=== PATIENT | female | born 1950 | race Caucasian/White ===

== ENCOUNTER 2020-12-18 10:03 | Outpatient (CLI) | payer MEDICARE, SELFPAY ==
--- NOTE | ~2020-12-18 | CT_ITS ---
EXAMINATION: CT lung screening EXAM DATE: 12/18/2020 10:37 INDICATION: Personal hx of tobacco use hx tobacco dependence . Cervical cancer. TECHNIQUE: Spiral low dose CT of the chest without contrast. Axial, coronal and sagittal images were reviewed. The dose-length product (DLP) for this examination was 189.34 mGy-cm. The exposure was t ailored according to patient size (auto mA exposure control), and iterative reconstruction (ASIR) was used as additional dose reduction technique. Comparison is made to prior examination from 07/27/2018 . FINDINGS: Calcified right upper lobe granuloma. Calcified mediastinal granulomata. There is [address] rage dimension left lower lobe lateral sulcus nodule unchanged, a noncalcified granuloma. Some scatte red linear lingular atelectasis. Lungs are otherwise clear, no suspicious intraparenchymal nodules. There occlusion of a subsegmental right lower lobe bronchus for about 5 mm of its course (axial image 82), without postobstructive atelectasis. This could be some debris but also could indicate endobron chial nodule, possibility which renders this category 4A. Tracheobronchial tree otherwise widely chaves nt. There is no mediastinal, hilar or axillary lymphadenopathy. There are no pleural or pericardial eff usions. There is no pneumothorax. Heart normal in size. There is mild coronary arterial calcifi cation, arterial sclerosis. Small left adrenal adenoma. There is mild to moderate thoracic spondylo sis without osteoblastic or osteolytic lesions identified. IMPRESSION: Lung-RADS category 4A, suspicious (5-15 % chance of malignancy); recommend followup LDCT in 3 months. Reviewed, dictated and finalized at location B. IMPRESSION: Lung-RADS category 4A, suspicious (5-15 % chance of malignancy); re commend followup LDCT in 3 months.
--- NOTE | ~2020-12-18 | DEXA_ITS ---
Bone Density Report Name: Carol Perez Age: 70 Sex: Female Ethnicity: White Date of : 1950 Indication: postmenopausal; screening for osteoporosis; height loss; history of glucocorticoids; cancer; hysterectomy; Referring Provider: Bobby Minor Study: Bone densitometry was performed. Exam Date: December 18, 2020 Accession number: [id number] Bone Density: Region BMD T-score Z-score Classification AP Spine(L1, L2, L3) 0.944 -0.7 1.3 Normal Femoral Neck (Left) 0.758 -0.8 0.9 Normal Total Hip (Left) 0.939 0.0 1.4 Normal Femoral Neck (Right) 0.785 -0.6 1.1 Normal Total Hip (Right) 0.966 0.2 1.6 Normal Femoral Neck Mean 0.771 -0.7 1.0 Normal Total Hip Mean 0.952 0.1 1.5 Normal World Health Organization criteria for BMD impression classify patients as: Normal (T-score at or above -1.0), Osteopenia (T-score between -1.0 and -2.5), or Osteoporosis (T-score at or below -2.5). 10-year Fracture Risk: FRAX not reported because: All T-scores for Spine Total, Hip Total, Femoral Neck at or above -1.0 Clinical Information Provided by Patient: Has taken Glucocorticoids Has used the following medications: Vitamin D, Calcium Has the following medical conditions: Cancer, Hysterectomy, hypothyroidism Patient maximum height was 66 Menopause Age: 27 Drinks caffeinated beverages Onset of menses at age 15 Number of children 0 Impression: The patient has normal bone mass. The patient has risk factors, including: history of glucocorticoid therapy. Discussion: BONE DENSITY IS ABOVE THE MINIMUM DESIRABLE LEVEL AT ALL SKELETAL SITES TESTED. This patient?s bone mineral density is above the minimum desirable level (T-score -1.0 or better) at all sites measured. The patient should follow a healthful lifestyle (good nutrition with adequate calcium and vitamin D, and appropriate weight-bearing exercise). Follow-Up: Consider repeating this study in 5 years or sooner if there is some new clinical indication. Reported by: Dr. Neftaly Javier on 12/18/2020 11:13:00 AM. Reviewed, dictated and finalized at [facility]
--- NOTE | ~2020-12-18 | MM_ITS ---
EXAMINATION: MM screening dru BI w kristi HISTORY: Screening TECHNIQUE: Craniocaudal and mediolateral oblique 3-D tomosynthesis images were obtained and synthetic 2-D images were generated. CAD analysis was submitted and interpreted. COMPARISON: Comparison to multiple prior studies sequentially, with oldest reviewed study dated 03/03. BREAST PARENCHYMAL COMPOSITION: There are scattered areas of fibroglandular density. FINDINGS: There is no evidence of suspicious mass, calcification, or architectural distortion to sugg est malignancy in either breast. There has been no suspicious interval change. IMPRESSION: 1. No mammographic evidence of malignancy. 2. Recommend routine screening mammography in one year. BI-RADS Category 1: Negative Reviewed, dictated and finalized at location A.
== END 2020-12-18 10:04 | disposition home or self-care (01) ==
PROVIDERS: PCP Internal Medicine; Visit Provider Internal Medicine
DX: Z12.2 Encounter for screening for malignant neoplasm of respiratory organs (principal); Z87.891 Personal history of nicotine dependence; Z12.31 Encounter for screening mammogram for malignant neoplasm of breast; M81.0 Age-related osteoporosis without current pathological fracture
CPT/HCPCS: 71271; 77063; 77067; 77080

== ENCOUNTER 2021-06-08 07:06 | Outpatient (CLI) | payer MEDICARE, BC, SELFPAY ==
[2021-06-08 07:21] LABS: Appearance Urine Clear (Clear); Bilirubin Urine Negative (Negative); Color Urine Light Yellow (Yellow); Glucose Urine UA Negative (Negative); Ketones Urine Negative (Negative); Leukocyte Esterase Ur Negative (Negative); Nitrate Urine Negative (Negative); Protein Urine Negative (Negative); Urobilinogen Urine 0.2 mg/dL (0.2-1.0)
[2021-06-08 07:27] LABS: Add Urine Microscopic? YES; Bacteria Urine 1+ /hpf; Blood Urine Trace-Intact (Negative); RBC Urine None seen /hpf (0-2); Squamous Epithelial Cell Urine Few /hpf (Few); WBC Urine 0-3 /hpf (0-3)
[2021-06-08 07:30] LABS: Hemoglobin A1C 5.7 % (<5.7)
[2021-06-08 09:17] LABS: Alanine Aminotransferase 33 U/L (14-59); Albumin Level 4.3 g/dL (3.4-5.0); Alkaline Phosphatase 58 U/L (46-116); Anion Gap 7 mmol/L (8-16); Aspartate Amino Transferase 18 U/L (15-37); Bilirubin,Total 0.5 mg/dL (0.00-1.00); Blood Urea Nitrogen 13 mg/dL (7-18); Carbon Dioxide 33 mmol/L (21-32); Chloride 102 mmol/L (98-108); Cholesterol 257 mg/dL (0-200); Creatine Kinase 106 U/L (26-192); Estimated Glomerular Filt Rate 59; Free T3 2.58 pg/mL (2.18-3.98); Free T4 Free Thyroxine 1.08 ng/dL (0.76-1.46); Glucose 112 mg/dL (70-99); HDL Direct 49 mg/dL (40-60); LDL Cholesterol Calculated 171 mg/dL (<130); Osmolality Calculated 295 mOsm/kg (285-295); Potassium 4.2 mmol/L (3.5-5.1); Sodium 142 mmol/L (136-145); Thyroid Stimulating Hormone 3.62 uIU/mL (0.36-3.74); Total Protein 7.4 g/dL (6.4-8.2); Triglycerides 187 mg/dL (0-150)
[2021-06-10 14:31] LABS: Vitamin D 25 Hydroxy 33 ng/mL (30-100)
== END 2021-06-08 07:07 | disposition home or self-care (01) ==
LOC: CHSLAB 07:12
PROVIDERS: PCP Internal Medicine; Visit Provider Internal Medicine
DX: E78.2 Mixed hyperlipidemia (principal); I10 Essential (primary) hypertension; R73.01 Impaired fasting glucose; E03.4 Atrophy of thyroid (acquired); M81.0 Age-related osteoporosis without current pathological fracture
CPT/HCPCS: 36415; 80053; 80061; 81001; 82306; 82550; 83036; 84439; 84443; 84481

== ENCOUNTER 2021-06-29 10:11 | Outpatient (CLI) | payer MEDICARE, BC, SELFPAY ==
--- NOTE | ~2021-06-29 | CT_ITS ---
EXAMINATION: CT abdomen pelvis wo con DATE: 06/29/2021 10:34 INDICATION: Periumbilical pain/pressure when stretching of bending over TECHNIQUE: Computed tomography (CT) of the abdomen and pelvis was performed without intravenous contr ast. Automated exposure control and iterative reconstruction technique were employed. Exam dose: 115 8.90 mGy-cm total exam DLP. COMPARISON: None. FINDINGS: Normal heart size. No pericardial or pleural effusion. The lung bases are clear of infiltra te or consolidation. Very small sliding hiatal hernia. The liver, gallbladder, bile ducts are unremarkable. Multiple calcified splenic granulomas. No spleno megaly. No pancreatic mass lesion, calcification or ductal dilatation. Normal morphology of the adrenal glands. No renal mass lesion or urinary tract calculus or hydroureteronephrosis. The urinary bladder is unrem arkable. Status post hysterectomy. Normal caliber of the abdominal aorta; no abdominal aortic aneurysm. No intraperitoneal or retroperit wick or pelvic mass lesion or ascites. There is diverticulosis of the sigmoid colon; no CT evidence of diverticulitis. No bowel obstruction, bowel wall thickening, pneumatosis or free air. No umbilical hernia. There is a small fat-containing supraumbilical midline ventral abdominal wall hernia. No suspicious osteolytic or osteoblastic lesions are noted. There is prominent spurring lower thoraci c spine, prominent degenerative change of the apophyseal joints of the lumbar and lumbosacral area an d diffuse osteopenia. IMPRESSION: Small supraumbilical fat-containing midline ventral abdominal wall hernia Very small sliding hiatal hernia Status post hysterectomy Diverticulosis of the sigmoid colon; no CT evidence of diverticulitis Reviewed, dictated and finalized at Location A. Reviewed, dictated and finalized at location A. [employer]
== END 2021-06-29 10:12 | disposition home or self-care (01) ==
LOC: CHSIMG 10:13
PROVIDERS: PCP Internal Medicine; Visit Provider Surgery
DX: R10.33 Periumbilical pain (principal)
CPT/HCPCS: 74176

== ENCOUNTER 2022-01-21 07:15 | Outpatient (CLI) | payer MEDICARE, SELFPAY ==
[2022-01-21 07:49] LABS: Basophils Absolute Auto 0.03 K/mm3 (0.00-0.10); Basophils Percent Auto 0.5 % (0.0-1.0); Eosinophils Absolute Auto 0.16 K/mm3 (0.02-0.50); Eosinophils Percent Auto 2.6 % (1.0-6.0); Hematocrit 46.1 % (35.0-42.0); Hemoglobin 15.1 g/dL (11.7-13.8); Immature Granulocyte Absolute 0.02 K/mm3 (0.00-0.00); Immature Granulocyte Percent A 0.3 % (0.0-0.0); Lymphocytes Absolute Auto 1.61 K/mm3 (1.10-4.50); Mean Corpuscular HGB Conc 32.8 g/dL (32.0-36.0); Mean Corpuscular Hemoglobin 30.1 pg (27.0-31.0); Mean Platelet Volume 9.7 fl (9.2-11.8); Monocytes Percent Auto 6.5 % (2.0-11.0); Neutrophils Percent Auto 64.1 % (50.0-70.0); Platelet Count Result 296 K/mm3 (150-420); Red Blood Count 5.01 M/mm3 (4.20-5.40); Red Cell Distribution Width 12.8 % (11.6-14.4); White Blood Count 6.2 K/mm3 (4.8-10.8)
[2022-01-21 08:08] LABS: Creatinine Urine 75.84 mg/dL (40-278); MALB Creatinine Ratio 17.1 mg/g (0-30); Microalbumin Urine Random < 13.0 mg/L
[2022-01-21 08:20] LABS: Hemoglobin A1C 5.7 % (<5.7)
[2022-01-21 08:25] LABS: Alanine Aminotransferase 29 U/L (14-59); Albumin Level 3.8 g/dL (3.4-5.0); Alkaline Phosphatase 56 U/L (46-116); Anion Gap 8 mmol/L (8-16); Aspartate Amino Transferase 20 U/L (15-37); Bilirubin,Total 0.6 mg/dL (0.00-1.00); Blood Urea Nitrogen 15 mg/dL (7-18); Carbon Dioxide 29 mmol/L (21-32); Chloride 104 mmol/L (98-108); Cholesterol 264 mg/dL (0-200); Creatine Kinase 105 U/L (26-192); Estimated Glomerular Filt Rate > 60; Free T4 Free Thyroxine 1.12 ng/dL (0.76-1.46); Glucose 107 mg/dL (70-99); HDL Direct 50 mg/dL (40-60); LDL Cholesterol Calculated 180 mg/dL (<130); Osmolality Calculated 292 mOsm/kg (285-295); Potassium 3.9 mmol/L (3.5-5.1); Sodium 141 mmol/L (136-145); Total Protein 7.4 g/dL (6.4-8.2); Triglycerides 168 mg/dL (0-150)
[2022-01-21 08:39] LABS: Appearance Urine Clear (Clear); Bilirubin Urine Negative (Negative); Color Urine Light Yellow (Yellow); Glucose Urine UA Negative (Negative); Ketones Urine Negative (Negative); Leukocyte Esterase Ur Negative LEU/UL (Negative); Nitrate Urine Negative (Negative); Protein Urine Negative (Negative); Urobilinogen Urine 0.2 mg/dL (0.2-1.0); pH Urine 6.5 (5.0-8.0)
[2022-01-21 09:04] LABS: Add Urine Microscopic? YES; Bacteria Urine Trace /hpf; Blood Urine Trace-Intact (Negative); RBC Urine 0-2 /hpf (0-2); Squamous Epithelial Cell Urine Few /hpf (Few); WBC Urine 0-3 /hpf (0-3)
[2022-01-21 16:05] LABS: Free T3 2.17 pg/mL (2.18-3.98)
== END 2022-01-21 07:16 | disposition home or self-care (01) ==
LOC: CHSLAB 07:19
PROVIDERS: PCP Internal Medicine; Visit Provider Internal Medicine
DX: E03.9 Hypothyroidism, unspecified (principal); E11.9 Type 2 diabetes mellitus without complications; E78.5 Hyperlipidemia, unspecified; I10 Essential (primary) hypertension; N39.0 Urinary tract infection, site not specified
CPT/HCPCS: 36415; 80053; 80061; 81001; 82043; 82550; 83036; 84439; 84443; 84481; 85025

== ENCOUNTER 2022-03-10 00:57 | Day surgery (SDC) | payer MEDICARE, BC, SELFPAY ==
[2022-02-23 12:41] VITALS: BMI 34.7
[2022-03-10 07:46] VITALS: BP 135/76; PULSE 58; RESP 18; TEMP 36; O2SAT 97; BMI 34.5
[2022-03-10] MEDS: LACTATED RINGERS 1,000 ML 150 ML IV CONT (08:00)
--- NOTE | 2022-03-10 08:27 | WPDANESEPPF ---
Anes - Initial Pre Proc Eval Procedure: Operation Date: 03/10/22 08:30 Proposed Procedures p Screening Colonoscopy - Indio Hernandez DO Date/Time: 03/10/22 08:27 Surgeon: Indio Hernandez DO Pre Op Diagnosis: neoplasm screening Patient Data Age: 71 Gender: F Height: 1.68 m Weight: 97.1 kg Last Vital Signs Temp 36.0 C L 03/10/22 07:46 Pulse 58 L 03/10/22 07:46 Resp 18 03/10/22 07:46 BP 135/76 03/10/22 07:46 Pulse Ox 97 03/10/22 07:46 O2 Del Method Room Air 03/10/22 07:46 Allergies Allergy/AdvReac Type Severity Reaction Status Date / Time codeine Allergy Mild Shortness Verified 03/10/22 07:45 of breath quinapril Allergy Mild Unknown Verified 03/10/22 07:45 rosuvastatin Allergy Mild Unknown Verified 03/10/22 07:45 simvastatin Allergy Mild Unknown Verified 03/10/22 07:45 Home Medications Medication Instructions Recorded Confirmed Type atorvastatin 40 mg tablet 40 mg PO DAILY 06/22/21 02/23/22 History cholecalciferol (vitamin D3) 50 50 mcg PO DAILY 06/22/21 02/23/22 History mcg (2,000 unit) capsule levothyroxine 112 mcg capsule 112 mcg PO DAILY 06/22/21 02/23/22 History metoprolol succinate 25 mg 25 mg PO DAILY 06/22/21 02/23/22 History tablet,extended release 24 hr triamterene 37.5 1 cap PO DAILY 06/22/21 02/23/22 History mg-hydrochlorothiazide 25 mg capsule Patient hx anesthesia problems: none Family hx anesthesia problems: none Results Review: All pre-operative results and documents have been reviewed as part of the pre-operative evaluation. [facility] Past Medical History Medical History High cholesterol History of carcinoma in situ of cervix Hypertension, essential Thyroid disease Surgical History Surgical History History of hysterectomy 1978 History of knee replacement procedure of right knee History of tonsillectomy History of ventral hernia repair x2 and both with mesh. 2016 in [place] and 2009 at [facility]. Family History Family History Sibling Family history of malignant neoplasm Mother Carcinoma of colon Family history of malignant neoplasm of breast Other Family history of allergic disorder Hypertension Social History Social History Smoking packs per day: 2 Smoking cigarettes per day: 40.0 Years smoked: 35 Smoking pack-years: 70.00 Smoking status: Former smoker Tobacco type: cigarettes Smoking end date: 08/14/11 Alcohol intake: current Drinks per week: 5 Alcohol use details: Socially Substance use: never Substance use type: does not use Living arrangements: with family Spiritual care concerns: No Anes - Eval Final PreProcedure Day of Procedure 03/10/22 08:27 Patient weight: obese Heart: regular rate and rhythm Lungs: clear to auscultation Airway: Mallampati scale class II Neurological: alert and oriented Last oral intake: >/= 8 hours ASA classification: III Emergent: no Anesthesia type and monitoring: general GIVS and standard monitoring Results Review: All pre-operative results and documents have been reviewed as part of the pre-operative evaluation. Informed Consent: The patient's anesthetic plan and its attendant risks and benefits were discussed with the patient/family/POA. Questions were solicited and answers provided to the satisfaction of the patient/family/POA.
--- NOTE | 2022-03-10 08:37 | PM.IMHP ---
H&P: HPI History of Present Illness Date/Time: 03/10/22 08:37 Chief Complaint: history of polyps, family history colon cancer Narrative: this is a 71-year-old woman who presents for colonoscopy. She states her last colonoscopy was about 5 years ago. She had polyps removed at that time. She also has a family history of colon cancer in her brother and mother. She denies any hematochezia or melena. Review of Systems Review of Systems: All systems reviewed & are unremarkable except as noted in HPI and below Constitutional: Constitutional: Denies chills, Denies fever(s), Denies headache(s) and Denies weight loss Eyes: Eyes: Denies change in vision ENT: Denies dizziness, Denies headache(s), Denies neck mass and Denies throat swelling Cardiovascular: Cardiovascular: Denies chest pain, Denies lightheadedness and Denies dyspnea Respiratory: Respiratory: Denies cough, Denies dyspnea and Denies wheezing Gastrointestinal: Gastrointestinal: Denies abdominal pain, Denies change in bowel habits, Denies nausea and Denies vomiting Genitourinary: Genitourinary: Denies hematuria and Denies dysuria Musculoskeletal: Musculoskeletal: Reports as per HPI Integumentary/Breasts: Skin/Breast: Reports as per HPI Neurologic: Denies dizziness and Denies headache(s) Allergic/Immunologic: Allergic/Immunologic: Denies throat swelling and Denies wheezing PMF Past Medical History Medical History High cholesterol History of carcinoma in situ of cervix Hypertension, essential Thyroid disease Surgical History Surgical History History of hysterectomy 1978 History of knee replacement procedure of right knee History of tonsillectomy History of ventral hernia repair x2 and both with mesh. 2016 in [place] and 2009 at . Family History Family History Sibling Family history of malignant neoplasm Mother Carcinoma of colon Family history of malignant neoplasm of breast Other Family history of allergic disorder Hypertension Social History Social History Smoking packs per day: 2 Smoking cigarettes per day: 40.0 Years smoked: 35 Smoking pack-years: 70.00 Smoking status: Former smoker Tobacco type: cigarettes Smoking end date: 08/14/11 Alcohol intake: current Drinks per week: 5 Alcohol use details: Socially Substance use: never Substance use type: does not use Living arrangements: with family Spiritual care concerns: No Meds Home Medications and Allergies Home Medications Medication Instructions Recorded Confirmed Type atorvastatin 40 mg tablet 40 mg PO DAILY 06/22/21 02/23/22 History cholecalciferol (vitamin D3) 50 50 mcg PO DAILY 06/22/21 02/23/22 History mcg (2,000 unit) capsule levothyroxine 112 mcg capsule 112 mcg PO DAILY 06/22/21 02/23/22 History metoprolol succinate 25 mg 25 mg PO DAILY 06/22/21 02/23/22 History tablet,extended release 24 hr triamterene 37.5 1 cap PO DAILY 06/22/21 02/23/22 History mg-hydrochlorothiazide 25 mg capsule Allergies Allergy/AdvReac Type Severity Reaction Status Date / Time codeine Allergy Mild Shortness Verified 03/10/22 07:45 of breath quinapril Allergy Mild Unknown Verified 03/10/22 07:45 rosuvastatin Allergy Mild Unknown Verified 03/10/22 07:45 simvastatin Allergy Mild Unknown Verified 03/10/22 07:45 Vital Signs Vital Signs - 24 hr 03/10/22 07:46 Temperature 36.0 C L Pulse Rate 58 L Respiratory Rate 18 Blood Pressure 135/76 Pulse Oximetry 97 Oxygen Delivery Room Air Exam Const: General: no acute distress and alert Orientation/consciousness: patient oriented x3 HENMT: Head: normocephalic and atraumatic Ears: hearing grossly normal bilaterally General nose exam: Normal nares present Mouth:
[2022-03-10 09:20] VITALS: BP 123/72; PULSE 57; RESP 18; O2SAT 100
[2022-03-10 09:30] VITALS: BP 113/64; PULSE 60; RESP 18; O2SAT 100
[2022-03-10 09:40] VITALS: BP 136/75; PULSE 55; RESP 16; O2SAT 100
== END 2022-03-10 09:53 | disposition home or self-care (01) ==
PROVIDERS: PCP Internal Medicine; Visit Provider Surgery
PROC: 0DJD8ZZ Inspection of Lower Intestinal Tract, Via Natural or Artificial Opening Endoscopic (ICD-10-PCS; CPT 45378; principal; 2022-03-10 08:30)
DX: Z12.11 Encounter for screening for malignant neoplasm of colon (principal); D12.5 Benign neoplasm of sigmoid colon; K62.1 Rectal polyp; K57.30 Diverticulosis of large intestine without perforation or abscess without bleeding; K64.8 Other hemorrhoids; Z80.0 Family history of malignant neoplasm of digestive organs; I10 Essential (primary) hypertension; E78.00 Pure hypercholesterolemia, unspecified; E07.9 Disorder of thyroid, unspecified; Z87.891 Personal history of nicotine dependence; E66.9 Obesity, unspecified; Z68.34 Body mass index [BMI] 34.0-34.9, adult
CPT/HCPCS: 45380; 88305; J2704; J7120

== ENCOUNTER 2022-04-01 12:57 | Outpatient (CLI) | payer MEDICARE, BC, SELFPAY ==
--- NOTE | ~2022-04-01 | MM_ITS ---
EXAMINATION: MM screening dru BI w kristi HISTORY: Screening mammogram TECHNIQUE: Craniocaudal and mediolateral oblique 3-D tomosynthesis images were obtained and synthetic 2-D images were generated. CAD analysis was submitted and interpreted. COMPARISON: 12/18/2020 and 08/12/2019 bilateral screening mammogram examinations BREAST PARENCHYMAL COMPOSITION: There are scattered areas of fibroglandular density. FINDINGS: There is no evidence of suspicious mass, calcification, or architectural distortion to sugg est malignancy in either breast. There has been no suspicious interval change. IMPRESSION: 1. No mammographic evidence of malignancy. 2. Recommend routine screening mammography in one year. BI-RADS Category 1: Negative Reviewed, dictated and finalized at location A.
== END 2022-04-01 12:58 | disposition home or self-care (01) ==
LOC: CHSIMG 12:59
PROVIDERS: PCP Internal Medicine; Visit Provider Internal Medicine
DX: Z12.31 Encounter for screening mammogram for malignant neoplasm of breast (principal)
CPT/HCPCS: 77063; 77067

== ENCOUNTER 2022-12-02 07:37 | Outpatient (CLI) | payer MEDICARE, SELFPAY ==
[2022-12-02 07:49] LABS: Appearance Urine Clear (Clear); Basophils Absolute Auto 0.04 K/mm3 (0.00-0.10); Basophils Percent Auto 0.7 % (0.0-1.0); Bilirubin Urine Negative (Negative); Blood Urine 1+ (Negative); Color Urine Light Yellow (Yellow); Eosinophils Percent Auto 1.7 % (1.0-6.0); Glucose Urine UA Negative (Negative); Hemoglobin 15.1 g/dL (11.7-13.8); Immature Granulocyte Absolute 0.01 K/mm3 (0.00-0.00); Immature Granulocyte Percent A 0.2 % (0.0-0.0); Ketones Urine Negative (Negative); Leukocyte Esterase Ur Negative LEU/UL (Negative); Lymphocytes Absolute Auto 1.59 K/mm3 (1.10-4.50); Lymphocytes Percent Auto 26.2 % (18.0-42.0); Mean Corpuscular HGB Conc 33.6 g/dL (32.0-36.0); Mean Corpuscular Volume 92.4 fL (78.0-102.0); Mean Platelet Volume 9.7 fl (9.2-11.8); Monocytes Absolute Auto 0.37 K/mm3 (0.10-0.90); Monocytes Percent Auto 6.1 % (2.0-11.0); Neutrophils Percent Auto 65.1 % (50.0-70.0); Nitrate Urine Negative (Negative); Platelet Count Result 303 K/mm3 (150-420); Protein Urine Negative (Negative); Red Blood Count 4.87 M/mm3 (4.20-5.40); Red Cell Distribution Width 13.1 % (11.6-14.4); Specific Grav Ur 1.015 (1.010-1.020); Urobilinogen Urine 0.2 mg/dL (0.2-1.0); White Blood Count 6.1 K/mm3 (4.8-10.8)
[2022-12-02 07:59] LABS: Hemoglobin A1C 5.6 % (<5.7)
[2022-12-02 08:07] LABS: Add Urine Microscopic? YES; RBC Urine 0-2 /hpf (0-2)
[2022-12-02 08:08] LABS: Bacteria Urine 1+ /hpf; Squamous Epithelial Cell Urine Moderate /hpf (Few); WBC Urine None seen /hpf (0-3)
[2022-12-02 08:38] LABS: Alanine Aminotransferase 34 U/L (14-59); Alkaline Phosphatase 58 U/L (46-116); Anion Gap 8 mmol/L (8-16); Aspartate Amino Transferase 22 U/L (15-37); Bilirubin,Total 0.5 mg/dL (0.00-1.00); Blood Urea Nitrogen 16 mg/dL (7-18); Calcium 9.2 mg/dL (8.5-10.1); Carbon Dioxide 31 mmol/L (21-32); Chloride 103 mmol/L (98-108); Cholesterol 255 mg/dL (0-200); Creatine Kinase 104 U/L (26-192); Estimated Glomerular Filt Rate > 60; Free T3 2.47 pg/mL (2.18-3.98); Free T4 Free Thyroxine 1.02 ng/dL (0.76-1.46); Glucose 120 mg/dL (70-99); HDL Direct 43 mg/dL (40-60); LDL Cholesterol Calculated 169 mg/dL (<130); Osmolality Calculated 296 mOsm/kg (285-295); Potassium 4.3 mmol/L (3.5-5.1); Sodium 142 mmol/L (136-145); Total Protein 7.3 g/dL (6.4-8.2); Triglycerides 213 mg/dL (0-150)
== END 2022-12-02 07:38 | disposition home or self-care (01) ==
LOC: CHSLAB 07:39
PROVIDERS: PCP Internal Medicine; Visit Provider Internal Medicine
DX: E03.4 Atrophy of thyroid (acquired) (principal); E11.9 Type 2 diabetes mellitus without complications; I10 Essential (primary) hypertension; N39.0 Urinary tract infection, site not specified
CPT/HCPCS: 36415; 80053; 80061; 81001; 82550; 83036; 84439; 84443; 84481; 85025

== ENCOUNTER 2023-04-28 07:09 | Outpatient (CLI) | payer MEDICARE, BC, SELFPAY ==
--- NOTE | ~2023-04-28 | MM_ITS ---
EXAMINATION: MM screening dru BI w kristi HISTORY: Screening mammogram TECHNIQUE: Craniocaudal and mediolateral oblique 3-D tomosynthesis images were obtained and synthetic 2-D images were generated. CAD analysis was submitted and interpreted. COMPARISON: 04/01/2022, 12/18/2020, 08/12/2019 bilateral screening mammogram examinations BREAST PARENCHYMAL COMPOSITION: There are scattered areas of fibroglandular density. FINDINGS: There is no evidence of suspicious mass, calcification, or architectural distortion to sugg est malignancy in either breast. There has been no suspicious interval change. IMPRESSION: 1. No mammographic evidence of malignancy. 2. Recommend routine screening mammography in one year. BI-RADS Category 1: Negative Reviewed, dictated and finalized at location A.
== END 2023-04-28 07:10 | disposition home or self-care (01) ==
LOC: CHSIMG 07:10
PROVIDERS: PCP Internal Medicine; Visit Provider Internal Medicine
DX: Z12.31 Encounter for screening mammogram for malignant neoplasm of breast (principal)
CPT/HCPCS: 77063; 77067

== ENCOUNTER 2023-06-09 07:05 | Outpatient (CLI) | payer MEDICARE, SELFPAY ==
[2023-06-09 07:25] LABS: Basophils Absolute Auto 0.03 K/mm3 (0.00-0.10); Basophils Percent Auto 0.6 % (0.0-1.0); Eosinophils Absolute Auto 0.12 K/mm3 (0.02-0.50); Eosinophils Percent Auto 2.2 % (1.0-6.0); Hematocrit 43.9 % (35.0-42.0); Hemoglobin 14.4 g/dL (11.7-13.8); Immature Granulocyte Absolute 0.01 K/mm3 (0.00-0.00); Immature Granulocyte Percent A 0.2 % (0.0-0.0); Lymphocytes Absolute Auto 1.46 K/mm3 (1.10-4.50); Mean Corpuscular HGB Conc 32.8 g/dL (32.0-36.0); Mean Corpuscular Hemoglobin 29.7 pg (27.0-31.0); Mean Corpuscular Volume 90.5 fL (78.0-102.0); Mean Platelet Volume 9.6 fl (9.2-11.8); Monocytes Absolute Auto 0.36 K/mm3 (0.10-0.90); Monocytes Percent Auto 6.7 % (2.0-11.0); Neutrophils Absolute Auto 3.4 K/mm3 (1.7-7.2); Neutrophils Percent Auto 63.3 % (50.0-70.0); Platelet Count Result 268 K/mm3 (150-420); Red Blood Count 4.85 M/mm3 (4.20-5.40); Red Cell Distribution Width 12.5 % (11.6-14.4); White Blood Count 5.4 K/mm3 (4.8-10.8)
[2023-06-09 07:26] LABS: Appearance Urine Clear (Clear); Bilirubin Urine Negative (Negative); Blood Urine Trace-Intact (Negative); Color Urine Light Yellow (Yellow); Glucose Urine UA Negative (Negative); Ketones Urine Negative (Negative); Leukocyte Esterase Ur Negative (Negative); Nitrate Urine Negative (Negative); Protein Urine Negative (Negative); Specific Grav Ur 1.015 (1.010-1.020); Urobilinogen Urine 0.2 mg/dL (0.2-1.0)
[2023-06-09 07:35] LABS: Creatinine Urine 55.28 mg/dL (40-278); MALB Creatinine Ratio 23.5 mg/g (0-30); Microalbumin Urine Random < 13.0 mg/L
[2023-06-09 07:48] LABS: Add Urine Microscopic? YES
[2023-06-09 07:49] LABS: Bacteria Urine 2+ /hpf; RBC Urine 0-2 /hpf (0-2); Squamous Epithelial Cell Urine Moderate /hpf (Few); WBC Urine 0-3 /hpf (0-3)
[2023-06-09 08:13] LABS: Hemoglobin A1C 6.1 % (<5.7)
[2023-06-09 08:51] LABS: Alanine Aminotransferase 41 U/L (14-59); Albumin Level 3.9 g/dL (3.4-5.0); Alkaline Phosphatase 60 U/L (46-116); Anion Gap 11 mmol/L (8-16); Aspartate Amino Transferase 20 U/L (15-37); Bilirubin,Total 0.5 mg/dL (0.00-1.00); Blood Urea Nitrogen 23 mg/dL (7-18); Calcium 9.4 mg/dL (8.5-10.1); Carbon Dioxide 28 mmol/L (21-32); Chloride 103 mmol/L (98-108); Cholesterol 253 mg/dL (0-200); Creatine Kinase 95 U/L (26-192); Estimated Glomerular Filt Rate > 60; Free T3 2.63 pg/mL (2.18-3.98); Free T4 Free Thyroxine 0.92 ng/dL (0.76-1.46); Glucose 113 mg/dL (70-99); HDL Direct 47 mg/dL (40-60); LDL Cholesterol Calculated 166 mg/dL (<130); Osmolality Calculated 298 mOsm/kg (285-295); Potassium 4.5 mmol/L (3.5-5.1); Sodium 142 mmol/L (136-145); Thyroid Stimulating Hormone 6.57 uIU/mL (0.36-3.74); Triglycerides 199 mg/dL (0-150)
== END 2023-06-09 07:06 | disposition home or self-care (01) ==
LOC: CHSLAB 07:08
PROVIDERS: PCP Internal Medicine; Visit Provider Internal Medicine
DX: E03.4 Atrophy of thyroid (acquired) (principal); E78.2 Mixed hyperlipidemia; E11.9 Type 2 diabetes mellitus without complications; I10 Essential (primary) hypertension; L20.84 Intrinsic (allergic) eczema
CPT/HCPCS: 36415; 80053; 80061; 81001; 82043; 82550; 83036; 84439; 84443; 84481; 85025

== ENCOUNTER 2023-08-10 08:22 | Outpatient (CLI) | payer MEDICARE, SELFPAY ==
[2023-08-10 09:39] LABS: Alanine Aminotransferase 40 U/L (14-59); Alkaline Phosphatase 48 U/L (46-116); Anion Gap 4 mmol/L (8-16); Aspartate Amino Transferase 18 U/L (15-37); Bilirubin,Total 0.4 mg/dL (0.00-1.00); Blood Urea Nitrogen 20 mg/dL (7-18); Calcium 9.4 mg/dL (8.5-10.1); Carbon Dioxide 35 mmol/L (21-32); Chloride 100 mmol/L (98-108); Cholesterol 236 mg/dL (0-200); Creatine Kinase 97 U/L (26-192); Estimated Glomerular Filt Rate > 60; Free T3 2.89 pg/mL (2.18-3.98); Free T4 Free Thyroxine 1.08 ng/dL (0.76-1.46); Glucose 117 mg/dL (70-99); HDL Direct 45 mg/dL (40-60); LDL Cholesterol Calculated 157 mg/dL (<130); Osmolality Calculated 291 mOsm/kg (285-295); Potassium 4.3 mmol/L (3.5-5.1); Sodium 139 mmol/L (136-145); Thyroid Stimulating Hormone 1.47 uIU/mL (0.36-3.74); Total Protein 7.3 g/dL (6.4-8.2); Triglycerides 170 mg/dL (0-150)
== END 2023-08-10 08:23 | disposition home or self-care (01) ==
LOC: CHSLAB 08:23
PROVIDERS: PCP Internal Medicine; Visit Provider Internal Medicine
DX: E03.4 Atrophy of thyroid (acquired) (principal); E78.2 Mixed hyperlipidemia
CPT/HCPCS: 36415; 80053; 80061; 82550; 84439; 84443; 84481

== ENCOUNTER 2023-12-28 07:35 | Outpatient (CLI) | payer MEDICARE, SELFPAY ==
[2023-12-28 08:10] LABS: Appearance Urine Clear (Clear); Basophils Absolute Auto 0.03 K/mm3 (0.00-0.10); Basophils Percent Auto 0.5 % (0.0-1.0); Bilirubin Urine Negative (Negative); Blood Urine Negative (Negative); Color Urine Light Yellow (Yellow); Eosinophils Absolute Auto 0.11 K/mm3 (0.02-0.50); Eosinophils Percent Auto 1.8 % (1.0-6.0); Glucose Urine UA Negative (Negative); Hematocrit 43.1 % (35.0-42.0); Hemoglobin 13.6 g/dL (11.7-13.8); Immature Granulocyte Absolute 0.03 K/mm3 (0.00-0.00); Immature Granulocyte Percent A 0.5 % (0.0-0.0); Ketones Urine Negative (Negative); Leukocyte Esterase Ur Negative LEU/UL (Negative); Lymphocytes Absolute Auto 1.38 K/mm3 (1.10-4.50); Lymphocytes Percent Auto 22.7 % (18.0-42.0); Mean Corpuscular HGB Conc 31.6 g/dL (32-36); Mean Corpuscular Hemoglobin 28.9 pg (27.0-31.0); Mean Corpuscular Volume 91.5 fL (78.0-102.0); Mean Platelet Volume 9.4 fl (9.2-11.8); Monocytes Absolute Auto 0.33 K/mm3 (0.10-0.90); Monocytes Percent Auto 5.4 % (2.0-11.0); Neutrophils Absolute Auto 4.19 K/mm3 (1.70-7.20); Neutrophils Percent Auto 69.1 % (50.0-70.0); Nitrate Urine Negative (Negative); Platelet Count Result 304 K/mm3 (150-420); Protein Urine Negative (Negative); Red Blood Count 4.71 M/mm3 (4.20-5.40); Red Cell Distribution Width 12.2 % (11.6-14.4); Specific Grav Ur >= 1.030 (1.010-1.020); Urobilinogen Urine 0.2 mg/dL (0.2-1.0); White Blood Count 6.1 K/mm3 (4.8-10.8)
[2023-12-28 08:37] LABS: Hemoglobin A1C 6.1 % (<5.7)
[2023-12-28 08:47] LABS: Add Urine Microscopic? NO
[2023-12-28 09:22] LABS: Alanine Aminotransferase 29 U/L (14-59); Albumin Level 3.9 g/dL (3.4-5.0); Alkaline Phosphatase 43 U/L (46-116); Anion Gap 7 mmol/L (4-12); Aspartate Amino Transferase 17 U/L (15-37); Bilirubin,Total 0.4 mg/dL (0.00-1.00); Blood Urea Nitrogen 20 mg/dL (7-18); Calcium 9.1 mg/dL (8.5-10.1); Carbon Dioxide 31 mmol/L (21-32); Chloride 103 mmol/L (98-108); Cholesterol 223 mg/dL (0-200); Creatine Kinase 93 U/L (26-192); Estimated Glomerular Filt Rate 59; Free T3 2.53 pg/mL (2.18-3.98); Free T4 Free Thyroxine 0.84 ng/dL (0.76-1.46); Glucose 128 mg/dL (70-99); HDL Direct 47 mg/dL (40-60); LDL Cholesterol Calculated 144 mg/dL (<130); Osmolality Calculated 296 mOsm/kg (285-295); Potassium 4.1 mmol/L (3.5-5.1); Sodium 141 mmol/L (136-145); Thyroid Stimulating Hormone 3.23 uIU/mL (0.36-3.74); Total Protein 7.1 g/dL (6.4-8.2); Triglycerides 159 mg/dL (0-150)
== END 2023-12-28 07:36 | disposition home or self-care (01) ==
LOC: CHSLAB 07:38
PROVIDERS: PCP Internal Medicine; Visit Provider Internal Medicine
DX: N39.0 Urinary tract infection, site not specified (principal); E03.4 Atrophy of thyroid (acquired); E11.65 Type 2 diabetes mellitus with hyperglycemia; E78.2 Mixed hyperlipidemia
CPT/HCPCS: 36415; 80053; 80061; 81003; 82550; 83036; 84439; 84443; 84481; 85025

== ENCOUNTER 2024-01-16 07:51 | Outpatient (RCR) | payer MEDICARE, BC, SELFPAY ==
--- NOTE | 2024-01-16 12:30 | OPREHPOC ---
Outpatient Therapy Plan of Care This is a Multidisciplinary Plan of Care that may contain components documented by all disciplines (PT, OT, and ST.) PT Problem 1 PT Problem #1 Knowledge Deficit PT Goal 1 Goal The patient will be independent in a home exercise program. Target Visit 4 PT Problem 2 PT Problem #2 Pain PT Goal 1 Goal The patient will report no greater than 3/10 right shoulder pain with ADLs. Target Visit 10 PT Problem 3 PT Problem #3 Impaired Range of Motion PT Goal 1 Goal The patient will improve right shoulder flexion and abduction to 160 degrees to improve ability to lift overhead. Target Visit 10 PT Problem 4 PT Problem #4 Impaired Functional Mobil PT Goal 1 Goal The patient will demonstrate less than 25% self perceived disability with Quick DASH. Target Visit 10 PT Problem 5 PT Problem #5 Impaired Strength PT Goal 1 Goal The patient will demonstrate 4+/5 right shoulder strength to improve lifting ability. Target Visit 10
--- NOTE | 2024-01-16 12:30 | PTOPEVAL1 ---
Assessment and note entered by Maddie Burden, PT Evaluation Information Assessment Status Evaluation Diagnosis R shoulder pain Onset 09/14/23 Subjective Information Carol Hatch reports she has right shoulder pain that started in September 2023 and has slowly gotten worse. She notes difficulty setting her purse or a bag down to the side, lifting overhead, laying on the right side, and mildly when reaching behind back. She saw her PCP and was referred to PT. Reported Pain Level Pain Score 5: Self Report Assessment PT Clinical Summary Carol Hatch presents with right shoulder pain that started in September 2023 for unknown reasons. She is reporting difficulty lifting items to the side, reaching overhead, reaching behind the back, and laying on the right side. She demonstrates decreased and painful right shoulder strength, decreased right shoulder flexion and abduction AROM with a painful arc noted, impaired posture, and positive special tests for shoulder impingement and tendonitis. She will benefit from skilled PT to address these limitations. Plan of Care Interventions Electrical Stimulation,Hot Pack/Cold Pack,Manual Therapy,Patient/Caregiver Educati,Therapeutic Activities,Therapeutic Exercise PT Services Indicated Yes Treatment Frequency and 2 times a week for 10 visits Duration These treatments will address the objective and functional deficits as defined above. The patient will be advanced safely and appropriately in order for the patient to progress towards his/her prior level of function. Additional exercises will be introduced and as well as a comprehensive home exercise program upon discharge, if needed, ?to ensure carryover of functional gains achieved in the clinic. This treatment plan has been reviewed and agreement upon by the patient.
--- NOTE | 2024-01-29 09:27 | PCPTNOTE ---
Patient cancelled session today.
--- NOTE | 2024-04-10 07:54 | PTOPDC ---
Assessment and note entered by Maddie Burden, PT Evaluation Information Assessment Status Discharge - Pt Not Presen Diagnosis R shoulder pain ICD-10 Condition Codes (PT) M25.511 Onset 09/14/23 Subjective Information Carol Hatch is not present for her discharge however, she called on 01/29/24 and wanted to cancel all of her appointments until she followed up with cardiology after being placed on a heart monitor for 30 days starting 01/24/24. Assessment PT Clinical Summary Carol Hatch completed 2 skilled PT visits for R shoulder pain. She called on 01/29/24 and wanted to cancel all of her appointments until she followed up with cardiology after being placed on a heart monitor for 30 days starting 01/24/24. She did not call for additional PT visits and will be discharged. Plan of Care PT Services Indicated No
== END 2024-01-24 14:36 | disposition home or self-care (01) ==
LOC: CHSPT 07:51
PROVIDERS: Visit Provider Internal Medicine
DX: M25.511 Pain in right shoulder (principal)
CPT/HCPCS: 97014; 97110; 97161; G0283

== ENCOUNTER 2024-01-18 10:49 | Outpatient (CLI) | payer MEDICARE, BC, SELFPAY ==
--- NOTE | 2024-02-12 11:19 | WPDHOLTEREM ---
Holter/Event Monitor Holter/Event Monitor Date of procedure: 01/18/24 Holter/Event Procedure: Event Monitor Indications: Palpitations Conclusion: 1. 24 days event monitor between 01/18/24-02/12/24. There are 8 available transmissions for analysis. 2. Underlying rhythm is sinus rhythm. HR range 50-120 bpm; average HR 71 bpm. 3. There are occasional premature supraventricular complexes with total burden of <1%. No supraventricular tachycardia. 4. There are occasional premature ventricular complexes with total burden of 1%. No ventricular tachycardia. 5. No significant pauses greater than 2 seconds. 6. Patient reports 3 episodes of symptoms of shortness of breath and symptoms other than listed which demonstrate sinus rhythm, HR range 77-100 bpm with 1 episode with PAC.
== END 2024-01-18 10:50 | disposition home or self-care (01) ==
LOC: CHSCARD 10:50
PROVIDERS: PCP Internal Medicine; Visit Provider Internal Medicine
DX: R00.2 Palpitations (principal)
CPT/HCPCS: 93270

== ENCOUNTER 2024-03-08 09:30 | Outpatient (CLI) | payer MEDICARE, BC, SELFPAY ==
--- NOTE | 2024-03-08 09:45 | ECG_ITS ---
Test Date: 2024-03-08 09:52:27 Measurements Intervals [place] Rate: 71 P: 75 MA: 198 QRS: 65 QRSD: 95 T: 70 QT: 418 QTc: 454 Interpretive Statements SINUS RHYTHM INCOMPLETE RIGHT BUNDLE BRANCH BLOCK BORDERLINE ECG No previous ECG available for comparison Electronically Signed On 03-08-2024 10:21:59 CDT by John Livingston D.O.
[2024-03-08 10:24] LABS: Anion Gap 7 mmol/L (4-12); Blood Urea Nitrogen 14 mg/dL (7-18); Calcium 9.3 mg/dL (8.5-10.1); Carbon Dioxide 31 mmol/L (21-32); Chloride 101 mmol/L (98-108); Estimated Glomerular Filt Rate > 60; Glucose 147 mg/dL (70-99); Osmolality Calculated 291 mOsm/kg (285-295); Sodium 139 mmol/L (136-145)
== END 2024-03-08 09:31 | disposition home or self-care (01) ==
LOC: CHSLAB 09:32
PROVIDERS: PCP Internal Medicine; Visit Provider Anesthesiology
DX: Z01.818 Encounter for other preprocedural examination (principal); I10 Essential (primary) hypertension; Z51.81 Encounter for therapeutic drug level monitoring; I45.19 Other right bundle-branch block
CPT/HCPCS: 36415; 80048; 93005

== ENCOUNTER 2024-03-11 00:28 | Day surgery (SDC) | payer MEDICARE, BC, SELFPAY ==
[2024-03-05 15:35] VITALS: BMI 39.9
--- NOTE | 2024-03-05 15:55 | PC.NURSE ---
Report to the Outpatient Waiting Room, entrance under the green pavilion located off [facility], at time __6:00AM on date ___03/11/24____. Planned Procedure Time: __7:30AM . Time changes happen often and if your time is changed the preop area will call you the afternoon before. - You and your visitor will be asked to self-screen and do not enter if you have any COVID symptoms. - A mask is optional within the hospital at this time. Patients may have clear liquids (water, carbonated beverages, clear teas, apple juice) until 3 hours prior to surgery with a maximum of 20 ounces. - No food from midnight until time of surgery. Take the following medications with a SIP of water the morning of surgery: ____AMLODIPINE, LEVOTHYROXINE, METOPROLOL DO NOT STOP ANY OF YOUR OTHER PRESCRIPTION MEDICATIONS PRIOR TO SURGERY ?EXCEPT THE FOLLOWING Medications to discontinue per physician HOLD ALL VITAMINS/SUPPLEMENTS 3 DAYS PRE-OP PEER ANESTHESIA Date to take last dose 03/07/24 Please no make-up, nail cameroonian, hairspray, perfume, deodorant, or body powder the day of surgery. No jewelry (including any body piercings) or valuables the day of surgery, leave them at home. Please take a shower or bath the night before, or the morning of, surgery with an antibacterial soap. Wear comfortable, loose fitting clothing. Children are encouraged to wear pajamas. - Jewelry must be removed prior to entering the operating room. Rings and piercings that are not removed may be cut off. - The hospital will not accept responsibility for valuables. - Please leave all valuables, including medications, at home the day of surgery. If you are going home after surgery, a licensed [place]okie driver must drive you home. - NO public transportation without another adult if you receive anesthesia. - We recommend that an adult stay with you for 24 hours following discharge. - We also recommend that you do not drive, make important decision, drink alcoholic beverages, or take any drugs that were not prescribed by your health care provider for at least 24 hours after your discharge time. Follow any additional instructions given to you from your surgeon. If you or anyone in your household have experienced Covid symptoms in the past week, please notify your surgeon or the nurse liaison at the phone number below for possible testing. Telephone instructions given to ____PATIENT and asked if any additional questions and then verbalized understanding. Patient advised to call surgeon office or pre surgery nurse liaison [phone] if any additional questions.
[2024-03-11 06:15] VITALS: BP 117/75; PULSE 75; RESP 18; TEMP 36.4; O2SAT 95
[2024-03-11] MEDS: LACTATED RINGERS 1,000 ML 30 ML IV CONT (06:45)
--- NOTE | 2024-03-11 06:58 | WPDHPUPDATE1 ---
History and Physical Update Update Date/Time: 03/11/24 06:58 History and Physical has been reviewed, including an updated exam of the patient. There are NO changes in the patient's condition. Risks, benefits, and alternatives have been discussed and questions answered. Patient agrees to proceed with procedure.
--- NOTE | 2024-03-11 07:08 | WPDANESEPPF ---
Anes - Initial Pre Proc Eval Procedure: Operation Date: 03/11/24 07:30 Proposed Procedures p Direct Laryngoscopy with Biopsy of Right Vocal Cord - Elieser Rick MD Date/Time: 03/11/24 07:08 Surgeon: Elieser Rick MD Pre Op Diagnosis: Vocal Cord Nodule Patient Data Age: 73 Gender: F Height: 1.65 m Weight: 109 kg Allergies Allergy/AdvReac Type Severity Reaction Status Date / Time codeine Allergy Mild Shortness Verified 03/05/24 15:31 of breath quinapril Allergy Mild Nausea Verified 03/05/24 15:31 rosuvastatin Allergy Mild Gastrointestinal Verified 03/05/24 15:31 Upset simvastatin Allergy Mild Gastrointestinal Verified 03/05/24 15:31 Upset Home Medications Medication Instructions Recorded Confirmed Type atorvastatin 40 mg tablet 40 mg PO DAILY 06/22/21 03/05/24 History cholecalciferol (vitamin D3) 50 50 mcg PO DAILY 06/22/21 03/05/24 History mcg (2,000 unit) capsule triamterene 37.5 1 cap PO DAILY 06/22/21 03/05/24 History mg-hydrochlorothiazide 25 mg capsule metoprolol succinate 25 mg 25 mg PO BID 05/30/23 03/05/24 History tablet,extended release 24 hr amlodipine 5 mg tablet 5 mg PO DAILY 08/01/23 03/05/24 History losartan 50 mg tablet 50 mg PO BID 08/01/23 03/05/24 History esomeprazole magnesium 40 mg 40 mg PO QAM 03/05/24 03/05/24 History capsule,delayed release (Nexium) levothyroxine 125 mcg tablet 125 mcg PO QAM 03/05/24 03/05/24 History Patient hx anesthesia problems: none Family hx anesthesia problems: none Results Review: All pre-operative results and documents have been reviewed as part of the pre-operative evaluation. [facility] Past Medical History Medical History (Updated 02/21/24 @ 08:51 by Judy Layne) High cholesterol History of carcinoma in situ of cervix Hypertension, essential Thyroid disease Surgical History Surgical History (Updated 02/21/24 @ 09:00 by Judy Layne) History of arthroscopy of right knee History of hysterectomy 1978 History of knee replacement procedure of right knee History of tonsillectomy History of ventral hernia repair x2 and both with mesh. 2016 in [place] and 2009 at [facility]. Family History Family History (Updated 02/21/24 @ 08:57 by Judy Layne) Sibling Family history of malignant neoplasm Mother Carcinoma of colon Family history of malignant neoplasm of breast Hypertension Father Hypertension Peripheral vascular disease Sibling Ulcerative colitis Other Family history of allergic disorder Social History Social History Smoking packs per day: 2 Smoking cigarettes per day: 40.0 Years smoked: 35 Smoking pack-years: 70.00 Smoking status: Former smoker Tobacco type: cigarettes Smoking end date: 02/11/10 Alcohol intake: current Drinks per week: 5 Alcohol use details: Socially Substance use: never Substance use type: does not use Lack of Transportation: No Lack of Food: Never True Current Housing: I Have Housing Concerned About Future Housing: No Difficulty Paying Gas/Electric Bills: No Difficulty Paying for Meds: No Currently Unemployed: No Education: High School Diploma/GED Difficulty w/ Childcare or Family Care: No Living arrangements: with family Additional living arrangements comments: [facility]USB Spiritual care concerns: No Anes - Eval Final PreProcedure Day of Procedure 03/11/24 07:08 Patient weight: morbidly obese Heart: regular rate and rhythm Lungs: clear to auscultation Airway: Mallampati scale class III Neurological: alert and oriented Last oral intake: >/= 8 hours ASA classification: III Emergent: no Anesthetic plan: proceed Anesthesia type and monitoring: general ETT and standard monitoring Results Review: All pre-operative results and documents have been reviewed as part of the pre-operative evaluation. Informed Consent: The patient's anesth
[2024-03-11] MEDS: OXYMETAZOLINE HCL 0.05% NAS 15 ML BTL (*BKC) 1 SPRAY NASAL (07:47)
--- NOTE | 2024-03-11 08:04 | W.PM.PROC2 ---
Procedure Note - Detailed Date of Procedure 03/11/24 Pre-op Diagnosis Vocal Cord Nodule Post-op Diagnosis Same Procedure Performed Direct laryngosocpy with vocal fold biopsy Surgeon Elieser Rick MD Anesthesia General Indications vocal nodules/polyps Findings Right anterior 1/3 vocal fold nodule vs. lesion with some leukoplakia. Fully removed. Left vocal cyst on the superior surface of the vocal fold in the false fold region, also removed. Photos taken. Description of Procedure On the date of surgery, the patient was identified in the preoperative holding area. All questions answered, consent signed and verified and they agreed to proceed. They were then brought to the OR and placed under general endotracheal anesthesia with a 6.5 sized endotracheal tube. A shoulder roll was placed. Timeout was performed verifying the correct patient identity and procedure to be performed which they were. The patient was then draped in standard fashion for direct laryngoscopy with biopsy. The bed was rotated 90 degrees counter-clockwise and a dental guard was placed to protect the upper teeth. A laryngoscope was then advanced in the oral cavity and upper airway to visualize all subsites of the oral cavity, oropharynx, hypopharynx and larynx. The only lesions noted were on the larynx. The patient was then suspended from the mae stand. Under endoscopic visualization, bilateral laryngeal lesions were noted on the vocal folds. Using biopsy forceps, these lesions were removed with minimal damage to the healthy laryngeal mucosa. Minimal bleeding occurred and did not require significant intervention for hemostasis. With all specimen removed, the procedure was concluded. The laryngoscope was removed, the dental guard removed, and the oral cavity was examined showing no injury to lips, gums, teeth or tongue. Care of the patient was returned to anesthesia who extubated the patient and transferred to the PACU for recovery in stable condition without complication. Estimated Blood Loss 0 Drains No Packing No Pathology Yes (right and left vocal fold lesion) Complications No immediate complications Condition Stable Disposition PACU
[2024-03-11 08:05] VITALS: BP 123/70; PULSE 72; RESP 12; TEMP 36.6; O2SAT 100
[2024-03-11 08:20] VITALS: BP 116/58; PULSE 72; RESP 14; O2SAT 100
[2024-03-11 08:35] VITALS: BP 111/58; PULSE 71; RESP 16; O2SAT 92
[2024-03-11 08:40] VITALS: BP 143/79; PULSE 73
[2024-03-11 09:10] VITALS: BP 130/75; PULSE 68
== END 2024-03-11 09:15 | disposition home or self-care (01) ==
PROVIDERS: PCP Internal Medicine; Visit Provider Otolaryngology
PROC: 0CJS8ZZ Inspection of Larynx, Via Natural or Artificial Opening Endoscopic (ICD-10-PCS; CPT 31540; principal; 2024-03-11 07:30)
DX: C32.0 Malignant neoplasm of glottis (principal); J38.2 Nodules of vocal cords; I10 Essential (primary) hypertension; K21.9 Gastro-esophageal reflux disease without esophagitis; E07.9 Disorder of thyroid, unspecified; E78.00 Pure hypercholesterolemia, unspecified; E66.01 Morbid (severe) obesity due to excess calories; Z68.41 Body mass index [BMI] 40.0-44.9, adult; Z98.890 Other specified postprocedural states; Z87.891 Personal history of nicotine dependence; Z85.41 Personal history of malignant neoplasm of cervix uteri; Z80.3 Family history of malignant neoplasm of breast; Z80.0 Family history of malignant neoplasm of digestive organs
CPT/HCPCS: 31540; 88305; 88342; A9270; J0330; J1100; J2405; J2704; J3010; J7120

== ENCOUNTER 2024-04-04 09:23 | Outpatient (CLI) | payer MEDICARE, BC, SELFPAY ==
--- NOTE | ~2024-04-04 | CT_ITS ---
EXAMINATION: CT soft tissue neck w con DATE: 04/04/2024 10:48 INDICATION: Laryngeal cancer. TECHNIQUE: Computed tomography (CT) of the neck was performed with 75 mL Omnipaque-350 intravenous co ntrast. Automated exposure control and iterative reconstruction technique were employed. The dose-radha gth product was 671.33 mGy-cm. COMPARISON: None FINDINGS: There are scattered nodules in the lungs measuring up to 3 mm, likely benign. A calcified r ight lung nodule and calcified mediastinal lymph nodes are consistent with old granulomatous disease. The pharynx and larynx are normal. There are no pathologically enlarged lymph nodes. There is plaque in the proximal internal carotid arteries with less than 50% stenosis relative to normal distal latasha ry lumen diameters. There is an old blowout fracture of medial wall of right orbit. The mastoid air c ells are normal. There is severe cervical spondylosis. IMPRESSION: 1. No specific evidence of malignancy. Reviewed, dictated and finalized at location A.
== END 2024-04-04 09:24 | disposition home or self-care (01) ==
PROVIDERS: PCP Internal Medicine; Visit Provider Internal Medicine Hematology & Oncology
DX: C32.9 Malignant neoplasm of larynx, unspecified (principal)
CPT/HCPCS: 70491; Q9967

== ENCOUNTER 2024-05-14 13:17 | Outpatient (CLI) | payer MEDICARE, BC, SELFPAY ==
--- NOTE | ~2024-05-14 | MM_ITS ---
EXAMINATION: MM screening dru BI w kristi HISTORY: Screening TECHNIQUE: Craniocaudal and mediolateral oblique 3-D tomosynthesis images were obtained and synthetic 2-D images were generated. CAD analysis was submitted and interpreted. COMPARISON: Comparison to multiple prior studies sequentially, with oldest reviewed study dated 02/2021. BREAST PARENCHYMAL COMPOSITION: Not dense: There are scattered areas of fibroglandular density. FINDINGS: There is no evidence of suspicious mass, calcification, or architectural distortion to sugg est malignancy in either breast. There has been no suspicious interval change. IMPRESSION: 1. No mammographic evidence of malignancy. 2. Recommend routine screening mammography in one year. BI-RADS Category 1: Negative Reviewed, dictated and finalized at location B.
== END 2024-05-14 13:18 | disposition home or self-care (01) ==
PROVIDERS: PCP Internal Medicine; Visit Provider Internal Medicine
DX: Z12.31 Encounter for screening mammogram for malignant neoplasm of breast (principal)
CPT/HCPCS: 77063; 77067

== ENCOUNTER 2024-06-28 07:34 | Outpatient (CLI) | payer MEDICARE, SELFPAY ==
[2024-06-28 07:49] LABS: Add Urine Microscopic? YES; Appearance Urine Clear (Clear); Basophils Absolute Auto 0.02 K/mm3 (0.00-0.10); Basophils Percent Auto 0.3 % (0.0-1.0); Bilirubin Urine Negative (Negative); Blood Urine Negative (Negative); Color Urine Light Yellow (Yellow); Eosinophils Absolute Auto 0.14 K/mm3 (0.02-0.50); Eosinophils Percent Auto 2.2 % (1.0-6.0); Glucose Urine UA Negative (Negative); Hematocrit 43.2 % (35.0-42.0); Hemoglobin 13.9 g/dL (11.7-13.8); Immature Granulocyte Absolute 0.02 K/mm3 (0.00-0.00); Immature Granulocyte Percent A 0.3 % (0.0-0.0); Ketones Urine Negative (Negative); Leukocyte Esterase Ur Trace LEU/UL (Negative); Lymphocytes Absolute Auto 1.62 K/mm3 (1.10-4.50); Lymphocytes Percent Auto 25.3 % (18.0-42.0); Mean Corpuscular HGB Conc 32.2 g/dL (32-36); Mean Corpuscular Hemoglobin 28.6 pg (27.0-31.0); Mean Corpuscular Volume 88.9 fL (78.0-102.0); Monocytes Percent Auto 6.3 % (2.0-11.0); Neutrophils Percent Auto 65.6 % (50.0-70.0); Nitrate Urine Negative (Negative); Platelet Count Result 321 K/mm3 (150-420); Protein Urine Negative (Negative); Red Blood Count 4.86 M/mm3 (4.20-5.40); Red Cell Distribution Width 12.5 % (11.6-14.4); Specific Grav Ur 1.015 (1.010-1.020); Urobilinogen Urine 0.2 mg/dL (0.2-1.0); White Blood Count 6.4 K/mm3 (4.8-10.8)
[2024-06-28 07:54] LABS: RBC Urine None seen /hpf (0-2); Squamous Epithelial Cell Urine Few /hpf (Few); WBC Urine 0-3 /hpf (0-3)
[2024-06-28 07:55] LABS: Bacteria Urine Trace /hpf
[2024-06-28 08:00] LABS: Hemoglobin A1C 5.9 % (<5.7)
[2024-06-28 08:48] LABS: Alanine Aminotransferase 42 U/L (14-59); Alkaline Phosphatase 70 U/L (46-116); Anion Gap 7 mmol/L (4-12); Aspartate Amino Transferase 24 U/L (15-37); Bilirubin,Total 0.4 mg/dL (0.00-1.00); Blood Urea Nitrogen 16 mg/dL (7-18); Calcium 9.4 mg/dL (8.5-10.1); Carbon Dioxide 33 mmol/L (21-32); Chloride 100 mmol/L (98-108); Cholesterol 257 mg/dL (0-200); Creatine Kinase 120 U/L (26-192); Estimated Glomerular Filt Rate 59; Free T4 Free Thyroxine 1.01 ng/dL (0.76-1.46); Glucose 125 mg/dL (70-99); HDL Direct 42 mg/dL (40-60); LDL Cholesterol Calculated 172 mg/dL (<130); Osmolality Calculated 292 mOsm/kg (285-295); Potassium 4.4 mmol/L (3.5-5.1); Sodium 140 mmol/L (136-145); Thyroid Stimulating Hormone 0.52 uIU/mL (0.36-3.74); Total Protein 7.1 g/dL (6.4-8.2); Triglycerides 216 mg/dL (0-150)
== END 2024-06-28 07:35 | disposition home or self-care (01) ==
PROVIDERS: PCP Internal Medicine; Visit Provider Internal Medicine
DX: E03.4 Atrophy of thyroid (acquired) (principal); E11.65 Type 2 diabetes mellitus with hyperglycemia; E78.5 Hyperlipidemia, unspecified; N39.0 Urinary tract infection, site not specified
CPT/HCPCS: 36415; 80053; 80061; 81001; 82550; 83036; 84439; 84443; 84481; 85025

== ENCOUNTER 2024-07-30 07:38 | Outpatient (CLI) | payer MEDICARE, SELFPAY ==
[2024-07-30 07:56] LABS: Basophils Absolute Auto 0.03 K/mm3 (0.00-0.10); Basophils Percent Auto 0.4 % (0.0-1.0); Eosinophils Absolute Auto 0.11 K/mm3 (0.02-0.50); Eosinophils Percent Auto 1.6 % (1.0-6.0); Hematocrit 40.9 % (35.0-42.0); Hemoglobin 13.4 g/dL (11.7-13.8); Immature Granulocyte Absolute 0.03 K/mm3 (0.00-0.00); Immature Granulocyte Percent A 0.4 % (0.0-0.0); Lymphocytes Percent Auto 19.4 % (18.0-42.0); Mean Corpuscular HGB Conc 32.8 g/dL (32-36); Mean Corpuscular Hemoglobin 28.6 pg (27.0-31.0); Mean Corpuscular Volume 87.4 fL (78.0-102.0); Mean Platelet Volume 9.4 fl (9.2-11.8); Monocytes Absolute Auto 0.41 K/mm3 (0.10-0.90); Monocytes Percent Auto 6.1 % (2.0-11.0); Neutrophils Absolute Auto 4.81 K/mm3 (1.70-7.20); Neutrophils Percent Auto 72.1 % (50.0-70.0); Platelet Count Result 302 K/mm3 (150-420); Red Blood Count 4.68 M/mm3 (4.20-5.40); Red Cell Distribution Width 12.2 % (11.6-14.4); White Blood Count 6.7 K/mm3 (4.8-10.8)
[2024-07-30 08:58] LABS: Alanine Aminotransferase 36 U/L (14-59); Albumin Level 3.9 g/dL (3.4-5.0); Alkaline Phosphatase 73 U/L (46-116); Anion Gap 7 mmol/L (4-12); Bilirubin,Total 0.4 mg/dL (0.00-1.00); Blood Urea Nitrogen 21 mg/dL (7-18); Calcium 9.2 mg/dL (8.5-10.1); Carbon Dioxide 32 mmol/L (21-32); Chloride 102 mmol/L (98-108); Estimated Glomerular Filt Rate > 60; Glucose 114 mg/dL (70-99); Osmolality Calculated 296 mOsm/kg (285-295); Potassium 4.5 mmol/L (3.5-5.1); Sodium 141 mmol/L (136-145); Total Protein 7.1 g/dL (6.4-8.2)
[2024-07-30 09:26] LABS: Aspartate Amino Transferase 22 U/L (15-37)
== END 2024-07-30 07:39 | disposition home or self-care (01) ==
LOC: CHSLAB 07:41
PROVIDERS: PCP Internal Medicine; Visit Provider Internal Medicine Hematology & Oncology
DX: C32.9 Malignant neoplasm of larynx, unspecified (principal)
CPT/HCPCS: 36415; 80053; 85025

== ENCOUNTER 2024-08-09 08:17 | Outpatient (CLI) | payer MEDICARE, BC, SELFPAY ==
--- NOTE | ~2024-08-09 | CT_ITS ---
CT soft tissue neck chest w Ordering provider: Ari Acosta MD History: 74-year-old woman with a history of laryngeal cancer presents for follow-up imaging. Comparison: 04/04/2024. Technique: CT soft tissues neck was performed with contrast, followed by a CT examination of the ches t. The dose-length product was 1256.13 mGy-cm. Findings: LOWER HEAD: The visualized brain parenchyma, optic globes/orbits and mastoids are unremarkable. The visualized paranasal sinuses are well aerated. SALIVARY GLANDS: Symmetric. THYROID: Unremarkable. SUPRAHYOID DEEP SPACES: Unremarkable. CAROTID ARTERIES: Patent. JUGULAR VEINS: Patent. TONSILS: Unremarkable. ORAL CAVITY: Unremarkable. PHARYNX, LARYNX AND TRACHEA: Patent and normal. No prevertebral soft tissue swelling. SUPERFICIAL SOFT TISSUES: Normal. No pathologically enlarged or morphologically suspicious lymphadeno elmer detected. THORACIC INLET/VISUALIZED UPPER CHEST: Unremarkable. LUNGS: The lungs are clear. SKELETAL: Age appropriate degenerative changes. No lytic or blastic lesions identified IMPRESSION: 1. Unremarkable CT examination of the neck and chest, as detailed above. In Reviewed, dictated and finalized at location A. E BENDER
--- OUTSIDE RECORDS SUMMARY | 2024-08-16 19:12 | XMS_ITS | Encounter Summary ---
Author Organization [facility] Address [address] [place] [address] Phone Care Team Providers Care Therapist'S Assistant Name Role Phone Bobby Minor MD Primary Care Provider [phone] Reason for Referral * MRI/CAT/PET Scan (Routine) - Closed Specialty Diagnoses / Procedures Referred By Chris randall Referred To Contact Radiology Diagnoses Pulmonary nodule Procedures CT Chest WO Contrast Prabhjot Keenan MD [address] [facility] [address] [place] [address] Phone: tel: fax: [address] [phone] Referral ID Status Reason Start Date Expiration Date Visits Re quested Visits Authorized [id number] Closed 04/25/2023 05/24/2024 1 1 Encounter Details Date Type Department Care Team (Late st Contact Info) Description 04/25/2023 Orders Only [facility] Surgery [address] [facility] Advanced Medicine 8th [place] [address] [place] [address] Prabhjot Keenan MD [address] [facility] [address] [place] [address] Pulmonary nodule (Primary Dx) Social History Tobacco Use Types Packs/Day Years Used Date Smoking Tobacco: Former Cigarettes Q uit: 05/14/2012 Smokeless Tobacco: Never AUDIT-C Answer Date Recorded Q1: How often do you have a drink containing alc ohol? Monthly or less 01/13/2021 Q2: How many drinks containi ng alcohol do you have on a typical day when you are drinking? 1 or 2 01/13/2021 Q3: How often do you have si x or more drinks on one occasion? 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 Dictated by: Madhav Guzmán MD PHD The radiology attending physician has personally reviewed this study, and had reviewed and/or edited this written report and agrees with it. Electronically signed by: Indio Tong M.D. Narrative 05/12/2023 10:35 AM CDT EXAMINATION: CT CHEST WO CONTRAST HISTORY: Left lower lobe pulmonary nodule TECHNIQUE: ??Transaxial computed tomographic images of the chest were obtained without intravenous contrast according to the standard protocol. COMPARISON: CT chest without contrast 12/01/2021. FINDINGS: ?? Atrophic or absent thyroid. ??No discrete lymphadenopathy in the chest by noncontrasted examination. ??Malissa lymph nodes compatible with old granulomatous disease. ??Three-vessel coronary calcifications. ??Normal heart size. ??Great vessels normal in caliber by noncontrast examination. ??Small hiatal hernia. Several tiny bilateral pulmonary nodules are unchanged with the largest in the left lower lobe measuring 8 x 6 mm on series 3 image 110, dating back to 04/14/2021. ??No pneumothorax, pleural effusion, or focal pneumonic consolidation. ??Patent central airways. Imaged upper abdomen shows diffuse hepatic steatosis, old granulomatous disease in the spleen. ??Multilevel degenerative disc disease of the spine. ??No suspicious osseous lesions. Procedure Note Indio Tong MD - 05/12/2023 EXAMINATION: CT CHEST WO CONTRAST HISTORY: Left lower lobe pulmonary nodule TECHNIQUE: Transaxial computed tomographic images of the chest were obtained without intravenous contrast according to the standard protocol. COMPARISON: CT chest without contrast 12/01/2021. FINDINGS: Atrophic or absent thyroid. No discrete lymphadenopathy in the chest by noncontrasted examination. Malissa lymph nodes compatible with old granulomatous disease. Three-vessel coronary calcifications. Normal heart size. Great vessels normal in caliber by noncontrast examination. Small hiatal hernia. Several tiny bilateral pulmonary nodules are unchanged with the largest in the left lower lobe measuring 8 x 6 mm on series 3 image 110, dating back to 04/14/2021. No pneumothorax, pleural effusion, or focal pneumonic consolidation. Patent central airways. Imaged upper abdomen shows diffuse hepatic steatosis, old granulomatous disease in the spleen. Multilevel degenerative disc disease of the spine. No suspicious osseous lesions. IMPRESSION: Unchanged lateral tiny pulmonary nodules with the largest in the left lower lobe measuring 8 x 6 mm dating back to 04/14/2021. Dictated by: Madhav Guzmán MD PHD The radiology attending physician has personally reviewed this study, and had reviewed and/or edited this written report and agrees with it. Electronically signed by: Indio Tong M.D. Prabhjot Keenan MD IM CT PROCEDURES Final R esult documented in this encounter Visit Diagnoses Diagnosis Pulmonary nodule- Primary Other diseases of lung, not elsewhere classified Pulmonary nodule Other diseases of lung, not elsewhere classified documented in this encounter Care Teams Therapist'S Assistant Relationship Specialty Start Date End Date Bobby Minor MD [address] [place] [address] PCP - General Internal Medicine 12/25/20 documented as of this encounter
--- OUTSIDE RECORDS SUMMARY | 2024-08-16 19:12 | XMS_ITS | Encounter Summary ---
Author Organization [facility] Address [address] [place] [address] Care Team Providers Care Ranger Aide Name Role Phone Bobby Minor MD Primary Care Provider [phone] Reason for Referral * MRI/CAT/PET Scan (Routine) - Closed Specialty Diagnoses / Procedures Referred By Omarac t Referred To Contact Radiology Diagnoses Pulmonary nodule Procedures CT chest without contrast Irene Gardner NP Phone: tel: fax: [address] [phone] Referral ID Status Reason Start Date Expiration Date Visits Re quested Visits Authorized [id number] Closed 10/29/2021 05/14/2022 1 1 Reason for Visit * MRI/CAT/PET Scan (Routine) - Closed Specialty Diagnoses / Procedures Referred By Chris randall Referred To Contact Radiology Diagnoses Pulmonary nodule Procedures CT chest without contrast Irene Gardner NP Phone: tel: fax: [address] [phone] Referral ID Status Reason Start Date Expiration Date Visits Re quested Visits Authorized [id number] Closed 10/29/2021 05/14/2022 1 1 Encounter Details Date Type Department Care Team (Latest Contact Info) Description 12/01/2021 10:32 AM CDT - 12/01/2021 11:59 PM CDT Hospital Encounter [facility] [place] [address] Prabhjot Keenan MD [address] [facility] [place] [address] [place] [address] Irene Gardner NP [address] [facility] [address] [place] [address] Pulmonary nodule Discharge Disposition: Discharge to home or self care Social History Tobacco Use Types Packs/Day Years [...] on file 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 Gender Identity Not on file Sexual Orientation Not on file documented as of this encounter Medications at Time of Discharge atorvastatin (LIPITOR) 40 mg tablet 11/21/2020 cholecalciferol (VITAMIN D-3) 2000 unit capsule 1 capsule (2,000 Units total) levothyroxine (SYNTHROID) 112 mcg tablet 11/21/2020 metoprolol tartrate (LOPRESSOR) 25 mg immediate release tablet Take 1 tablet (25 mg total) by mouth 2 (two) times a day 04/07/2014 triamterene-hydro CHLOROthiazide 37.5-25 mg per tablet 11/21/2020 documented as of this encounter Discharge Disposition Disposition Code Departure Means Destination Discharge to home or self care documented in this encounter Plan of Treatment Not on file documented as of this encounter Procedures Procedure Name Priority Date/Time Associated Diagnosis Comments CT CHEST WO CONTRAST Schedule Routine, Read Routine (OP Routine) 12/01/2021 10:45 AM CDT Pulmonary nodule documented in this encounter Results * CT chest without contrast (12/01/2021 10:45 AM CDT) Anatomical Region Laterality Modality Body N/A Computed Tomogra phy 12/01/2021 1:43 PM CDT Impressions 12/01/2021 2:12 PM CDT Stable left lower lobe pulmonary nodule. Recommend follow up with repeat CT in 12 months. Dictated by: Julio C Carrillo MD ??PHD The radiology attending physician has personally reviewed this study, and had reviewed and/or edited this written report and agrees with it. Electronically signed by: Flaquito Portillo M.D. Narrative 12/01/2021 2:12 PM CDT EXAMINATION: ??Computed tomography of the chest without intravenous contrast HISTORY: Pulmonary nodule. TECHNIQUE: ??Transaxial computed tomographic images of the chest were obtained without intravenous contrast according to the standard protocol. COMPARISON: 04/14/2021 FINDINGS: ?? Stable 8 x 5 mm pulmonary nodule in the anterior left lung base (table position 402.2). Multiple tiny bilateral upper lobe nodules are also stable. No pulmonary edema, pleural effusion, or pneumothorax. Calcified mediastinal and hilar lymph nodes, consistent with old granulomatous disease. No axillary, supraclavicular, mediastinal, or hilar lymphadenopathy. Heart size is normal. No pericardial effusion. Atherosclerotic calcification of the coronary arteries and thoracic aorta. Old granulomatous disease in the spleen. The visualized upper abdomen is otherwise normal. Procedure Note Flaquito Portillo MD - 12/01/2021 EXAMINATION: Computed tomography of the chest without intravenous contrast HISTORY: Pulmonary nodule. TECHNIQUE: Transaxial computed tomographic images of the chest were obtained without intravenous contrast according to the standard protocol. COMPARISON: 04/14/2021 FINDINGS: Stable 8 x 5 mm pulmonary nodule in the anterior left lung base (table position 402.2). Multiple tiny bilateral upper lobe nodules are also stable. No pulmonary edema, pleural effusion, or pneumothorax. Calcified mediastinal and hilar lymph nodes, consistent with old granulomatous disease. No axillary, supraclavicular, mediastinal, or hilar lymphadenopathy. Heart size is normal. No pericardial effusion. Atherosclerotic calcification of the coronary arteries and thoracic aorta. Old granulomatous disease in the spleen. The visualized upper abdomen is otherwise normal. IMPRESSION: Stable left lower lobe pulmonary nodule. Recommend follow up with repeat CT in 12 months. Dictated by: Julio C Carrillo MD PHD The radiology attending physician has personally reviewed this study, and had reviewed and/or edited this written report and agrees with it. Electronically signed by: Flaquito Portillo M.D. Irene Gardner BIG DATA HADOOP DEVELOPER IMG CT PROCEDURES Final Result documented in this encounter Visit Diagnoses Diagnosis Pulmonary nodule Other diseases of lung, not elsewhere classified documented in this encounter Care Teams Ranger Aide Relationship Specialty Start Date End Date Bobby Minor MD [address] [place], [place] [id number] PCP - General Internal Medicine 12/25/20 documented as of this encounter
--- OUTSIDE RECORDS SUMMARY | 2024-08-16 19:12 | XMS_ITS | Encounter Summary ---
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 - 07/14/2010 12:02 PM [facility] Addison Squires MD [address] [facility] [address] [place] [address] Closed fracture of orbital floor (CMS/HCC) (HCC); Pain in or around eye; Other diseases of nasal cavity and sinuses; Type 2 or unspecified type diabetes mellitus; Hypothyroidism; Fall; Unspecified place of occurrence Social History Tobacco Use Types Packs/Day Years Used Date Smoking Tobacco: Never Assessed Comments Unknown Sex and Gender Information Value Date Recorded Sex Assigned at Not on file Legal Sex Female 3:22 AM [facility] Gender Identity Not on file Sexual Orientation Not on file documented as of this encounter Plan of Treatment Not on file documented as of this encounter Visit Diagnoses Diagnosis Closed fracture of orbital floor (CMS/HCC) (HCC) Pain in or around eye Other diseases of nasal cavity and sinuses Type 2 or unspecified type diabetes mellitus Hypothyroidism Unspecified hypothyroidism Fall Unspecified fall Unspecified place of occurrence documented in this encounter
--- OUTSIDE RECORDS SUMMARY | 2024-08-16 19:12 | XMS_ITS | Encounter Summary ---
Author Organization [facility] Address [address] [facility] [address] [place] [address] Phone Care Team Providers Care Boat Mechanic Name Role Phone Bobby Minor MD Primary Care Provider [phone] Reason for Referral * MRI/CAT/PET Scan (Routine) - Canceled Specialty Diagnoses / Procedures Referred By Chris randall Referred To Contact Radiology Diagnoses Pulmonary nodule Procedures CT chest without contrast Prabhjot Keenan MD Phone: tel: fax: [address] [address] Referral ID Status Reason Start Date Expiration Date V isits Requested Visits Authorized [id number] Canceled 03/30/2021 02/12/2022 1 1 Reason for Visit * Consultation (Routine) - Closed Specialty Diagnoses / Procedures Referred By Contact Referred To Contact Cardiothoracic Surgery Diagnoses Abnormal CT lung screening Bobby Minor MD [address] [place] [address] Phone: tel: fax: Prabhjot Keenan MD [address] [facility] [address] [place] [address] Phone: tel:[phone] fax:[phone] Referral ID Status Reason Start Date Expiration Date V isits Requested Visits Authorized [id number] Closed Specialty Services Required 12/25/2020 01/24/2022 99 99 Encounter Details Date Type Department Care Team (Late st Contact Info) Description 01/13/2021 1:15 PM CDT Office Visit [facility] Surgery [address] [facility] 8th [place] [address] [place] [address] Prabhjot Keenan MD [address] [place] [address] Pulmonary nodule (Primary Dx); Abnormal CT lung screening Social History Tobacco Use Types Packs/Day Years [...] on file 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 Gender Identity Not on file Sexual Orientation Not on file documented as of this encounter Last Filed Vital Signs Vital Sign Reading Time Taken Comments Blood Pressure 156/89 01/13/2021 12:35 PM CDT Pulse 64 01/13/2021 12:35 PM CDT Temperature 36.6 ??C (97.8 ??F) 01/13/2021 12:35 PM C DT Respiratory Rate 20 01/13/2021 12:35 PM CDT Oxygen Saturation 96% 01/13/2021 12:35 PM CDT Inhaled Oxygen Concentration - - Weight 93 kg (205 lb) 01/13/2021 12:35 PM CDT Height 162.6 cm (5' 4 ) 01/13/2021 12:35 PM CDT Body Mass Index 35.19 01/13/2021 12:35 PM CDT documented in this encounter Progress Notes * Irene Gardner, TEACHER OF THE EMOTIONALLY DISTURBED - 01/13/2021 1:15 PM CDT [facility] Cardiothoracic Surgery New Patient Consultation / Evaluation REASON FOR CONSULTATION: Pulmonary nodule REFERRING PROVIDER: Bobby Minor HISTORY OF PRESENT ILLNESS: The patient is a 70 y.o. female presenting today at the request of Bobby Minor MD for evaluation of a recent lung screening CT scan of the chest. She has a remote history of cervical cancer and has a remote history of smoking. On December 18, 2020, she had a lung screening CT scan of the chest performed. Imaging noted evidence of granulomatous inflammation as well as anoncalcified left lower lobe pulmonary nodule measuring 6 mm. She was also noted to have occlusion of the subsegmental right lower lobe bronchus. She is referred here today for further evaluation anddiscussion. MEDICAL CONDITIONS: Patient Active Problem List Diagnosis ??? Fracture of facial bone (CMS/HCC) ??? Closed fracture of orbital floor (CMS/HCC) ??? Pulmonary nodule PAST MEDICAL HISTORY: She has a past medical history of Atrophy of thyroid, Cervical cancer (CMS/HCC), Colon polyps, Essential hypertension, Hypothyroidism, Intrinsic (allergic) eczema, Low back pain, Mixed hyperlipidemia, Tinea unguium, Type 2 diabetes mellitus (CMS/HCC), and Vitamin deficiency, unspecified. PAST SURGICAL HISTORY: She has a past surgical history that includes Colonoscopy; Umbilical hernia repair (2014); Tonsillectomy and adenoidectomy; and Knee arthroscopy (Right, 06/26/2013). MEDICATIONS: She has a current medication list which includes the following prescription(s): atorvastatin, cholecalciferol, levothyroxine, metoprolol tartrate, and triamterene-hydrochlorothiazide. ALLERGIES: She is allergic to codeine. FAMILY HISTORY: Her family history includes Breast cancer in her mother; Colon cancer in her mother; Peripheral vascular disease in her father; Ulcerative colitis in her sister. SOCIAL HISTORY: She reports that she quit smoking about 8 years ago. Her smoking use included cigarettes. She has never used smokeless tobacco. She reports that she does not use drugs. No history on file for alcoholuse. REVIEW OF SYSTEMS: A comprehensive review of systems was completed by the patient; and reviewed, signed, and scanned into the chart. PHYSICAL EXAMINATION: Ht: 162.6 cm (5' 4 ) Wt: 93 kg (205 lb) BMI: Body mass index is 35.19 kg/m??. BP 156/89 Pulse 64 Temp 36.6 ??C (97.8 ??F) (Temporal) Resp 20 Ht 162.6 cm (5' 4 ) Wt 93 kg (205 lb) SpO2 96% BMI 35.19 kg/m?? Physical Exam Vitals and nursing note reviewed. Constitutional: Appearance: Normal appearance. She is obese. HENT: Head: Normocephalic and atraumatic. Right Ear: External ear normal. Left Ear: External ear normal. Nose: Nose normal. Mouth/Throat: Mouth: Mucous membranes are moist. Pharynx: Oropharynx is clear. Eyes: Conjunctiva/sclera: Conjunctivae normal. Pupils: Pupils are equal, round, and reactive to light. Cardiovascular: Rate and Rhythm: Normal rate and regular rhythm. Pulses: Normal pulses. Heart sounds: Normal heart sounds. Pulmonary: Effort: Pulmonary effort is normal. Breath sounds: Normal breath sounds. Abdominal: General: Bowel sounds are normal. Palpations: Abdomen is soft. Musculoskeletal: General: Normal range of motion. Cervical back: Normal range of motion and neck supple. Skin: General: Skin is warm and dry. Capillary Refill: Capillary refill takes less than 2 seconds. Neurological: General: No focal deficit present. Mental Status: She is alert. Mental status is at baseline. She is disoriented. Psychiatric: Mood and Affect: Mood normal. Behavior: Behavior normal. Thought Content: Thought content normal. Judgment: Judgment normal. RESULTS: 1.) Lung screening CT scan of the chest performed at [facility] dated 12/18/2020- - calcified right upper lobe granuloma. - calcified mediastinal granulomata. - 6 mm left lower lobe pulmonary nodule, unchanged. - scattered linear lingular atelectasis. - occlusion of a subsegmental right lower lobe bronchus for about 5 mm of its course, without postobstructive atelectasis. - small left adrenal adenoma. - mild to moderate thoracic spondylosis without osteoblastic or osteolytic lesions identified. ASSESSMENT AND PLAN: Please see Dr. Keenan's initial consultation letter for additional details. The patient is a 70 [address] with CT evidence of granulomatous disease with some calcified nodules. She also has a 6 mm left lower lobe lateral sulcus pulmonary nodule, unchanged. This is thought to be a noncalcified granuloma. There was CT evidence of occlusion of a subsegmental right lower lobe bronchus for about 5 mm of its course. This is indeterminate. According to the lung screening guidelines, recommendations for repeat non contrast CT imaging of the chest in 3 months. We will accommodate those arrangements. FADUMO Garcia MD Senior Analyst Developer completed using [employer] Direct speaking software, therefore, fuel cell builder variances may occur. documented in this encounter Plan of Treatment Not on file documented as of this encounter Results * CT chest without contrast (04/14/2021 12:30 PM CDT) Anatomical Region Laterality Modality Body N/A Computed Tomogra phy 04/14/2021 12:5 8 PM CDT Impressions 04/14/2021 12:58 PM CDT Stable left lower lobe index 6 mm pulmonary nodule with multiple bilateral, peripherally based/subpleural, pulmonary nodules measuring 3 mm and below. Recommend follow-up CT chest in 6-12 months to document stability given patient's remote history of malignancy and tobacco use. Electronically signed by: Tyshawn Mcgowan MD Narrative 04/14/2021 12:58 PM CDT EXAMINATION: ??Computed tomography of the chest without intravenous contrast HISTORY: 70-year-old female with remote history of cervical cancer presenting for follow-up evaluation of left lower lobe 6 mm pulmonary nodule TECHNIQUE: ??Transaxial computed tomographic images of the chest were obtained without intravenous contrast according to the standard protocol. COMPARISON: Outside reference CT chest without contrast from [facility] dated 12/18/2020 FINDINGS: ?? A left-sided aorta is present. The aorta and main pulmonary artery normal in course and caliber. Atherosclerotic calcification of the aorta and its major branching vessels is noted. No axillary, supraclavicular, mediastinal, or hilar lymphadenopathy is identified. Calcified mediastinal and hilar lymph nodes are consistent with prior granulomatous disease. The imaged thyroid attenuates normally. The heart size is normal. No pericardial effusion is present. Three-vessel coronary artery disease is identified. No confluent consolidation, pleural effusion, or pneumothorax is identified. The trachea is patent without endobronchial lesion. Several bilateral pulmonary nodules are identified as follows: -Stable index pulmonary nodule in the anterior left lung base measuring 6-7 mm (series 3 image 110, series 4 image 50) -Stable subpleural/peripherally based pulmonary nodules measuring 3 mm and below in the left upper lobe (series 3 image 22, 29, 33). -Stable perifissural 2 mm nodule/lymph node along the oblique fissure (series 3 image 22). Stable 5 mm partially calcified granuloma of the right upper lobe (series 3 image 39). -Stable sub-3 mm groundglass nodules in the peripherally based right upper lobe (series 3 image 40). Calcified granulomas are seen throughout the spleen. Otherwise, the imaged upper abdominal viscera are within normal limits. The soft tissues are normal. No lytic or blastic lesions are identified. Degenerative changes are seen throughout the spine. Procedure Note Tyshawn Mcgowan MD - 04/14/2021 EXAMINATION: Computed tomography of the chest without intravenous contrast HISTORY: 70-year-old female with remote history of cervical cancer presenting for follow-up evaluation of left lower lobe 6 mm pulmonary nodule TECHNIQUE: Transaxial computed tomographic images of the chest were obtained without intravenous contrast according to the standard protocol. COMPARISON: Outside reference CT chest without contrast from [facility] dated 12/18/2020 FINDINGS: A left-sided aorta is present. The aorta and main pulmonary artery normal in course and caliber. Atherosclerotic calcification of the aorta and its major branching vessels is noted. No axillary, supraclavicular, mediastinal, or hilar lymphadenopathy is identified. Calcified mediastinal and hilar lymph nodes are consistent with prior granulomatous disease. The imaged thyroid attenuates normally. The heart size is normal. No pericardial effusion is present. Three-vessel coronary artery disease is identified. No confluent consolidation, pleural effusion, or pneumothorax is identified. The trachea is patent without endobronchial lesion. Several bilateral pulmonary nodules are identified as follows: -Stable index pulmonary nodule in the anterior left lung base measuring 6-7 mm (series 3 image 110, series 4 image 50) -Stable subpleural/peripherally based pulmonary nodules measuring 3 mm and below in the left upper lobe (series 3 image 22, 29, 33). -Stable perifissural 2 mm nodule/lymph node along the oblique fissure (series 3 image 22). Stable 5 mm partially calcified granuloma of the right upper lobe (series 3 image 39). -Stable sub-3 mm groundglass nodules in the peripherally based right upper lobe (series 3 image 40). Calcified granulomas are seen throughout the spleen. Otherwise, the imaged upper abdominal viscera are within normal limits. The soft tissues are normal. No lytic or blastic lesions are identified. Degenerative changes are seen throughout the spine. IMPRESSION: Stable left lower lobe index 6 mm pulmonary nodule with multiple bilateral, peripherally based/subpleural, pulmonary nodules measuring 3 mm and below. Recommend follow-up CT chest in 6-12 months to document stability given patient's remote history of malignancy and tobacco use. Electronically signed by: Tyshawn Mcgowan MD Prabhjot Keenan MD IMG CT PROCEDURES Final R esult documented in this encounter Visit Diagnoses Diagnosis Pulmonary nodule- Primary Other diseases of lung, not elsewhere classified Abnormal CT lung screening Nonspecific (abnormal) findings on radiological and other examination of other intrathoracic organs Pulmonary nodule Other diseases of lung, not elsewhere classified documented in this encounter Historical Medications * This list may reflect changes made after this encounter. cholecalciferol (VITAMIN D-3) 2000 unit capsule 1 capsule (2,000 Units total) triamterene-hydro CHLOROthiazide 37.5-25 mg per tablet 11/21/2020 metoprolol tartrate (LOPRESSOR) 25 mg immediate release tablet Take 1 tablet (25 mg total) by mouth 2 (two) times a day 04/07/2014 levothyroxine (SYNTHROID) 112 mcg tablet 11/21/2020 atorvastatin (LIPITOR) 40 mg tablet 11/21/2020 added in this encounter Orders Outpatient Referral Count Last Ordered Date Fir st Ordered Date AMB REFERRAL TO CARDIOTHORACIC SURGERY 1 documented in this encounter Care Teams Boat Mechanic Relationship Specialty Start Date End Date Bobby Minor MD [address] [place] [address] PCP - General Internal Medicine 12/25/20 documented as of this encounter
--- OUTSIDE RECORDS SUMMARY | 2024-08-16 19:12 | XMS_ITS | Encounter Summary ---
Author Organization [facility] Address [address] [place] [address] Phone Care Team Providers Care Galley Stripper Name Role Phone Bobby Minor MD Primary Care Provider [phone] Reason for Referral * MRI/CAT/PET Scan (Routine) - Closed Specialty Diagnoses / Procedures Referred By Chris randall Referred To Contact Radiology Diagnoses Pulmonary nodule Procedures CT chest without contrast Irene Gardner NP [address] [facility] [place] [address] [place] [address] Phone: tel: fax: [address] [address] Referral ID Status Reason Start Date Expiration Date Visits Re quested Visits Authorized [id number] Closed 05/12/2023 06/10/2024 1 1 Encounter Details Date Type Department Care Team (Late st Contact Info) Description 05/12/2023 10:00 AM CDT Office Visit [facility] Surgery [address] [facility] 8th [place] [address] [place] [address] Irene Gardner NP [address] [facility] [place] [address] [place] [address] Pulmonary nodule (Primary Dx) Social History Tobacco [...] on file 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 Gender Identity Not on file Sexual Orientation Not on file documented as of this encounter Last Filed Vital Signs Vital Sign Reading Time Taken Comments Blood Pressure 134/85 05/12/2023 9:24 AM CDT Pulse 60 05/12/2023 9:24 AM CDT Temperature 36.7 ??C (98.1 ??F) 05/12/2023 9:24 AM CD T Respiratory Rate 18 05/12/2023 9:24 AM CDT Oxygen Saturation 97% 05/12/2023 9:24 AM CDT Inhaled Oxygen Concentration - - Weight 108 kg (238 lb 3.2 oz) 05/12/2023 9:24 AM CDT Height 163.8 cm (5' 4.5 ) 05/12/2023 9:24 AM CDT Body Mass Index 40.26 05/12/2023 9:24 AM CDT documented in this encounter Progress Notes * Irene Gardner, AUTOMATION MANAGER - 05/12/2023 10:00 AM CDT May 12, 2023 I was pleased to see Ms. Neftaly Hatch in follow-up on May 12, 2023. I saw independently today. I have reviewed her past medical, social, and family history, documented in her electronic medicalrecords. She presents today to follow-up on some indeterminate pulmonary nodules. She is a former cigarette smoker with a history of skin cancer and colon cancer. She presents today doing reasonably well overall. She denies recent illnesses. She denies recent fevers, chills, night sweats, cough, hemoptysis, chest pain, or shortness of breath. Appetite is good. Her weight is stable. She had a non contrast CT scan of the chest performed for today's visit. I personally reviewed those images with the patient. I have included the final radiology summary below. COMPARISON: CT chest without contrast 12/01/2021. FINDINGS: Atrophic or absent thyroid. No discrete lymphadenopathy in the chest by non contrasted examination. Malissa lymph nodes compatible with old granulomatous disease. Three-vessel coronary calcifications. Normal heart size. Great vessels normal in caliber by non contrast examination. Small hiatal hernia. Several tiny bilateral [...] x 6 mm dating back to 04/14/2021. We will see her back in 1 year with a non contrast CT scan of the chest. I will keep everyone apprised of those findings as well as her progress and plan of care. Certainly, if you have any questionsor concerns, you may contact my office. Otherwise, thank you for allowing me the opportunity of participating in the care of your patient. Thank you very much. Yours sincerely, Irene Gardner, ANP- Nurse practitioner for Dr. Du Keenan Mental Hygiene Consultant completed using [facility] urSelf Direct speaking software, therefore, insert molding operator variances may occur. documented in this encounter Plan of Treatment Not on file documented as of this encounter Results * CT chest without contrast (05/31/2024 8:16 AM CDT) Anatomical Region Laterality Modality Body N/A Computed Tomogra phy 05/31/2024 8:58 AM CDT Impressions 05/31/2024 8:58 AM CDT No significant interval change of bilateral pulmonary nodules, the largest of which measures up to 7 mm in the left lower lobe and which has been stable dating back to April 2021. Electronically signed by: Tu Cristobal M.D. Narrative 05/31/2024 8:58 AM CDT EXAMINATION: ??Computed tomography of the chest without intravenous contrast HISTORY: 73-year-old female with known lung nodule, follow-up. TECHNIQUE: ??Transaxial computed tomographic images of the chest were obtained without intravenous contrast according to the standard protocol. COMPARISON: CT of the chest without contrast dated 05/12/2023. FINDINGS: ?? Unchanged mild atelectasis/scarring in the lingula and left lower lobe. Unchanged 5 mm right lower lobe subpleural pulmonary nodule (series 3 image 117). ??Unchanged 7 mm left lower lobe pulmonary nodule (series 3 image 122). ??Additional sub-5 mm pulmonary nodules throughout both lungs are not significantly changed compared to prior examination. ??No pneumonia, pulmonary edema, pleural effusion, or pneumothorax. ??Atrophic thyroid gland. ??No supraclavicular, axillary, mediastinal, or hilar lymphadenopathy. ??There is old granulomatous disease. Normal heart size. ??No pericardial effusion or pericardial thickening. ??Multivessel calcified atherosclerosis of the coronary arteries. ??Mild calcified atherosclerosis of the thoracic aorta and its major branches. Limited examination of the upper abdomen demonstrates old granulomatous disease in the spleen. ??Mild thickening of the left adrenal gland without discrete nodule. ??Small hiatal hernia. Multilevel degenerative changes in the thoracic spine. ??No suspicious lytic or blastic osseous lesion. Procedure Note Tu Cristobal MD - 05/31/2024 EXAMINATION: Computed tomography of the chest without intravenous contrast HISTORY: 73-year-old female with known lung nodule, follow-up. TECHNIQUE: Transaxial computed tomographic images of the chest were obtained without intravenous contrast according to the standard protocol. COMPARISON: CT of the chest without contrast dated 05/12/2023. FINDINGS: Unchanged mild atelectasis/scarring in the lingula and left lower lobe. Unchanged 5 mm right lower lobe subpleural pulmonary nodule (series 3 image 117). Unchanged 7 mm left lower lobe pulmonary nodule (series 3 image 122). Additional sub-5 mm pulmonary nodules throughout both lungs are not significantly changed compared to prior examination. No pneumonia, pulmonary edema, pleural effusion, or pneumothorax. Atrophic thyroid gland. No supraclavicular, axillary, mediastinal, or hilar lymphadenopathy. There is old granulomatous disease. Normal heart size. No pericardial effusion or pericardial thickening. Multivessel calcified atherosclerosis of the coronary arteries. Mild calcified atherosclerosis of the thoracic aorta and its major branches. Limited examination of the upper abdomen demonstrates old granulomatous disease in the spleen. Mild thickening of the left adrenal gland without discrete nodule. Small hiatal hernia. Multilevel degenerative changes in the thoracic spine. No suspicious lytic or blastic osseous lesion. IMPRESSION: No significant interval change of bilateral pulmonary nodules, the largest of which measures up to 7 mm in the left lower lobe and which has been stable dating back to April 2021. Electronically signed by: Tu Cristobal M.D. Irene Gardner AUTOMATION MANAGER IMG CT PROCEDURES Final Result documented in this encounter Visit Diagnoses Diagnosis Pulmonary nodule- Primary Other diseases of lung, not elsewhere classified Pulmonary nodule Other diseases of lung, not elsewhere classified documented in this encounter Care Teams Galley Stripper Relationship Specialty Start Date End Date Bobby Minor MD [address] [place] [address] PCP - General Internal Medicine 12/25/20 documented as of this encounter
--- OUTSIDE RECORDS SUMMARY | 2024-08-16 19:12 | XMS_ITS | Clinical Summary ---
Author Organization [facility] Address [address] [place] [address] Care Team Providers Care Merchandising Stock Associate Name Role Phone Bobby Minor MD Primary Care Provider [phone] Bobby Minor MD Unavailable [phone] Allergies Active Allergy Reactions Criticality Noted Date Comments Codeine Medications atorvastatin (LIPITOR) 40 mg tablet 1 Active levothyroxine (SYNTHROID) 112 mcg tablet 1 Active metoprolol tartrate (LOPRESSOR) 25 mg immediate release tablet Take 1 tablet (25 mg total) by mouth 2 (two) times a day 4 Active triamterene-hyd roCHLOROthiazid e 37.5-25 mg per tablet 1 Active cholecalciferol (VITAMIN D-3) 2000 unit capsule 1 capsule (2,000 Units total) Active amLODIPine (NORVASC) 5 mg tablet Take 1 tablet (5 mg total) by mouth daily Active esomeprazole DR (NexIUM) 20 mg capsule Take 2 capsules (40 mg total) by mouth daily before breakfast Active losartan (COZAAR) 50 mg tablet Take 1 tablet (50 mg total) by mouth daily Active Active Problems Problem Noted Date Diagnosed Date Pulmonary nodule 01/13/2021 History of skin cancer 01/13/2021 History of cervical cancer 01/13/2021 Fracture of facial bone 07/21/2010 Closed fracture of orbital floor (CMS/HCC) 07/21 Encounters Date Type Department Care Team Description 05/31/2024 10:00 AM CDT Office Visit [facility] Surgery [address] [facility] Floor [address] [place] [address] Prabhjot Keenan MD Pulmonary nodule (Primary Dx) 05/31/2024 7:50 AM CDT - 05/31/2024 11:59 PM CDT Hospital Encounter [facility] [place] [address] [facility] [address] [place] [address] Pulmonary nodule Discharge Disposition: Discharge to home or self care from Last 3 Months Immunizations Name Administration Dates Next Due Influenza, Quadrivalent, Split, Intramuscular Influenza, Quadrivalent, Spl it, Preservative Free, Intramuscular 07/20/2018 Influenza, Trivalent, IM (MDV) 05/01/2013 Moderna SARS-CoV-2 Monovalent Vaccination (12+ Y RS) 10/24/2020,09/26/2020 Pneumococcal Conjugate PCV 13 01/13/2015 Pneumococcal Polysaccharide PPV23 09/22/2014 ZOSTER LIVE 09/05/2012 ZOSTER Recombinant 05/02/2019 Surgical History Surgery Date Site/Laterality Comments COLONOSCOPY UMBILICAL HERNIA REPAIR 08/14/2014 - 08/13/2015 TONSILLECTOMY AND ADENOIDECTOMY KNEE ARTHROSCOPY 06/26/2013 Right Medical History Medical History Date Comments Atrophy of thyroid Type 2 diabetes mellitus (HCC) Mixed hyperlipidemia Essential hypertension Colon polyps Intrinsic (allergic) eczema Low back pain Vitamin deficiency, unspecified Tinea unguium Cervical cancer (CMS/HCC) (HCC) Hypothyroidism Family History Medical History Relation Name Comments Peripheral vascular disease Father Breast cancer Mother Colon cancer Mother Ulcerative colitis Sister Relation Name Status Comments Father Mother Sister Social History Tobacco Use Types Packs/Day Years [...] on file 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 Gender Identity Not on file Sexual Orientation Not on file Obstetrics History Last Filed Vital Signs Vital Sign Reading Time Taken Comments Blood Pressure 137/83 05/31/2024 9:33 AM CDT Pulse 72 05/31/2024 9:33 AM CDT Temperature 36.4 ??C (97.5 ??F) 05/31/2024 9:33 AM CD T Respiratory Rate 18 05/31/2024 9:33 AM CDT Oxygen Saturation 98% 05/31/2024 9:33 AM CDT Inhaled Oxygen Concentration - - Weight 109.4 kg (241 lb 3.2 oz) 05/31/2024 9:33 AM CDT Height 162.6 cm (5' 4 ) 05/31/2024 9:33 AM CDT Body Mass Index 41.4 05/31/2024 9:33 AM CDT Plan of Treatment Health Maintenance Due Date Last Done Comments Breast Cancer Screening-Mammogram 1952 Colon Cancer Screening-Colonoscopy 1952 Depression Screening 1952 Fall Risk Assessment 1952 Hepatitis C Screening 1952 Osteoporosis Screening-Bone Density Scan 1952 DTaP/Tdap/Td Vaccine (1 - Tdap) 1963 Hepatitis B Screening 1970 Well Visit 65+ 2017 Zoster Vaccine (3 of 3) 06/27/2019 05/02/2019, 09/05 Pneumococcal vaccine 65+ (3 of 3 - PPSV23 or PCV20) 01/14/2020 01/13/2015, 09/22/2014 Covid-19 Vaccine (3 - season) 2024, 09/26/2020 Influenza Vaccine (#1) 2024 8, 04/07/2017, 05/01/2013 Procedures Procedure Name Priority Date/Time Associated Diagnosis Comments CT CHEST WO CONTRAST Schedule Routine, Read Routine (OP Routine) 05/31/2024 8:16 AM CDT Pulmonary nodule from Last 3 Months Results * CT chest without contrast (05/31/2024 [...] signed by: Tu Cristobal M.D. Irene Gardner NP IMG CT PROCEDURES Final Result from Last 3 Months Insurance MEDICARE [facility] Address: [address] [place] [address] MEDICARE [facility] BLUE ACCESS ME [facility] MEDICARE Care Teams Merchandising Stock Associate Relationship Specialty Start Date End Date Bobby Minor MD [address] [place] [address] PCP - General Internal Medicine 12/25/20 Bobby Minor MD [address] [place] [address] Referring Physician Internal Medicine 05/31/24
--- OUTSIDE RECORDS SUMMARY | 2024-08-16 19:12 | XMS_ITS | Summary of Care ---
Author Organization [facility] Address [address] [place] [address]- Care Team Providers Care Director Of Admissions Name Role Phone Unassigned, PCP - Unable to obtain Primary Care Physician Unavailable Encounter [facility] [id number] Date(s): 08/20/23 - 08/20/23 [facility] [address] [place], [place] [address] Encounter Diagnosis Other specified symptoms and signs involving the circulatory and respiratory systems(Discharge Diagnosis) - 08/20/23 Contact with and (suspected) exposure to COVID-19(Discharge Diagnosis) - 08/20/23 Influenza A(Discharge Diagnosis) - 08/20/23 Attending Physician: Ted Bai PA-C Admitting Physician: HELIO ARAGON Allergies, Adverse Reactions, Alerts Substance Reaction Severity Status codeine Tongue swelling Moderate Active Assessment and Plan Extracted from: Title:[facility] Urgent Care Note Author:Ted Bai PA-C Date:08/20/23 1.??Influenza A??(Influenza due to other identified influenza virus with other respiratory manifestations)(J10.1) Findings were reviewed and treatment options were discussed with the patient.?? I have sent in Tamiflu for her. ??I instructed continue with adequate rest, hydration and food intake. ??I discussed current isolation guidelines per the CDC. ??I discussed worrisome signs/symptoms when to seek emergent care. ??She stated she understood. ??She is welcome to follow-up as needed. Ordered: oseltamivir, 75 mg =, 1 cap(s), PO, 2xDaily, X 5 day(s), # 10 cap(s), 0 Refill(s), Pharmacy: [facility]/pharmacy #[id number], 1 cap(s) PO 2xDaily,x5 day(s), 1, 162.56, cm, 08/20/23 10:54:00 EST, Height cm, 112.491, kg, 08/20/23 10:54:00 EST, Weight, Actual kg ?? Contact with and (suspected) exposure to COVID-19??(Contact with and (suspected) exposure to COVID-19)(Z20.822) ?? Other specified symptoms and signs involving the circulatory and respiratory systems??(Other specified symptoms and signs involving the circulatory and respiratory systems)(R09.89) ?? Medications amlodipine 5 mg oral tablet 0 Refill(s), 08/20/23 10:56:00 AM EST, 1 Start Date: 08/20/23 Status: Ordered levothyroxine 1xDaily, 0 Refill(s), 08/20/23 10:56:00 AM EST, 1 Start Date: 08/20/23 Status: Ordered losartan 50 mg oral tablet 0 Refill(s), 08/20/23 10:56:00 AM EST, 1 Start Date: 08/20/23 Status: Ordered metoprolol tartrate mg, PO, 2xDaily, tab(s), 0 Refill(s), 08/20/23 10:56:00 AM EST, 1 Start Date: 08/20/23 Status: Ordered Tamiflu 75 mg oral capsule 75 mg =, 1 cap(s), PO, 2xDaily, X 5 day(s), # 10 cap(s), 0 Refill(s), Pharmacy: [facility]/pharmacy #[id number],1 cap(s) PO 2xDaily,x5 day(s), 1, 162.56, cm, 08/20/23 10:54:00 EST, Height cm, 112.491, kg, 08/20/23 10:54:00 EST, Weight, Actual kg Start Date: 08/20/23 Stop Date: 08/25/23 Status: Ordered triamterene-hydrochlorothiazide 37.5 mg-25 mg Tab 0 Refill(s), 1 Start Date: 08/20/23 Status: Ordered Vital Signs Most recent to oldest [Reference Range]: 1 Temperature Temporal Artery [97.3-100 De gF] 98.7 DegF (08/20/23 10:54 AM) Pulse Rate [60-90 bpm] 79 bpm (08/20/23 10:54 AM) Mean Arterial Pressure, Cuff [65 mmHg] 8 6 mmHg (08/20/23 10:54 AM) Blood Pressure [90-120/60-90 mmHg] 116/7 1mmHg (08/20/23 10:54 AM) Weight Unit of Measure POUNDS (08/20/23 10:54 AM) Weight, Actual kg 112.491 kg (08/20/23 10:54 AM) Weight, Actual lbs 248 lb (08/20/23 10:54 AM) Weight, Actual lbs - manual 248 lb (08/20/23 10:54 AM) Measured Weight Yes (08/20/23 10:54 AM) Height cm 162.56 cm (08/20/23 10:54 AM) EHUM Responses Feet/Inches (08/20/23 10:54 AM) Height Feet with Inches 5 ft (08/20/23 10:54 AM) Height Inches with Feet 4 inch(es) (08/20/23 10:54 AM) Height Inches 64 inch(es) (08/20/23 10:54 AM) Body Surface Area 2.2538 (08/20/23 10:54 AM) Body Mass Index (BMI) 42.6 kg/m2 (08/20/23 10:54 AM) [place] Body Weight Calculated 54.7 kg (08/20/23 10:54 AM) Social History Social History Type Response Sex Female Note * Ted Bai PA-C: PERFORM Event Display: [facility] Care Provider Notes Authored Date: Chief Complaint runny nose, cough, sore throat, chills, shaky x2 days. Visit Information Primary Care Physician:?Unassigned , PCP - Unable to obtain Referring Physician: History of Present Illness Patient is a 73-year-old female who presents today with a 2-day history of a runny nose, dry cough,sore throat, chills.?? She notes she did get her flu vaccine. ??She denies knowing of any sick contacts. ??She has taken emergency but has not done anything else for treatment. ??She denies ear pain,difficulty swallowing, chest pain, shortness of breath,??abdominal pain, nausea, vomiting, diarrhea. Review of Systems Constitutional- No fever, No body aches, No chills HEENT- SEE HPI Respiratory- SEE HPI Cardiovascular-No chest pain, no palpitations Abdomen- No diarrhea, No nausea or vomiting, No cramping abdominal pain, no rectal bleeding Genitourinary- No dysuria, No hematuria, no frequency, no urgency Musculoskeletal-No joint pain, no muscle pain, no swelling Psychiatry- No anxiety/ depression, No insomnia, No memory loss Skin- No rash, masses or lesions?? Physical Exam Vitals & Measurements T:??98.7?F ??(Temporal Artery)?? HR:??79??(Pulse)?? BP:??116/71?? SpO2:??93%?? HT:??162.56??cm?? HT:??64??inch(es)?? WT:??248??lb?? WT:??112.491??kg?? BMI:??42.6?? General-Well nourished , well developed, No acute distress HEENT- TM clear, No nasal discharge, No Pharyngeal erythema, Respiratory- No retractions noted, Breath sounds normal bilaterally, No rales, rhonchi?or wheezes heard CVS- Regular rate and rhythm, no murmurs or additional sounds, S1 and S2 heard MS: Normal gait Skin - Normal color, No rashes or masses Psych- AOx3, normal mood, no anxiety/ depression, judgement?good ?? Lab results - current encounter Covid 19 Ag Result: NEG [place] Influenza A ??Antigen: Positive2 Abnormal Infuenza B ??Antigen: Negative2 Assessment/Plan 1.??Influenza A??(Influenza due to other identified influenza virus with other respiratory manifestations)(J10.1) Findings were reviewed and treatment options were discussed with the patient.?? I have sent in Tamiflu for her. ??I instructed continue with adequate rest, hydration and food intake. ??I discussed current isolation guidelines per the CDC. ??I discussed worrisome signs/symptoms when to seek emergentcare. ??She stated she understood. ??She is welcome to follow-up as needed. Ordered: oseltamivir, 75 mg =, 1 cap(s), PO, 2xDaily, X 5 day(s), # 10 cap(s), 0 Refill(s), Pharmacy: [facility]/pharmacy #[id number], 1 cap(s) PO 2xDaily,x5 day(s), 1, 162.56, cm, 08/20/23 10:54:00 EST, Height cm, 112.491, kg, 08/20/23 10:54:00 EST, Weight, Actual kg ?? Contact with and (suspected) exposure to COVID-19??(Contact with and (suspected) exposure to COVID-19)(Z20.822) ?? Other specified symptoms and signs involving the circulatory and respiratory systems??(Other specified symptoms and signs involving the circulatory and respiratory systems)(R09.89) ?? Medications amlodipine 5 mg oral tablet levothyroxine, 1xDaily losartan 50 mg oral tablet metoprolol tartrate, PO, 2xDaily Tamiflu 75 mg oral capsule, 75 mg, 1 cap(s), PO, 2xDaily triamterene-hydrochlorothiazide 37.5 mg-25 mg Tab Allergies codeine??(Tongue swelling) Social History Tobacco Smokeless Tobacco Use: Never (08/20/23) Smoking Tobacco Use: Never a smoker (08/20/23) Lab Results Lab results - current encounter Covid 19 Ag Result: NEG [place] Influenza A ??Antigen: Positive2 Abnormal Infuenza B ??Antigen: Negative2 Diagnostic Results Radiology Results ED??(08/19/23 00:00 - 08/20/23 11:28) ?? Electronically Signed By: Ted Bai PA-C, on 08.20.2023 11:28 AM Electronically Signed By: Patient Care team information Care Team Personnel Name: Unassigned , PCP - Unable to obtain Member Role: PCP Lifetime Name: Ted Bai PA-C Position: [facility] Physician Machinist Helper Urgent Member Role: PA Address: Address: [address] [place] [address]
--- OUTSIDE RECORDS SUMMARY | 2024-08-16 19:12 | XMS_ITS | Summary of Care ---
Author Organization [facility] Address [address] [place] [address]- Care Team Providers Care Studio Set Up Worker Name Role Phone Unassigned, PCP - Unable to obtain Primary Care Physician Unavailable Encounter [facility] [id number] Date(s): 08/25/23 - 08/25/23 [facility] [address] [place] [address]- Encounter Diagnosis Cough(Discharge Diagnosis) - 08/25/23 Wheezing(Discharge Diagnosis) - 08/25/23 Pneumonia(Discharge Diagnosis) - 08/25/23 Attending Physician: Melinda Corado APRN Admitting Physician: HELIO ARAGON Allergies, Adverse Reactions, Alerts Substance Reaction Severity Status codeine Tongue swelling Moderate Active Assessment and Plan Extracted from: Title:[facility] Urgent Care Note Author:Iwona Torrez APRN Date:08/25/23 1.??Cough??(Cough, unspecifi ed)(R05.9) ?? 2.??Wheezing??(Wheezing)(R06.2) ?? 3.??Pneumonia??(Pneumonia, unspecified organism)(J18.9) Rest. Drink plenty of fluids. Use over the counter medications as needed to treat the symptoms. Call us or go the ER if any difficulty breathing, chest pain, fever greater than 102.5, worsening cough, or cough for over 10 days. ?? Call or go to the ER if the following occur: Increasing Pain Fever increases Severe diarrhea or inability to take in fluids Blood in urine, vomitus, or stool Numbness/tingling in Extremities Loss of bowel or bladder function Chest Pain ? Ordered: albuterol, 2 puff(s), INH, 4xDaily, dispense and use with spacer chamber, # 1 EA, 0 Refill(s), [id number], 2 puff(s) INH 4xDaily,Instr:dispense and use with spacer chamber, 1, 162.56, cm, 08/20/23 10:54:00 EST, Height cm, 112.491, kg, 08/20/23... azithromycin, 1 packet(s), PO, 1xDaily, Two tablets by mouth today; 1 tablet by mouth every day after until completed, X 5 day(s), # 6 tab(s), 0 Refill(s), [id number], 1 packet(s) PO 1xDaily,x5 day(s),Instr:Two tablets by mouth today; 1 tablet by... benzonatate, 1-2 caps, PO, 3xDaily, PRN as needed for cough, X 10 day(s), # 30 cap(s), 0 Refill(s), [id number], 1-2 caps PO 3xDaily,x10 day(s),PRN:as needed for cough, 1, 162.56, cm, 08/20/23 10:54:00 EST, Height cm, 112.491, kg, 08/20/23 10:54:0... ?? Medications Albuterol (Eqv-ProAir HFA) 90 mcg/inh inhalation aerosol 2 puff(s), INH, 4xDaily, dispense and use with spacer chamber, # 1 EA, 0 Refill(s), [id number], 2 puff(s) INH 4xDaily,Instr:dispense and use with spacer chamber, 1, 162.56, cm, 08/20/23 10:54:00 EST, Height cm, 112.491, kg, 08/20/23 10:54:00 EST, Weight, Actual kg Start Date: 08/25/23 Status: Ordered amlodipine 5 mg oral tablet 0 Refill(s), 08/20/23 10:56:00 AM EST, 1 Start Date: 08/20/23 Status: Ordered azithromycin 250 mg oral tablet 1 packet(s), PO, 1xDaily, Two tablets by mouth today; 1 tablet by mouth every day after until completed, X 5 day(s), # 6 tab(s), 0 Refill(s), Pharmacy: [facility]/pharmacy #[id number], 1 packet(s) PO 1xDaily,x5 day(s),Instr:Two tablets by mouth today; 1 tablet by mouth every day after until completed, 1, 162.56, cm, 08/20/23 10:54:00 EST, Height cm, 112.491, kg, 08/20/23 10:54:00 EST, Weight, Actual kg Start Date: 08/25/23 Stop Date: 08/30/23 Status: Ordered benzonatate 100 mg oral capsule 1-2 caps, PO, 3xDaily, PRN as needed for cough, X 10 day(s), # 30 cap(s), 0 Refill(s), Pharmacy: [facility]/pharmacy #[id number], 1-2 caps PO 3xDaily,x10 day(s),PRN:as needed for cough, 1, 162.56, cm, 08/20/23 10:54:00 EST, Height cm, 112.491, kg, 08/20/23 10:54:00 EST, Weight, Actual kg Start Date: 08/25/23 Stop Date: 09/04/23 Status: Ordered levothyroxine 1xDaily, 0 Refill(s), 08/20/23 10:56:00 AM EST, 1 Start Date: 08/20/23 Status: Ordered losartan 50 mg oral tablet 0 Refill(s), 08/20/23 10:56:00 AM EST, 1 Start Date: 08/20/23 Status: Ordered metoprolol tartrate mg, PO, 2xDaily, tab(s), 0 Refill(s), 08/20/23 10:56:00 AM EST, 1 Start Date: 08/20/23 Status: Ordered triamterene-hydrochlorothiazide 37.5 mg-25 mg Tab 0 Refill(s), 1 Start Date: 08/20/23 Status: Ordered Vital Signs Most recent to oldest [Reference Range]: 1 Temperature Temporal Artery [97.3-100 De gF] 98.1 DegF (08/25/23 1:46 PM) Pulse Rate [60-90 bpm] 58 bpm *LOW* (08/25/23 1:46 PM) Mean Arterial Pressure, Cuff [65 mmHg] 1 07 mmHg (08/25/23 1:46 PM) Blood Pressure [90-120/60-90 mmHg] 149/8 6mmHg *HI* (08/25/23 1:46 PM) Social History Social History Type Response Sex Female Note * Jeannette Torrez COMPENSATION AGENT: PERFORM Event Display: [facility] [place] Care Provider Notes Authored Date: Chief Complaint pt c/o sob after being diagnosed w/Flu Visit Information Primary Care Physician:?Unassigned , PCP - Unable to obtain Referring Physician: History of Present Illness 73 year old female patient returns to clinic today for re-evaluation after her Tamiflu treatment for influenza A. She notes in some aspects she feels better but she continues with cough and is short of breath with minimal activity. She denies fever or chills. She has no history of COPD, chronic bronchitis or frequent pneumonia or asthma. She reports increased fatigue, coughing, sore throat. Review of Systems Constitutional- No fever, No body aches, No chills HEENT- SEE HPI Respiratory- SEE HPI Cardiovascular-No chest pain, no palpitations Abdomen- No diarrhea, No nausea or vomiting, No cramping abdominal pain, no rectal bleeding Genitourinary- No dysuria, No hematuria, no frequency, no??urgency Musculoskeletal-No joint pain, no muscle pain, no swelling Skin- No rash, masses or lesions ? Physical Exam Vitals & Measurements T:??98.1?F ??(Temporal Artery)?? HR:??58??(Pulse)?? BP:??149/86?? SpO2:??98%?? General-Well nourished , well developed, No acute distress HEENT- NCAT, TM clear, Clear nasal discharge, Mild Pharyngeal erythema, Mild nasal erythema. No cervical lymphadenopathy Respiratory- Decreased Breath sounds diffusely with scattered wheezing noted; no rales. CVS- Regular rate and rhythm, no murmurs or additional sounds, S1 and S2 heard Skin - Normal color, No rashes or masses Psych- AOx3, no anxiety/ depression, judgement -good ?? DuoNeb treatment administered with increased air movement. Tolerated well. CXR Wet read: left lower lobe infiltrate Assessment/Plan 1.??Cough??(Cough, unspecified)(R05.9) ?? 2.??Wheezing??(Wheezing)(R06.2) ?? 3.??Pneumonia??(Pneumonia, unspecified organism)(J18.9) Rest. Drink plenty of fluids. Use over the counter medications as needed to treat the symptoms. Call us or go the ER if any difficulty breathing, chest pain, fever greater than 102.5, worsening cough, or cough for over 10 days. Call or go to the ER if the following occur: Increasing Pain Fever increases Severe diarrhea or inability to take in fluids Blood in urine, vomitus, or stool Numbness/tingling in Extremities Loss of bowel or bladder function Chest Pain Ordered: albuterol, 2 puff(s), INH, 4xDaily, dispense and use with spacer chamber, # 1 EA, 0 Refill(s), Pharmacy: [facility]/pharmacy #[id number], 2 puff(s) INH 4xDaily,Instr:dispense and use with spacer chamber, 1, 162.56, cm, 08/20/23 10:54:00 EST, Height cm, 112.491, kg, 08/20/23... azithromycin, 1 packet(s), PO, 1xDaily, Two tablets by mouth today; 1 tablet by mouth every day after until completed, X 5 day(s), # 6 tab(s), 0 Refill(s), Pharmacy: [facility]/pharmacy #[id number], 1 packet(s) PO 1xDaily,x5 day(s),Instr:Two tablets by mouth today; 1 tablet by... benzonatate, 1-2 caps, PO, 3xDaily, PRN as needed for cough, X 10 day(s), # 30 cap(s), 0 Refill(s),Pharmacy: [facility]/pharmacy #[id number], 1-2 caps PO 3xDaily,x10 day(s),PRN:as needed for cough, 1, 162.56, cm, 08/20/23 10:54:00 EST, Height cm, 112.491, kg, 08/20/23 10:54:0... ?? Medications Albuterol (Eqv-ProAir HFA) 90 mcg/inh inhalation aerosol, 2 puff(s), INH, 4xDaily amlodipine 5 mg oral tablet azithromycin 250 mg oral tablet, 1 packet(s), PO, 1xDaily benzonatate 100 mg oral capsule, 1-2 caps, PO, 3xDaily, PRN levothyroxine, 1xDaily losartan 50 mg oral tablet metoprolol tartrate, PO, 2xDaily triamterene-hydrochlorothiazide 37.5 mg-25 mg Tab Allergies codeine??(Tongue swelling) Social History Tobacco Smokeless Tobacco Use: Never (08/25/23) Smoking Tobacco Use: Never a smoker (08/25/23) Lab Results Lab results - current encounter?? Diagnostic Results Radiology Results ED??(08/24/23 00:00 - 08/25/23 14:46) ?? Chest 2V - Diagnostic Imaging ?Performed on: 08/25/2023 14:29?? CLINICAL INDICATION: ??Cough? FINDINGS: Cardiac and mediastinal sweats unremarkable.? A few linear markings left lower lung field. We most commonly see ?? this type pattern with atelectasis and/or scar. Minimal patchy ?? inflammatory reaction possible. No segmental pneumonia. No vascular ?? congestion or effusion.? IMPRESSION: There is some bandlike densities left lower chest, we ?? most commonly see this with atelectasis or scar although occasionally ?? minimal patchy inflammatory change can give this appearance. There is ?? no segmental pneumonia. There is no effusion.? 2:34 PM?? INTERPRETED BY: Madhav Geronimo ?? Finalized On: 08/25/2023 14:36 ? Electronically Signed By: Jeannette Torrez APRN, on 08.25.2023 02:46 PM Electronically Signed By: XR Chest 2 Views * Event Display: Chest 2V Authored Date: * Event Display: Chest 2V Authored Date: Exam Date/Time: 08/25/2023 14:29 Finalized On: 08/25/2023 14:36 PROCEDURE: CHEST 2 VIEWS CLINICAL INDICATION: Cough FINDINGS: Cardiac and mediastinal sweats unremarkable. A few linear markings left lower lung field. We most commonly see this type pattern with atelectasis and/or scar. Minimal patchy inflammatory reaction possible. No segmental pneumonia. No vascular congestion or effusion. IMPRESSION: There is some bandlike densities left lower chest, we most commonly see this with atelectasis or scar although occasionally minimal patchy inflammatory change can give this appearance. There is no segmental pneumonia. There is no effusion. RPRETED BY: Madhav Geronimo Finalized On: 08/25/2023 14:36 Patient Care team information Care Team Personnel Name: Unassigned , PCP - Unable to obtain Member Role: PCP Lifetime Name: Jeannette Torrez APRN Position: [facility] Nurse Practitioner Urgent Member Role: Nurse Practitioner Address: Address: [address] [place] [phone]
--- OUTSIDE RECORDS SUMMARY | 2024-08-16 19:12 | XMS_ITS | Referral Summary ---
Author Organization [facility] Address [address] [place] [phone] Care Team Providers Care Felt Cutter Name Role Phone Bobby Minor MD Primary Care Provider Bobby Minor MD Unavailable [phone] Encounters Date Type Department Care Team Description 05/31/2024 10:00 AM CDT Office Visit [facility] Surgery [address] [facility] Floor 5 [place] [address] Prabhjot Keenan MD Pulmonary nodule (Primary Dx) 05/31/2024 7:50 AM CDT - 05/31/2024 11:59 PM CDT Hospital Encounter [facility] - [place] [address] [facility] Floor 8 [place] [address] Pulmonary nodule Discharge Disposition: Discharge to home or self care from Last 3 Months Allergies Active Allergy Reactions Criticality Noted Date [...] Closed fracture of orbital floor (CMS/HCC) 07/21 Immunizations Name Administration Dates Next Due Influenza, Quadrivalent, Split, Intramuscular Influenza, Quadrivalent, Spl it, Preservative Free, Intramuscular 07/20/2018 Influenza, Trivalent, IM (MDV) 05/01/2013 Moderna SARS-CoV-2 Monovalent Vaccination (12+ Y RS) 10/24/2020,09/26/2020 Pneumococcal Conjugate PCV 13 01/13/2015 Pneumococcal Polysaccharide PPV23 09/22/2014 ZOSTER LIVE 09/05/2012 ZOSTER Recombinant 05/02/2019 Social History Tobacco Use Types Packs/Day Years [...] on file 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 Gender Identity Not on file Sexual Orientation Not on file Last Filed Vital Signs Vital Sign Reading Time Taken Comments Blood Pressure 137/83 05/31/2024 9:33 AM CDT Pulse 72 05/31/2024 9:33 AM CDT Temperature 36.4 ??C (97.5 ??F) 05/31/2024 9:33 AM CD T Respiratory Rate 18 05/31/2024 9:33 AM CDT Oxygen Saturation 98% 05/31/2024 9:33 AM CDT Inhaled Oxygen Concentration - - Weight 109.4 kg (241 lb 3.2 oz) 024 9:33 AM CDT Height 162.6 cm (5' 4 ) 05/31/2024 9:33 AM CDT Body Mass Index 41.4 05/31/2024 9:33 AM CDT Plan of Treatment Not on file Procedures Procedure Name Priority Date/Time Associated Diagnosis [...] Final Result from Last 3 Months Insurance * Guarantor: Carol Hatch Account Type Relation to Patient Date of Phone Billing Address Personal/Family Self 1950 [address] [place] [address] MEDICARE [facility] FEDERAL MEDICARE [facility] FEDERAL [facility] [employer] [facility] MEDICARE Care Teams Felt Cutter Relationship Specialty Start Date End Date Bobby Minor MD [address] [phone] (Work) PCP - General Internal Medicine 12/25/20 Bobby Minor MD [address] [place] [address] Referring Physician Internal Medicine 05/31/24
--- OUTSIDE RECORDS SUMMARY | 2024-08-16 19:12 | XMS_ITS | Encounter Summary ---
Author Organization [facility] Address [address] [facility] [address] [place] [address] Phone Care Team Providers Care Computer Science Instructor Name Role Phone Bobby Minor MD Primary Care Provider [phone] Reason for Referral * MRI/CAT/PET Scan (Routine) - Closed Specialty Diagnoses / Procedures Referred By Chris randall Referred To Contact Radiology Diagnoses Pulmonary nodule Procedures CT chest without contrast Irene Gardner NP Phone: tel: fax: [address] [phone] Referral ID Status Reason Start Date Expiration Date Visits Re quested Visits Authorized [id number] Closed 10/29/2021 05/14/2022 1 1 Encounter Details Date Type Department Care Team (Late st Contact Info) Description 04/14/2021 2:15 PM CDT Office Visit [facility] Surgery [address] [facility] 8th [place] [address] [place] [address] Prabhjot Keenan MD [id number] [place] [address] Pulmonary nodule (Primary Dx) Social History Tobacco [...] on file 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 Gender Identity Not on file Sexual Orientation Not on file documented as of this encounter Last Filed Vital Signs Vital Sign Reading Time Taken Comments Blood Pressure 145/77 04/14/2021 12:44 PM CDT Pulse 61 04/14/2021 12:44 PM CDT Temperature 36.6 ??C (97.8 ??F) 04/14/2021 12:44 PM C DT Respiratory Rate 20 04/14/2021 12:44 PM CDT Oxygen Saturation 97% 04/14/2021 12:44 PM CDT Inhaled Oxygen Concentration - - Weight 95.3 kg (210 lb) 04/14/2021 12:44 PM CDT Height 162.6 cm (5' 4 ) 04/14/2021 12:44 PM CDT Body Mass Index 36.05 04/14/2021 12:44 PM CDT documented in this encounter Progress Notes * Prabhjot Keenan MD - 04/14/2021 2:15 PM CDT [facility] Thoracic Surgery Note 04/15/2021 Bobby Minor MD Carol Hatch 1950 Dear Bobby Minor MD: I was pleased to see Carol Hatch in follow-up on April 14, 2021. As you may recall we have beenfollowing a number of indeterminate pulmonary nodule. The dominant lesion is a 6 mm lesion in the left lower lobe. The patient underwent a surveillance CT scan on April 14. This demonstrates all of these previously noted lesions none of which have changed in size. We have reassured the patient and asked her to return for a routine noncontrast CT scan in 6 months. Thank you very much. Yours sincerely, Manuel Keenan MD Digital Printer completed by using [email or web address] Direct speaking software, therefore, transcriptionvariances may occur. documented in this encounter Plan [...] signed by: Flaquito Portillo M.D. Irene Gardner REMOTE SENSING TECHNOLOGIST IMG CT PROCEDURES Final Result documented in this encounter Visit Diagnoses Diagnosis Pulmonary nodule- Primary Other diseases of lung, not elsewhere classified Pulmonary nodule Other diseases of lung, not elsewhere classified documented in this encounter Care Teams Computer Science Instructor Relationship Specialty Start Date End Date Bobby Minor MD [address] [place] [address] PCP - General Internal Medicine 12/25/20 documented as of this encounter
--- OUTSIDE RECORDS SUMMARY | 2024-08-16 19:12 | XMS_ITS | Encounter Summary ---
Author Organization [facility] Healthcare Address [address] [place] [address] Care Team Providers Care Production Line Worker Name Role Phone Bobby Minor MD Primary Care Provider [phone] Reason for Referral * MRI/CAT/PET Scan (Routine) - Closed Specialty Diagnoses / Procedures Referred By Contac t Referred To Contact Radiology Diagnoses Pulmonary nodule Procedures CT Chest WO Contrast Prabhjot Keenan MD [address] [facility] [address] [place] [address] Phone: tel: fax: [address] [phone] Referral ID Status Reason Start Date Expiration Date Visits Re quested Visits Authorized [id number] Closed 04/25/2023 05/24/2024 1 1 Reason for Visit * MRI/CAT/PET Scan (Routine) - Closed Specialty Diagnoses / Procedures Referred By Contac t Referred To Contact Radiology Diagnoses Pulmonary nodule Procedures CT Chest WO Contrast Prabhjot Keenan MD [address] [facility] [place] [address] [place] [address] Phone: tel: fax: [address] [phone] Referral ID Status Reason Start Date Expiration Date Visits Re quested Visits Authorized [id number] Closed 04/25/2023 05/24/2024 1 1 Encounter Details Date Type Department Care Team (Latest Contact Info) Description 05/12/2023 7:44 AM CDT - 05/12/2023 11:59 PM CDT Hospital Encounter [facility] [address] [place] [address] Prabhjot Keenan MD [address] [place] [address] Pulmonary nodule Discharge Disposition: Discharge to home [...] on file 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 Prabhjot Keenan MD IMG CT PROCEDURES Final R esult documented in this encounter Visit Diagnoses Diagnosis Pulmonary nodule Other diseases of lung, not elsewhere classified documented in this encounter Care Teams Production Line Worker Relationship Specialty Start Date End Date Bobby Minor MD [address] [place] [address] PCP - General Internal Medicine 12/25/20 documented as of this encounter
--- OUTSIDE RECORDS SUMMARY | 2024-08-16 19:12 | XMS_ITS | Encounter Summary ---
Author Organization [facility] Healthcare Address [facility] [place] [address] Care Team Providers Care Paralegal Assistant Name Role Phone Bobby Minor MD Primary Care Provider [phone] Encounter Details Date Type Department Care Team (Latest Contact Info) Description 12/29/2020 5:42 PM CDT - 12/29/2020 11:59 PM CDT Hospital Encounter [facility] [address] [place] [id number] Discharge Disposition: Discharge to home or self care Social History Tobacco Use Types Packs/Day Years Used Date Smoking Tobacco: Never Assessed Comments Unknown Sex and Gender Information Value Date Recorded Sex Assigned at Not on file 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 Gender Identity Not on file Sexual Orientation Not on file documented as of this encounter Medications at Time of Discharge atorvastatin (LIPITOR) 40 mg tablet 11/21/2020 levothyroxine (SYNTHROID) 112 mcg tablet 11/21/2020 metoprolol [...] Name Priority Date/Time Associated Diagnosis Comments CT BODY OUTSIDE REFERENCE Routine 12/29/2020 5:42 PM CDT Diagnosis unknown documented in this encounter Results * CT Body Outside Reference (12/29/2020 5:42 PM CDT) Impressions [facility] - 12/29/2020 5:42 PM CDT These images are for Reference purposes only and have not been reviewed by [facility]. ??There will be no report generated by a [facility] Radiologist. Narrative [facility] - 12/29/2020 5:42 PM CDT EXAMINATION: ??Images For Reference Purposes Only Prabhjot Keenan MD IMG CT PROCEDURES Final R esult [facility] documented in this encounter Visit Diagnoses Not on filedocumented in this encounter Care Teams Paralegal Assistant Relationship Specialty Start Date End Date Bobby Minor MD [address] [place], [place] [id number] PCP - General Internal Medicine 12/25/20 documented as of this encounter
--- OUTSIDE RECORDS SUMMARY | 2024-08-16 19:12 | XMS_ITS | Encounter Summary ---
Author Organization [facility] Healthcare Address [address] [place] [address] Care Team Providers Care Brass Chaser Name Role Phone Bobby Minor MD Primary Care Provider [phone] Bobby Minor MD Unavailable [phone] Reason for Referral * MRI/CAT/PET Scan (Routine) - Closed Specialty Diagnoses / Procedures Referred By Chris randall Referred To Contact Radiology Diagnoses Pulmonary nodule Procedures CT chest without contrast Irene Gardner NP [address] [facility] [address] [place] [address] Phone: tel: fax: [address] [phone] Referral ID Status Reason Start Date Expiration Date Visits Re quested Visits Authorized [id number] Closed 05/12/2023 06/10/2024 1 1 Reason for Visit * MRI/CAT/PET Scan (Routine) - Closed Specialty Diagnoses / Procedures Referred By Chris randall Referred To Contact Radiology Diagnoses Pulmonary nodule Procedures CT chest without contrast Irene Gardner NP [address] [facility] [address] [place] [address] Phone: tel: fax: [address] [phone] Referral ID Status Reason Start Date Expiration Date Visits Re quested Visits Authorized [id number] Closed 05/12/2023 06/10/2024 1 1 Encounter Details Date Type Department Care Team (Latest Contact Info) Description 05/31/2024 7:50 AM CDT - 05/31/2024 11:59 PM CDT Hospital Encounter [facility] - CT [address] [facility] Floor [address] [place] [address] Pulmonary nodule Discharge Disposition: Discharge to home [...] on file 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 Gender Identity Not on file Sexual Orientation [...] mouth 2 (two) times a day 04/07/2014 triamterene-hydr oCHLOROthiazide 37.5-25 mg per tablet 11/21/2020 amLODIPine (NORVASC) 5 mg tablet Take 1 tablet (5 mg total) by mouth daily esomeprazole DR (NexIUM) 20 mg capsule Take 2 capsules (40 mg total) by mouth daily before breakfast losartan (COZAAR) 50 mg tablet Take 1 tablet (50 mg total) by mouth daily documented as of this encounter Discharge Disposition Disposition Code Departure Means Destination Discharge to home or self care documented in this encounter Plan of Treatment Not on file documented as of this encounter Procedures Procedure Name Priority Date/Time Associated Diagnosis Comments CT CHEST WO CONTRAST Schedule Routine, Read Routine (OP Routine) 05/31/2024 8:16 AM CDT Pulmonary nodule documented in this [...] Gardner NP IMG CT PROCEDURES Final Result documented in this encounter Visit Diagnoses Diagnosis Pulmonary nodule Other diseases of lung, not elsewhere classified documented in this encounter Care Teams Brass Chaser Relationship Specialty Start Date End Date Bobby Minor MD [address] [place] [address] PCP - General Internal Medicine 12/25/20 Bobby Minor MD [address] [place] [address] Referring Physician Internal Medicine 05/31/24 documented as of this encounter
--- OUTSIDE RECORDS SUMMARY | 2024-08-16 19:12 | XMS_ITS | Encounter Summary ---
Author Organization [facility] Healthcare Address [address] [place] [address] Care Team Providers Care Farm Management Supervisor Name Role Phone Bobby Minor MD Primary Care Provider [phone] Reason for Referral * MRI/CAT/PET Scan (Routine) - Canceled Specialty Diagnoses / Procedures Referred By Chris randall Referred To Contact Radiology Diagnoses Pulmonary nodule Procedures CT chest without contrast Prabhjot Keenan MD Phone: tel: fax: [address] [phone] Referral ID Status Reason Start Date Expiration Date V isits Requested Visits Authorized [id number] Canceled 03/30/2021 02/12/2022 1 1 Reason for Visit * MRI/CAT/PET Scan (Routine) - Canceled Specialty Diagnoses / Procedures Referred By Chris randall Referred To Contact Radiology Diagnoses Pulmonary nodule Procedures CT chest without contrast Prabhjot Keenan MD Phone: tel: fax: [address] [phone] Referral ID Status Reason Start Date Expiration Date V isits Requested Visits Authorized [id number] Canceled 03/30/2021 02/12/2022 1 1 Encounter Details Date Type Department Care Team (Latest Contact Info) Description 04/14/2021 12:17 PM CDT - 04/14/2021 11:59 PM CDT Hospital Encounter [facility] [address] [place] [address] Prabhjot Keenan MD [address] [place] [address] Pulmonary nodule Discharge Disposition: Discharge to home [...] on file 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 A left-sided aorta [...] Outside reference CT chest without contrast from [facility] dated 12/18/2020 FINDINGS: A left-sided aorta is [...] use. Electronically signed by: Tyshawn Mcgowan MD us Prabhjot Keenan MD IMG CT PROCEDURES Final R esult documented in this encounter Visit Diagnoses Diagnosis Pulmonary nodule Other diseases of lung, not elsewhere classified documented in this encounter Care Teams Farm Management Supervisor Relationship Specialty Start Date End Date Bobby Minor MD [address] [place], [place] [id number] PCP - General Internal Medicine 12/25/20 documented as of this encounter
--- OUTSIDE RECORDS SUMMARY | 2024-08-16 19:12 | XMS_ITS | Encounter Summary ---
Author Organization [facility] Address [address] [facility] [address] [place] [address] Phone Care Team Providers Care Pulp Drier Name Role Phone Bobby Minor MD Primary Care Provider [phone] Encounter Details Date Type Department Care Team (Late st Contact Info) Description 12/01/2021 12:45 PM CDT Office Visit [facility] Surgery [address] [facility] Advanced Medicine 8th [place] [address] [place] [address] Prabhjot Keenan MD [address] [facility] [address] [place] [address] Pulmonary nodule (Primary Dx) Social [...] on file 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 Gender Identity Not on file Sexual Orientation Not on file documented as of this encounter Last Filed Vital Signs Vital Sign Reading Time Taken Comments Blood Pressure 136/81 12/01/2021 11:50 AM CDT Pulse 61 12/01/2021 11:50 AM CDT Temperature 36.2 ??C (97.1 ??F) 12/01/2021 11:50 AM C DT Respiratory Rate 18 12/01/2021 11:50 AM CDT Oxygen Saturation 97% 12/01/2021 11:50 AM CDT room air Inhaled Oxygen Concentration - - Weight 96.7 kg (213 lb 3.2 oz) 12/01/2021 11:50 AM CDT Height 163.8 cm (5' 4.5 ) 12/01/2021 11:50 AM CD T Body Mass Index 36.03 12/01/2021 11:50 AM CDT documented in this encounter Progress Notes * Prabhjot Keenan MD - 12/01/2021 12:45 PM CDT [facility] Thoracic Surgery Note 12/02/2021 Bobby Minor MD Carol Hatch 1950 Dear Bobby Minor MD: I was pleased to see Carol Hatch in follow-up on December 01, 2021. As you will recall we have been following a number of indeterminate pulmonary nodules. The largest of these is a 6 mm lesion in the left lower lobe. The patient underwent a surveillance CT scan on December 01. This demonstrates no change in the size of any of these lesions. It would appear that these lesions are in fact benign granulomas. However further follow-up is warranted. We have arranged for the patient undergo a routine surveillance CT scan in 6 months. Thank you very much. Yours sincerely, Manuel Keenan MD Pipe Crew Foreman completed by using [employer] Direct speaking software, therefore, transcriptionvariances may occur. documented in this encounter Plan of Treatment Not on file documented as of this encounter Visit Diagnoses Diagnosis Pulmonary nodule- Primary Other diseases of lung, not elsewhere classified documented in this encounter Care Teams Pulp Drier Relationship Specialty Start Date End Date Bobby Minor MD [address] [place] [address] PCP - General Internal Medicine 12/25/20 documented as of this encounter
--- OUTSIDE RECORDS SUMMARY | 2024-08-16 19:12 | XMS_ITS | Encounter Summary ---
Author Organization [facility] Address [address] [place] [address] Phone Care Team Providers Care Application Security Engineer Name Role Phone Bobby Minor MD Primary Care Provider [phone] Bobby Minor MD Unavailable [phone] Reason for Referral * MRI/CAT/PET Scan (Routine) - Authorized Specialty Diagnoses / Procedures Referred By Chris randall Referred To Contact Radiology Diagnoses Pulmonary nodule Procedures CT Chest WO Contrast Irene Gardner NP [address] [facility] [id number] [place] [address] Phone: tel: fax: [address] [address] Referral ID Status Reason Start Date Expiration Date V isits Requested Visits Authorized [id number] Authorized 05/31/2024 06/30/2025 1 1 Encounter Details Date Type Department Care Team (Late st Contact Info) Description 05/31/2024 10:00 AM CDT Office Visit [facility] Surgery 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 female presenting today for follow up visit. Donna Hatch past medical, social, and family history documented in the electronic medical record. There have been no interval changes. She is here today to follow up on some indeterminate pulmonary nodules. 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 This was completely excised and she was evaluated by local radiation oncology, however, no radiation was warranted. She continues to heal in his closely monitored by local ENT. She has persistent hoarseness, however, this has improved. She otherwise has been doing well. She denies recent illnesses. She has hadno recent fevers, chills, night sweats, cough, hemoptysis, chest pain, shortness of breath. Her appetite is good. Her weight is stable. She reports fair energy and activity levels. CURRENT MEDICAL CONDITIONS: Patient Active Problem List Diagnosis Fracture of facial bone (HCC) Closed fracture of orbital floor (CMS/HCC) (HCC) Pulmonary nodule History of skin cancer History of cervical cancer Active Problems: No Active Problems: There are no active problems currently on the Problem List. Please update the Problem List and refresh. PAST MEDICAL HISTORY: She has a past medical history of Atrophy of thyroid, Cervical cancer (CMS/HCC) (HCC), Colon polyps, Essential hypertension, Hypothyroidism, Intrinsic (allergic) eczema, Low back pain, Mixed hyperlipidemia, Tinea unguium, Type 2 diabetes mellitus (HCC), and Vitamin deficiency, unspecified. PAST SURGICAL HISTORY: She has a past surgical history that includes Colonoscopy; Umbilical hernia repair (2014); Tonsillectomy and adenoidectomy; and Knee arthroscopy (Right, 06/26/2013). MEDICATIONS: She has a current medication list which includes the following prescription(s): atorvastatin, cholecalciferol, levothyroxine, metoprolol tartrate, triamterene- hydrochlorothiazide, amlodipine, esomeprazole dr, and losartan. ALLERGIES: She is allergic to codeine. FAMILY HISTORY: Her family history includes Breast cancer in her mother; Colon cancer in her mother; Peripheral vascular disease in her father; Ulcerative colitis in her sister. SOCIAL HISTORY: She reports that she quit smoking about 12 years ago. Her smoking use included cigarettes. She has never used smokeless tobacco. She reports that she does not use drugs. Patient reports consuming alcoholic drinks monthly or less, with a daily consumption of drinks. Patient denies daily consumption of 6 or more alcoholic drinks at one occasion. Pain Scale: None Current Opioid Use: No Number per day: 0 Dose in m Review of Systems: Review of Systems Constitutional: Negative. HENT: Persistent but improving hoarseness. Eyes: Negative. Respiratory: Negative. Cardiovascular: Negative. Gastrointestinal: Negative. Genitourinary: Negative. Musculoskeletal: Negative. Skin: Negative. Neurological: Negative. Endo/Heme/Allergies: Negative. Psychiatric/Behavioral: Negative. All other systems reviewed and are negative. Physical Exam Vitals and nursing note reviewed. [employer] present: She comes to clinic alone.. Constitutional: Appearance: She is obese. HENT: Head: Normocephalic and [...] focal deficit present. Mental Status: She is alert and oriented to person, place, and time. Mental status is at baseline. Psychiatric: Mood and Affect: Mood normal. Behavior: Behavior normal. Thought Content: Thought content normal. Judgment: Judgment normal. ECOG Performance Status: 0 - Asymptomatic. Fully active, able to carry on all predisease activities without restriction. Significant Imaging: She had a CT scan of the chest performed for today's visit. I personally reviewed those images with Dr. Keenan who subsequently went over the results with the patient. Again seen is stable indeterminate pulmonary nodules with the largest measuring 7 mm located in the left lower lobe of the lung. There are no new pulmonary nodules or concerning lymphadenopathy seen on today's imaging. I have included the final radiology summary below. COMPARISON: CT of the chest without contrast [...] been stable dating back to April 2021. Ht: 162.6 cm (5' 4 ) Wt: 109.4 kg (241 lb 3.2 oz) BMI: Body mass index is 41.4 kg/m??. BP 137/83 (BP Location: Left arm) Pulse 72 Temp 36.4 ??C (97.5 ??F) (Oral) Resp 18 Ht 162.6cm (5' 4 ) Wt 109.4 kg (241 lb 3.2 oz) SpO2 98% BMI 41.40 kg/m?? ASSESSMENT AND PLAN: Overall, I believe Carol Hatch is doing reasonably well at this time. We have made plans to see her back in 1 year with a non contrast CT scan of the chest. I will keep everyone apprised of those findings as well as her progress and plan of care. Certainly, if you have any questions or concerns,you may contact my office. Otherwise, thank you for allowing me the opportunity of participating in the care of your patient. Carol Hatch demonstrates understanding and is amenable to the outlined plan. There are no barriers to education today. The patient is encouraged to call the clinic with any questions or concerns. Irene Gardner NP Applied Behavior Specialist completed using [employer] Direct software, therefore, wound care center consultant variances may occur. documented in this encounter Plan of Treatment Scheduled Orders Name Type Priority Associated Diagnoses Orde r Schedule CT Chest WO Contrast Imaging Schedule Routine, Read Routine (OP Routine) Pulmonary nodule Expected: 05/31/2025, Expires: 11/29/2025 documented as of this encounter Visit Diagnoses Diagnosis Pulmonary nodule- Primary Other diseases of lung, not elsewhere classified documented in this encounter Historical Medications * This list may reflect changes made after this encounter. losartan (COZAAR) 50 mg tablet Take 1 tablet (50 mg total) by mouth daily esomeprazole DR (NexIUM) 20 mg capsule Take 2 capsules (40 mg total) by mouth daily before breakfast amLODIPine (NORVASC) 5 mg tablet Take 1 tablet (5 mg total) by mouth daily added in this encounter Care Teams Application Security Engineer Relationship Specialty Start Date End Date Bobby Minor MD [address] [place] [address] PCP - General Internal Medicine 12/25/20 Bobby Minor MD [address] [place] [address] Referring Physician Internal Medicine 05/31/24 documented as of this encounter
== END 2024-08-09 08:18 | disposition home or self-care (01) ==
LOC: ANHIMG 08:32
PROVIDERS: PCP Internal Medicine; Visit Provider Internal Medicine Hematology & Oncology
DX: C32.9 Malignant neoplasm of larynx, unspecified (principal)
CPT/HCPCS: 70491; 71260; Q9967

== ENCOUNTER 2024-11-28 09:24 | Outpatient (CLI) | payer MEDICARE, BC, SELFPAY ==
--- OUTSIDE RECORDS SUMMARY | 2024-11-28 10:00 | XMS_ITS | Clinical Summary ---
Author Organization [facility] Eno[facility]linnvince Lintonfredo Address [address] [place] [address] Care Team Providers Care Director Of Operations Home Health Name Role Phone Bobby Minor MD Primary Care Provider + Allergies Active Allergy Reactions Criticality Noted Date Comments Codeine Anaphylaxis High 03/26/2024 Medications Cholecalciferol , Vitamin D3, 50 mcg (2,000 unit) Capsule 2,000 Units. Act magui esomeprazole (NexIUM) 20 mg Capsule, Delayed Release(E.C.) Take 40 mg by mouth daily before breakfast. Active triamterene-hyd roCHLOROthiazid e (DYAZIDE) 37.5-25 mg capsule Take 1 Capsule by mouth daily in the morning. Active levothyroxine 125 mcg tablet Take 125 mcg by mouth daily in the morning. Active metoprolol tartrate (LOPRESSOR) 25 mg tablet Take 25 mg by mouth 2 times daily. Active losartan (COZAAR) 50 mg tablet Take 50 mg by mouth daily. Active amLODIPine (NORVASC) 5 mg tablet Take 5 mg by mouth daily. Active Active Problems No known active problems Encounters Date Type Department Care Team Description 10/30/2024 External Device Data STL ABSTRACTION Provider, Abstract 10/19/2024 External Device Data STL ABSTRACTION Provider, Abstract 10/18/2024 External Device Data STL ABSTRACTION Provider, Abstract 10/16/2024 External Device Data STL ABSTRACTION Provider, Abstract 10/01/2024 External Device Data STL ABSTRACTION Provider, Abstract 09/10/2024 External Device Data STL ABSTRACTION Provider, Abstract 09/04/2024 External Device Data STL ABSTRACTION Provider, Abstract 09/04/2024 External Device Data STL ABSTRACTION Provider, Abstract from Last 3 Months Family History Medical History Relation Name Comments Bone Cancer Brother Breast Cancer Maternal Aunt Colon Cancer Mother Kidney Cancer Sister 1 Breast Cancer Sister 2 No Known Problems Sister 3 Relation Name Status Comments Brother Father Maternal Aunt Alive Mother Sister 1 Alive Sister 2 Alive Sister 3 Alive Social History Tobacco Use Types Packs/Day Years Used Date Smoking Tobacco: Former Cigarettes 2 40 Q uit: 03/26/2012 Alcohol Use Standard Drinks/Week Comments Yes 0 (1 standard drink = 0.6 oz pur e alcohol) socially Comments Unknown Sex and Gender Information Value Date Recorded Sex Assigned at Not on file Legal Sex Female 1:31 PM CDT Gender Identity Not on file Sexual Orientation Not on file Last Filed Vital Signs Vital Sign Reading Time Taken Comments Blood Pressure 140/86 03/26/2024 3:20 PM CDT Pulse 74 03/26/2024 3:20 PM CDT Temperature 36.7 C (98 F) 03/26/2024 3:20 PM CDT Respiratory Rate 18 03/26/2024 3:20 PM CDT Oxygen Saturation 96% 03/26/2024 3:20 PM CDT Inhaled Oxygen Concentration - - Weight 109.3 kg (241 lb) 03/26/2024 3:20 PM CDT Height 165.1 cm (5' 5 ) 03/26/2024 3:20 PM CDT Body Mass Index 40.1 03/26/2024 3:20 PM CDT Plan of Treatment Upcoming Encounters Date Type Department Care Team (Late st Contact Info) Description 01/03/2025 11:00 AM CDT Office Visit [facility] Oncology and Hematology - [address] [facility] [address] [place] [address] Ari Acosta MD [address] [facility] [address] [place] [address] Health Maintenance Due Date Last Done Comments DTAP/TDAP/TD VACCINES (1 - Tdap) 1971 FIT-DNA Q 3 years 1997 FIT/FOBT Q 1 year 1997 Flex Sig/CT Colonography Q 5 years 1997 Lung Cancer Screening 2002 RSV VACCINE (60+ or ) (1 - Risk 60-74 years 1-dose series) 2012 ZOSTER VACCINE (3 of 3) 06/27/2019 05/02/2019, 09/05 PNEUMOCOCCAL VACCINE 50+ YEA RS (3 of 3 - PCV20 or PCV21) 01/14/2020 01/13/2015, 09/22/2014 INFLUENZA VACCINE (#1) 2024 8, 04/07/2017, 05/01/2013 COVID-19 Vaccine (3 - 2023-2 5 season) 2024 10/24/2020, 09/26/2020 BREAST CANCER SCREENING 05/14/2025 05/14/20 24, 05/14/2024, 04/28/2023, Additional history exists COLORECTAL SCREENING 03/10/2032 03/10/2022 Colorectal Cancer Screening 03/10/2032 OSTEOPOROSIS SCREENING Completed 12/18/2020 Insurance MEDICARE PART A AND B [facility] Care Teams Director Of Operations Home Health Relationship Specialty Start Date End Date Bobby Minor MD [address] [place] [address] PCP - General Internal Medicine 03/26/24
--- OUTSIDE RECORDS SUMMARY | 2024-11-28 10:01 | XMS_ITS | Clinical Summary ---
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 Gender Identity Not on file Sexual Orientation Not on file Obstetrics History Last Filed Vital Signs Vital Sign Reading Time Taken Comments Blood Pressure 137/83 05/31/2024 9:33 AM CDT Pulse 72 05/31/2024 9:33 AM CDT Temperature 36.4 C (97.5 F) 05/31/2024 9:33 AM CDT Respiratory Rate 18 05/31/2024 9:33 AM CDT [...] Pneumococcal vaccine 65+ (3 of 3 - PCV20 or PCV21) 01/14/2020 01/13/2015, 09/22/2014 Covid-19 Vaccine (3 - season) 2024, 09/26/2020 Influenza Vaccine (Season Ended) 2025 07/20/2018, 04/07/2017, 05/01/2013 Insurance MEDICARE [facility] MEDICARE [facility] [place] [facility] MEDICARE Care Teams Social Media Executive Relationship Specialty Start Date End Date Bobby Minor MD [address] [place] [address] PCP - General Internal Medicine 12/25/20 Bobby Minor MD [address] [place] [address] Referring Physician Internal Medicine 05/31/24
--- OUTSIDE RECORDS SUMMARY | 2024-11-28 10:01 | XMS_ITS | Referral Summary ---
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
[2024-11-28 10:23] LABS: Anion Gap 8 mmol/L (4-12); Blood Urea Nitrogen 16 mg/dL (7-18); Calcium 8.9 mg/dL (8.5-10.1); Carbon Dioxide 28 mmol/L (21-32); Chloride 107 mmol/L (98-108); Estimated Glomerular Filt Rate > 60; Glucose 125 mg/dL (70-99); Osmolality Calculated 298 mOsm/kg (285-295); Potassium 4.4 mmol/L (3.5-5.1); Sodium 143 mmol/L (136-145)
== END 2024-11-28 09:25 | disposition home or self-care (01) ==
LOC: CHSLAB 09:27
PROVIDERS: PCP Internal Medicine; Visit Provider Anesthesiology
DX: I10 Essential (primary) hypertension (principal)
CPT/HCPCS: 36415; 80048

== ENCOUNTER 2024-12-02 00:28 | Day surgery (SDC) | payer MEDICARE, BC, SELFPAY ==
--- NOTE | 2024-11-21 14:24 | PC.NURSE ---
Report to the Outpatient Waiting Room, entrance under the green pavilion located off [facility], at time ___7 AM____ on date __12/02/24 . Planned Procedure Time: __9AM .? Time changes happen often and if your time is changed the preop area will call you the afternoon before. - You and your visitor will be asked to self-screen and do not enter if you have any COVID symptoms. Please call surgeon if you need to reschedule. - A mask is optional within the hospital at this time. Patients may have clear liquids (water, carbonated beverages, clear teas, apple juice) until 3 hours prior to surgery ( 6AM) with a maximum of 20 ounces. - No food from midnight until time of surgery and no smoking, or chewing tobacco (or any form of nicotine). No chewing gum, candy or mints. - Take only the following medications with a SIP of water on the morning of surgery: ____AMLODIPINE,LEVOTHYROXINE,METOPROLOL DO NOT STOP ANY OF YOUR OTHER PRESCRIPTION MEDICATIONS PRIOR TO SURGERY EXCEPT THE FOLLOWING Hold all vitamins and supplements for 3 days per anesthesiologist.LAST DOSE 11/28/24 Medications to discontinue per physician NONE Please no make-up, nail thai, hairspray, perfume, deodorant, or body powder the day of surgery.? No jewelry (including any body piercings) or valuables the day of surgery, leave them at home.? Please take a shower or bath the night before, or the morning of, surgery with an antibacterial soap.? Wear comfortable, loose fitting clothing.? Children are encouraged to wear pajamas. - Jewelry must be removed prior to entering the operating room.? Rings and piercings that are not removed may be cut off. - The hospital will not accept responsibility for valuables.? - Please leave all valuables, including medications, at home the day of surgery. If you are going home after surgery, a licensed school bus driver/teacher assistant must drive you home.? - NO public transportation without another adult if you receive anesthesia. - We recommend that an adult stay with you for 24 hours following discharge. - We also recommend that you do not drive, make important decision, drink alcoholic beverages, or take any drugs that were not prescribed by your health care provider for at least 24 hours after your discharge time. Follow any additional instructions given to you from your surgeon. Telephone instructions given to __PATIENT and asked if any additional questions and then verbalized understanding. Patient advised to call surgeon office or pre surgery nurse liaison [phone] if any additional questions.
[2024-11-21 14:39] VITALS: BMI 39.9
[2024-12-02] VITALS (8 sets, daily range): BP systolic 117–165; BP diastolic 58–83; PULSE 64–78; RESP 12–20; TEMP 36.3; O2SAT 94–100; BMI 42.4
--- OUTSIDE RECORDS SUMMARY | 2024-12-02 00:35 | XMS_ITS | Referral Summary ---
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
--- OUTSIDE RECORDS SUMMARY | 2024-12-02 00:35 | XMS_ITS | Clinical Summary ---
Author Organization [facility] Enochlinnvince aLma Address [address] [place] [address] Care Team Providers Care Molded Candles Wicker Name Role Phone Bobby Minor MD Primary [...] Description 01/03/2025 11:00 AM CDT Office Visit [facility] Oncology and Hematology - [address] [facility] [address] [place] [address] Ari Acosta MD [address] [facility] [address] [place] [address] Health Maintenance Due Date Last [...] 12/18/2020 Insurance MEDICARE PART A AND B [facility] Care Teams Molded Candles Wicker Relationship Specialty Start Date End Date Bobby Minor MD [address] [place] [address] PCP - General Internal Medicine 03/26/24
--- OUTSIDE RECORDS SUMMARY | 2024-12-02 00:35 | XMS_ITS | Clinical Summary ---
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 Gender Identity Not on file Sexual Orientation [...] Ended) 2025 07/20/2018, 04/07/2017, 05/01/2013 [place] [address] [facility] Member Subscriber Plan / Payer (Ef fective 2021-Present) Name:Carol Hatch [place] Relation to Subscriber:Spouse Name:Calvin Hatch Date of :1956 Address: [address] [place] [address] Payer ID:[id number] (NAIC) Group ID:[id number] Type:[employer] Address: [address] [place] [address] MEDICARE [facility] Member Subscriber Plan / Payer (Ef fective 2021-Present) Name:Carol Hatch Relation to Subscriber:Self Name:Carol Hatch Payer ID:[id number] (NAIC) Group ID:[id number] Type:[employer] Address: [address] [place] [address] [employer] BLUE ACCESS IN [facility] MEDICARE Care Teams Waiter/Waitress Bar Relationship Specialty Start Date End Date Bobby Minor MD [address] [place] [address] PCP - General Internal Medicine 12/25/20 Bobby Minor MD [address] [place] [address] Referring Physician Internal Medicine 05/31/24
--- NOTE | 2024-12-02 07:47 | WPDANESEPPF ---
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 Patient Data Age: 74 Gender: F Height: 1.65 m Weight: 115.6 kg Last Vital Signs Temp 36.3 C L 12/02/24 07:08 Pulse 65 12/02/24 07:08 Resp 16 12/02/24 07:08 BP 121/74 12/02/24 07:08 Pulse Ox 98 12/02/24 07:08 Allergies Allergy/AdvReac Type Severity Reaction Status Date / Time codeine Allergy Mild Shortness Verified 12/02/24 07:03 of breath quinapril AdvReac Mild Nausea Verified 12/02/24 07:03 rosuvastatin AdvReac Mild Gastrointestinal Verified 12/02/24 07:03 Upset simvastatin AdvReac Mild Gastrointestinal Verified 12/02/24 07:03 Upset Home Medications ?Medication ?Instructions ?Recorded ?Confirmed ?Type cholecalciferol (vitamin D3) 50 50 mcg PO DAILY 06/22/21 12/02/24 History mcg (2,000 unit) capsule triamterene 37.5 1 cap PO DAILY 06/22/21 12/02/24 History mg-hydrochlorothiazide 25 mg capsule metoprolol succinate 25 mg 25 mg PO BID 05/30/23 12/02/24 History tablet,extended release 24 hr amlodipine 5 mg tablet 5 mg PO DAILY 08/01/23 12/02/24 History losartan 50 mg tablet 50 mg PO BID 08/01/23 12/02/24 History esomeprazole magnesium 40 mg 40 mg PO QAM 03/05/24 12/02/24 History capsule,delayed release (Nexium) levothyroxine 125 mcg tablet 125 mcg PO QAM 03/05/24 12/02/24 History Patient hx anesthesia problems: none Family hx anesthesia problems: none Results Review: All pre-operative results and documents have been reviewed as part of the pre-operative evaluation. [facility] Past Medical History Medical History High cholesterol Hypertension, essential Thyroid disease History of carcinoma in situ of cervix Surgical History Surgical History History of arthroscopy of right knee History of ventral hernia repair x2 and both with mesh. 2016 in [place] and 2009 at . History of knee replacement procedure of right knee History of tonsillectomy History of hysterectomy 1978 Family History Family History Sibling Family history of malignant neoplasm Mother Carcinoma of colon Family history of malignant neoplasm of breast Hypertension Father Hypertension Peripheral vascular disease Sibling Ulcerative colitis Other Family history of allergic disorder Social History Social History Smoking packs per day: 2 Smoking cigarettes per day: 40.0 Years smoked: 35 Smoking pack-years: 70.00 Smoking status: Former smoker Tobacco type: cigarettes Smoking end date: 02/11/10 Alcohol intake: current Drinks per week: 5 Alcohol use details: Socially Substance use: never Substance use type: does not use Do You Feel Safe in your Home?: Yes Lack of Transportation: No Lack of Food: Never True Current Housing: I Have Housing Concerned About Future Housing: No Difficulty Paying Gas/Electric Bills: No Difficulty Paying for Meds: No Currently Unemployed: No Education: High School Diploma/GED Difficulty w/ Childcare or Family Care: No Living arrangements: with family Additional living arrangements comments: [facility] Spiritual care concerns: No Anes - Eval Final PreProcedure Day of Procedure 12/02/24 07:47 Patient weight: morbidly obese Heart: regular rate and rhythm Lungs: clear to auscultation Airway: Mallampati scale class II Neurological: alert and oriented Last oral intake: >/= 8 hours ASA classification: III Emergent: no Anesthetic plan: proceed Anesthesia type and monitoring: general ETT and standard monitoring Results Review: All pre-operative results and documents have been reviewed as part of the pre-operative evaluation. Informed Consent: The patient's anesthetic plan and its attendant risks and benefits were discussed with the patient/family/POA. Questions were solicited and answers provided to the satisfaction of the patient/family/POA.
[2024-12-02] MEDS: LACTATED RINGERS 1,000 ML 30 ML IV CONT (07:48)
--- NOTE | 2024-12-02 08:18 | PM.IMHP ---
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 2016 in [place] and 2009 at [place]. History of knee replacement procedure of right knee History of tonsillectomy History of hysterectomy 1977 Family History Family History Sibling Family history of malignant neoplasm Mother Carcinoma of colon Family history of malignant neoplasm of breast Hypertension Father Hypertension Peripheral vascular disease Sibling Ulcerative colitis Other Family history of allergic disorder Social History Social History Smoking packs per day: 2 Smoking cigarettes per day: 40.0 Years smoked: 35 Smoking pack-years: 70.00 Smoking status: Former smoker Tobacco type: cigarettes Smoking end date: 02/11/10 Alcohol intake: current Drinks per week: 5 Alcohol use details: Socially Substance use: never Substance use type: does not use Do You Feel Safe in your Home?: Yes Lack of Transportation: No Lack of Food: Never True Current Housing: I Have Housing Concerned About Future Housing: No Difficulty Paying Gas/Electric Bills: No Difficulty Paying for Meds: No Currently Unemployed: No Education: High School Diploma/GED Difficulty w/ Childcare or Family Care: No Living arrangements: with family Additional [facility] Spiritual care concerns: No Meds Home Medications and Allergies Home Medications ?Medication ?Instructions ?Recorded ?Confirmed ?Type cholecalciferol (vitamin D3) 50 50 mcg PO DAILY 06/22/21 12/02/24 History mcg (2,000 unit) capsule triamterene 37.5 1 cap PO DAILY 06/22/21 12/02/24 History mg-hydrochlorothiazide 25 mg capsule metoprolol succinate 25 mg 25 mg PO BID 05/30/23 12/02/24 History tablet,extended release 24 hr amlodipine 5 mg tablet 5 mg PO DAILY 08/01/23 12/02/24 History losartan 50 mg tablet 50 mg PO BID 08/01/23 12/02/24 History esomeprazole magnesium 40 mg 40 mg PO QAM 03/05/24 12/02/24 History capsule,delayed release (Nexium) levothyroxine 125 mcg tablet 125 mcg PO QAM 03/05/24 12/02/24 History Allergies Allergy/AdvReac Type Severity Reaction Status Date / Time codeine Allergy Mild Shortness Verified 12/02/24 07:03 of breath quinapril AdvReac Mild Nausea Verified 12/02/24 07:03 rosuvastatin AdvReac Mild Gastrointestinal Verified 12/02/24 07:03 Upset simvastatin AdvReac Mild Gastrointestinal Verified 12/02/24 07:03 Upset Vital Signs Vital Signs - 24 hr 12/02/24 07:08 Temperature 36.3 C L Pulse Rate 65 Respiratory Rate 16 Blood Pressure 121/74 Pulse Oximetry 98 Exam Narrative: right vocal nodule recurrence, rest of exam wnl Assessment and Plan Assessment and plan (1) Vocal cord mass: Code(s): J38.3 - Other diseases of vocal cords Status: Acute (2) Vocal cord polyps: Code(s): J38.1 - Polyp of vocal cord and larynx Status: Acute Plan 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 No XRT. Followed up in the clinic with concern for recurrence and is here today for direct laryngoscopy with biopsy. r/b/a reviewed, pt understands and agrees to proceed. Refer to outpt H&P for further detail.
--- NOTE | 2024-12-02 08:20 | WPDHPUPDATE1 ---
History and Physical Update Update Date/Time: 12/02/24 08:20 History and Physical has been reviewed, including an updated exam of the patient. There are NO changes in the patient's condition. Risks, benefits, and alternatives have been discussed and questions answered. Patient agrees to proceed with procedure.
--- NOTE | 2024-12-02 08:21 | P.OP_ITS ---
Procedure Note - Detailed Date of Procedure 12/02/24 Pre-op Diagnosis vocal cord polyp and vocal cord neoplasm Post-op Diagnosis Same Procedure Performed direct laryngoscopy with biopsy Surgeon Elieser Rick MD Anesthesia General Indications right vocal cord mass Findings broad lesion on right anterior 1/2 of vocal fold. Photos taken, biopsied. Description of Procedure On the date of surgery, the patient was identified in the preoperative holding area. All questions answered, consent signed and verified and they agreed to proceed. They were then brought to the OR and placed under general endotracheal anesthesia with a 6.5 sized endotracheal tube. A shoulder roll was placed. Timeout was performed verifying the correct patient identity and procedure to be performed which they were. The patient was then draped in standard fashion for direct laryngoscopy with biopsy. The bed was rotated 90 degrees counter-clockwise and a dental guard was placed to protect the upper teeth. A laryngoscope was then advanced in the oral cavity and upper airway to visualize all subsites of the oral cavity, oropharynx, hypopharynx and larynx. The only lesions noted were on the larynx. The patient was then suspended from the mae stand. Under endoscopic visualization, the right vocal fold mass was noted and photos taken. Using biopsy forceps, these lesions were removed with minimal damage to the healthy l aryngeal mucosa. Minimal bleeding occurred and did not require significant intervention for hemostasis. With all specimen removed, the procedure was concluded. The laryngoscope was removed, the dental guard removed, and the oral cavity was examined showing no injury to lips, gums, teeth or tongue. Care of the patient was returned to anesthesia who extubated the patient and transferred to the PACU for recovery in stable condition without complication. Estimated Blood Loss 0 Drains No Packing No Pathology Yes (right vocal cord mass) Complications No immediate complications Condition Stable Disposition PACU
[2024-12-02] MEDS: OXYMETAZOLINE HCL 0.05% NAS 15 ML BTL (*BKC) 1 SPRAY NASAL (09:00)
[2024-12-02] MEDS: fentaNYL CITRATE INJ (*CRX) 100 MCG/2 ML VIAL 25 MCG IV PUSH (09:31)
== END 2024-12-02 10:48 | disposition home or self-care (01) ==
PROVIDERS: PCP Internal Medicine; Visit Provider Otolaryngology
PROC: 0CJS8ZZ Inspection of Larynx, Via Natural or Artificial Opening Endoscopic (ICD-10-PCS; CPT 31535; principal; 2024-12-02 09:00)
DX: C32.0 Malignant neoplasm of glottis (principal); I10 Essential (primary) hypertension; E78.00 Pure hypercholesterolemia, unspecified; E07.9 Disorder of thyroid, unspecified; E66.01 Morbid (severe) obesity due to excess calories; Z68.41 Body mass index [BMI] 40.0-44.9, adult; Z98.890 Other specified postprocedural states; Z87.891 Personal history of nicotine dependence; Z86.001 Personal history of in-situ neoplasm of cervix uteri; Z80.3 Family history of malignant neoplasm of breast; Z80.0 Family history of malignant neoplasm of digestive organs
CPT/HCPCS: 31535; 88305; A9270; J1100; J2003; J2250; J2405; J3010; J7120

== ENCOUNTER 2025-01-31 07:21 | Outpatient (CLI) | payer MEDICARE, SELFPAY ==
--- OUTSIDE RECORDS SUMMARY | 2025-01-31 07:26 | XMS_ITS | Referral Summary ---
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
--- OUTSIDE RECORDS SUMMARY | 2025-01-31 07:26 | XMS_ITS | Encounter Summary ---
Author Organization [facility] Address [address] [facility] [place] [address] Phone Care Team Providers Care Supervising Chef Name Role Phone Elieser Rick MD Unavailable [phone] Dave Ramos MD Unavailable [phone] Bobby Minor MD Primary Care Provider [phone] Juan Ramon Ferris MD Unavailable [phone] Encounter Details Date Type Department Care Team (Late st Contact Info) Description 01/15/2025 Documentation Only [facility] Oncology Services [address] [place] [address] Dave Ramos MD [address] [place] [address] Social History Tobacco Use Types Packs/Day Years Used Date Smoking Tobacco: Former Cigarettes 2 42 1 08/14/1967 - 2010 Smokeless Tobacco: Never Comments:She started smoking when she was 18 years old and quit around 2009. While she did not smoke continuously she smoked most of those years and when she smoked averaged 2 packs/day. 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 B: Home Diet: general Home oral supplement: none (did provide Ensure samples & coupons, to try) Nutrition Impact Symptoms: none, at this time Medical History: hyperthyroid, anxiety, GERD, HTN, HH, Rt TKR Medications: nexium, BP meds Vitamins: Vitamin D3 Labs: -creatinine=0.9 Initial Wt: 259# 11oz -01/13/2025 Height: 5' 4 BMI: 44.50 Adjusted BW: 155#/70kg EMR wt hx: 258# -12/25/2024 ([facility]) 241# -05/31/2024 [facility] cardio[facility]) Wt history: wt increases, pt reports %Wt Loss: 0% Estimated needs:(based on 70kg) Calories: 4490-5238 calories (25-30kcal/kg) Protein: 84-105gm (1.2-1.5gm/kg) Fluids: 1800-2100ml A: Pt at high nutrition risk per current assessment; Reports being a nervous eater & has gained a significant amount of wt since initial Dx; Discouraged strict wt loss during Tx; discussed ways to reduce foods eaten, that are high in refined sugars & fats; Drinks water well throughout the day (4, 12oz bottles-48oz), encouraged 5 bottles/day for minimum of 60oz H2O/day; Typically has dry oral cavity, discussed strategies to decrease oral dryness & increased hydration should also help; Nutrition information provided: Nutrition During Radiotherapy, Dealing with Sore or Dry Mouth/Throat, Tips for Increasing PRO/Calories, Recipes for Smoothies & Milkshakes; Goal: weight maintenance within 6% (or 16#) throughout treatment. BRITTANY ARAIZA RD; 01/15/2025,10:18 AM CDT documented in this encounter Plan of Treatment Upcoming Encounters Date Type Department Care Team (Late st Contact Info) Description 01/31/2025 9:45 AM CDT Clinical Support [facility] Oncology Services [address] [place] [phone] Dave Ramos MD [address] [place] [address] 02/03/2025 9:45 AM CDT Clinical Support [facility] Oncology Services [address] [place] [phone] Dave Ramos MD [address] [place], [place] [phone] 02/03/2025 10:00 AM CDT Office Visit [facility] Oncology Services [address] [place] [phone] Dave Ramos MD [address] [place] [address] Shaw Maynard MD [address] [place] [address] 02/04/2025 9:45 AM CDT Clinical Support [facility] Oncology Services [address] [place] [phone] Dave Ramos MD [address] [place] [address] 02/05/2025 9:45 AM CDT Clinical Support [facility] Oncology Services [address] [place] [phone] Dave Ramos MD [address] [place] [address] 02/06/2025 9:45 AM CDT Clinical Support [facility] Oncology Services [address] [place] [phone] Dave Ramos MD [address] [place] [address] 02/07/2025 9:45 AM CDT Clinical Support [facility] Oncology Services [address] [place] [phone] Dave Ramos MD [address] [place] [address] 02/10/2025 9:45 AM CDT Clinical Support [facility] Oncology Services [address] [place] [place] [phone] Dave Ramos MD [address] [place] [address] 02/10/2025 10:00 AM CDT Office Visit [facility] Oncology Services [address] [place] [phone] Dave Ramos MD [address] [place] [address] 02/11/2025 9:45 AM CDT Clinical Support [facility] Oncology Services [address] [phone] Dave Ramos MD [address] [place] [address] 02/12/2025 9:45 AM CDT Clinical Support [facility] Oncology Services [address] [place] [phone] Dave Ramos MD [address] [place] [address] 02/13/2025 9:45 AM CDT Clinical Support [facility] Oncology Services [address] [phone] Dave Ramos MD [address] [place] [address] 02/17/2025 9:45 AM CDT Clinical Support [facility] Oncology Services [address] [place] [phone] Dave Ramos MD [address] [place] [address] 02/17/2025 10:00 AM CDT Office Visit [facility] Oncology Services [address] [place] [phone] Dave Ramos MD [address] [place] [address] Shaw Maynard MD [address] [place] [address] 02/18/2025 9:45 AM CDT Clinical Support [facility] Oncology Services [address] [place] [phone] Dave Ramos MD [address] [place] [address] 02/19/2025 9:45 AM CDT Clinical Support [facility] Oncology Services [address] [place] [phone] Dave Ramos MD [address] [place] [address] 02/20/2025 9:45 AM CDT Clinical Support [facility] Oncology Services [address] [place] [phone] Dave Ramos MD [address] [place] [address] documented as of this encounter Visit Diagnoses Not on filedocumented in this encounter Care Teams Supervising Chef Relationship Specialty Start Date End Date Bobby Minor MD [address] [place] [address] PCP - General Internal Medicine 12/25/24 Elieser Rick MD [address] [place] [phone] Consulting Physician Otolaryngology 12/24/24 Dave Ramos MD [address] [place] [address] Consulting Physician Radiation Oncology 12/24/24 [place] [address] [place] [address] Consulting Physician Otolaryngology 12/25/24 documented as of this encounter
--- OUTSIDE RECORDS SUMMARY | 2025-01-31 07:26 | XMS_ITS ---
Author Organization [facility] Address [address] [place] [address] Phone Care Team Providers Care Patient Safety Manager Name Role Phone Elieser Rick MD Unavailable [phone] Dave Ramos MD Unavailable [phone] Bobby Minor MD Primary Care Provider [phone] Juan Ramon Ferris MD Unavailable [phone] Active Problems Problem Noted Date Diagnosed Date Glottis carcinoma 12/25/2024 Cancer Staging:Clinical stage from 03/11/2024:Stage I(cT1a, cN0, cM0) - Signed by Dave Ramos MD on 12/25/2024 History of nonmelanoma skin cancer 12/25/2024 Overview (12/25/2024): Basal cell carcinomas of the face and squamous cell carcinoma of the back. Current Treatment and Therapy Plans No current plan information found. Past Treatment and Therapy Plans No past plan information found. Current Radiation Episodes * 3D COMPUTER INSTALLATION ENGINEER: Bilateral GlottisOverview* First Treatment Date Latest Treatment Date Treatment Site Technique Goal Episode Provider 01/13/2025 01/30/2025 Bilateral Glottis 3D COMPUTER INSTALLATION ENGINEER Curative * Linked Problems Treatment Courses* Course C1 01/13/2025 - 01/30/2025 Treatment Period Fraction Dose Fractions Total Dose Plans Planned Plan_Glottis_PTV [Glottis_Revis] 01/15/2025 - 01/30/2025 225 cGy 5,850 cG y [id number] 01/13/2025 - 01/14/2025 225 cGy 6,300 cGy Reference Points Delivered Glottis_PRP 01/13/2025 - 01/30/2025 3,150 cGy
--- OUTSIDE RECORDS SUMMARY | 2025-01-31 07:26 | XMS_ITS | Encounter Summary ---
Author Organization [facility] Care Team Providers Care Lens Molder Name Role Phone Elieser Rick MD Unavailable [phone] Dave Ramos MD Unavailable [phone] Bobby Minor MD Primary Care Provider [phone] Juan Ramon Ferris MD Unavailable [phone] Encounter Details Date Type Department Care Team (Latest Contact Info) Description 01/30/2025 Travel Social History Tobacco Use Types Packs/Day Years [...] as of this encounter Plan of Treatment Upcoming Encounters Date Type Department Care Team (Late st Contact Info) Description 01/31/2025 9:45 AM CDT Clinical Support [facility] Oncology Services [address] [place] [phone] Dave Ramos MD [address] [place] [address] 02/03/2025 9:45 AM CDT Clinical Support [facility] Oncology Services [address] [place] [phone] Dave Ramos MD [address] [place] [address] 02/03/2025 10:00 AM CDT Office Visit [facility] Oncology Services [address] [place] [phone] Dave Ramos MD [address] [place] [address] Shaw Maynard MD [address] [place] [address] 02/04/2025 9:45 AM CDT Clinical Support [facility] Oncology Services [address] [place] [phone] Dave Ramos MD [address] [place] [address] 02/05/2025 9:45 AM CDT Clinical Support [facility] Oncology Services [address] [place] [phone] Dave Ramos MD [address] [place] [address] 02/06/2025 9:45 AM CDT Clinical Support [facility] Oncology Services [address] [place] [phone] Dave Ramos MD [address] [place] [address] 02/07/2025 9:45 AM CDT Clinical Support [facility] Oncology Services [address] [place] [phone] Dave Ramos MD [address] [place] [address] 02/10/2025 9:45 AM CDT Clinical Support [facility] Oncology Services [address] [place] [phone] Dave Ramos MD [address] [place] [address] 02/10/2025 10:00 AM CDT Office Visit [facility] Oncology Services [address] [place] [phone] Dave Ramos MD [address] [place] [address] 02/11/2025 9:45 AM CDT Clinical Support [facility] Oncology Services [address] [place] [phone] Dave Ramos MD [address] [place] [address] 02/12/2025 9:45 AM CDT Clinical Support [facility] Oncology Services [address] [place] [phone] Dave Ramos MD [address] [place] [address] 02/13/2025 9:45 AM CDT Clinical Support [facility] Oncology Services [address] [place] [phone] Dave Ramos MD [address] [place] [address] 02/17/2025 9:45 AM CDT Clinical Support [facility] Oncology Services [address] [place] [phone] Dave Ramos MD [address] [place] [address] 02/17/2025 10:00 AM CDT Office Visit [facility] Oncology Services [address] [place] [phone] Dave Ramos MD [address] [place] [address] Shaw Maynard MD [address] [place] [address] 02/18/2025 9:45 AM CDT Clinical Support [facility] Oncology Services [address] [place] [phone] Dave Ramos MD [address] [place] [address] 02/19/2025 9:45 AM CDT Clinical Support [facility] Oncology Services [address] [place] [phone] Dave Ramos MD [address] [place] [address] 02/20/2025 9:45 AM CDT Clinical Support [facility] Oncology Services [address] [place] [phone] Dave Ramos MD [address] [place] [address] documented as of this encounter Visit Diagnoses Not on filedocumented in this encounter Care Teams Lens Molder Relationship Specialty Start Date End Date Bobby Minor MD [address] [place] [address] PCP - General Internal Medicine 12/25/24 Elieser Rick MD [facility] [place] [address] Consulting Physician Otolaryngology 12/24/24 Dave Ramos MD [address] [place] [address] Consulting Physician Radiation Oncology 12/24/24 Juan Ramon Ferris MD [address] [place] [address] Consulting Physician Otolaryngology 12/25/24 documented as of this encounter
--- OUTSIDE RECORDS SUMMARY | 2025-01-31 07:26 | XMS_ITS | Encounter Summary ---
Author Organization [facility] Address [address] [facility] [place] [address] Phone Care Team Providers Care Stained Glass Glazier Name Role Phone Elieser Rick MD Unavailable [phone] Dave Ramos MD Unavailable [phone] Bobby Minor MD Primary Care Provider [phone] Juan Ramon Ferris MD Unavailable [phone] Encounter Details Date Type Department Care Team (Latest Contact Info) Description 01/30/2025 9:45 AM CDT Clinical Support [facility] Oncology Services [address] [place] [phone] Dave Ramos MD [address] [place] [address] Discharge Disposition: Discharged to home or Selfcare Social History Tobacco Use Types Packs/Day Years [...] Description 01/31/2025 9:45 AM CDT Clinical Support [facility] Oncology Services [address] [place] [phone] Dave Ramos MD [address] [place] [address] 02/03/2025 9:45 AM CDT Clinical Support [facility] Oncology Services [address] [place] [phone] Dave Ramos MD [address] [place] [address] 02/03/2025 10:00 AM CDT Office Visit [facility] Oncology Services [address] [place] [phone] Dave Ramos MD [address] [place] [address] Shaw Maynard MD [address] [place] [address] 02/04/2025 9:45 AM CDT Clinical Support [facility] Oncology Services [address] [place] [phone] Dave Ramos MD [address] [place] [address] 02/05/2025 9:45 AM CDT Clinical Support [facility] Oncology Services [address] [place] [phone] Dave Ramos MD [address] [place] [address] 02/06/2025 9:45 AM CDT Clinical Support [facility] Oncology Services [address] [place] [phone] Dave Ramos MD [address] [place] [address] 02/07/2025 9:45 AM CDT Clinical Support [facility] Oncology Services [address] [place] [phone] Dave Ramos MD [address] [place] [address] 02/10/2025 9:45 AM CDT Clinical Support [facility] Oncology Services [address] [place] [phone] Dave Ramos MD [address] [place] [address] 02/10/2025 10:00 AM CDT Office Visit [facility] Oncology Services [address] [place] [phone] Dave Ramos MD [address] [place] [address] 02/11/2025 9:45 AM CDT Clinical Support [facility] Oncology Services [address] [place] [phone] Dave Ramos MD [address] [place] [address] 02/12/2025 9:45 AM CDT Clinical Support [facility] Oncology Services [address] [place] [phone] Dave Ramos MD [address] [place] [address] 02/13/2025 9:45 AM CDT Clinical Support [facility] Oncology Services [address] [place] [phone] Dave Ramos MD [address] [place] [address] 02/17/2025 9:45 AM CDT Clinical Support [facility] Oncology Services [address] [place] [phone] Dave Ramos MD [address] [place] [address] 02/17/2025 10:00 AM CDT Office Visit [facility] Oncology Services [address] [place] [phone] Dave Ramos MD [address] [place] [address] Shaw Maynard MD [address] [place] [phone] 02/18/2025 9:45 AM CDT Clinical Support [facility] Oncology Services [address] [place] [phone] Dave Ramos MD [address] [place] [address] 02/19/2025 9:45 AM CDT Clinical Support [facility] Oncology Services [address] [place] [phone] Dave Ramos MD [address] [place] [address] 02/20/2025 9:45 AM CDT Clinical Support [facility] Oncology Services [address] [place] [phone] Dave Ramos MD [address] [place] [address] documented as of this encounter Procedures Procedure Name Priority Date/Time Associated Diagnosis Comments RAD ONC ARIA SESSION SUMMARY Routine 01/30/2025 9:54 AM CDT documented in this encounter Results * RAD ONC ARIA SESSION SUMMARY (01/30/2025 9:54 AM CDT) Course ID C1 ARIA RO MODEL Course Intent Curative ARIA RO MODEL Course Start Date 12/25/2024 1:04 PM ARIA RO MODEL Session Number 14 ARIA RO MODEL Course End Date 01/13/2025 9:35 AM ARIA RO MODEL Course Last Treatment Date 01/30/2025 9:53 AM ARIA RO MODEL Course Elapsed Days 17 ARIA RO MODEL Reference Point ID Glottis_PRP ARIA RO MODEL Reference Point Dosage Given to Date 31.5 Gy ARIA RO MODEL Reference Point Session Dosage Given 2.25 Gy ARIA RO MODEL Plan ID Glottis_Revi s ARIA RO MODEL Plan Name Plan_Glottis _PTV ARIA RO MODEL Energy 6X ARIA RO MODEL Plan Fractions Treated to Date 12 ARIA RO MODEL Plan Total Fractions Prescribed 26 ARIA RO MODEL Plan Prescribed Dose Per Fraction 2.25 Gy ARIA RO MODEL Plan Total Prescribed Dose 5,850 cGy ARIA RO MODEL Plan Primary Reference Point Glottis_PRP ARIA RO MODEL 01/30/2025 9:54 AM CDT us Unknown Provider RADIATION ONCOLOGY ORDERABLES F inal Result KJ ROCK MODEL [address] [place] [address] documented in this encounter Visit Diagnoses Not on filedocumented in this encounter Care Teams Stained Glass Glazier Relationship Specialty Start Date End Date Bobby Minor MD [address] [place] [address] PCP - General Internal Medicine 12/25/24 Elieser Rick MD [facility] [place] [address] Consulting Physician Otolaryngology 12/24/24 Dave Ramos MD [address] [place] [address] Consulting Physician Radiation Oncology 12/24/24 Juan Ramon Ferris MD [address] [place] [address] Consulting Physician Otolaryngology 12/25/24 documented as of this encounter
--- OUTSIDE RECORDS SUMMARY | 2025-01-31 07:26 | XMS_ITS | Clinical Summary ---
Author Organization [facility] Address [address] [place] [address] Phone Care Team Providers Care Slab Off Mill Tender Name Role Phone Elieser Rick MD Unavailable [phone] Dave Ramos MD Unavailable [phone] Bobby Minor MD Primary Care Provider [phone] Juan Ramon Ferris MD Unavailable [phone] Allergies Active Allergy Reactions Criticality Noted Date Comments Codeine Anaphylaxis High 03/26/2024 Medications amLODIPine (NORVASC) 5 MG Tablet Take 5 mg by mouth daily. Active Cholecalciferol (D2000 Ultra Strength) 2000 UNIT Capsule Take 2,000 Units by mouth daily. Active levothyroxine (SYNTHROID) 125 MCG Tablet Take 125 mcg by mouth daily. Active losartan (COZAAR) 100 MG Tablet Take 100 mg by mouth daily. Active metoprolol tartrate (LOPRESSOR) 25 MG Tablet Take 25 mg by mouth 2 times daily. Active triamterene-hydroch lorothiazide (MAXZIDE) 37.5-25 MG Tablet Take 1 Tablet by mouth daily. Active LORATADINE PO Take by mouth daily. Active Esomeprazole Magnesium (NEXIUM PO) Take by mouth daily. Active aluminum & magnesium hydroxide-simethico ne 200-200-20 MG/5ML SUSP 30 mL, diphenhydrAMINE 12.5 MG/5ML LIQD 75 mg, Lidocaine Viscous HCl 2 % SOLN 30 mLIndications:Encou nter for radiotherapy,Radiat ion esophagitis 15 mL by Swish & Swallow route every 4 hours as needed (sore throat). for mouth/throat discomfort. 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 Encounters Date Type Department Care Team Description 01/30/2025 9:45 AM CDT Clinical Support [facility] [address] [place] [phone] Dave Ramos MD Discharge Disposition: Discharged to home or Selfcare 01/30/2025 Travel 01/29/2025 9:45 AM CDT Clinical Support [facility] [address] [place] [phone] Dave Ramos MD Discharge Disposition: Discharged to home or Selfcare 01/29/2025 Travel 01/28/2025 9:45 AM CDT Clinical Support [facility] [address] [place] [phone] Dave Ramos MD Discharge Disposition: Discharged to home or Selfcare 01/28/2025 Travel 01/27/2025 10:00 AM CDT Office Visit [facility] [address] [place] [phone] Dave Ramos MD Encounter for radiotherapy (Primary Dx); Glottis carcinoma (HCC); Radiation esophagitis; Adverse effect of radiation, initial encounter Discharge Disposition: Discharged to home or Selfcare 01/27/2025 9:45 AM CDT Clinical Support [facility] [address] [place] [phone] Dave Ramos MD Discharge Disposition: Discharged to home or Selfcare 01/27/2025 Travel 01/24/2025 9:45 AM CDT Clinical Support [facility] [address] [place] [phone] Dave Ramos MD Discharge Disposition: Discharged to home or Selfcare 01/24/2025 Travel 01/23/2025 9:45 AM CDT Clinical Support [facility] [address] [place] [phone] Dave Ramos MD Discharge Disposition: Discharged to home or Selfcare 01/23/2025 Travel 01/22/2025 9:45 AM CDT Clinical Support [facility] [address] [place] [phone] Dave Ramos MD Discharge Disposition: Discharged to home or Selfcare 01/22/2025 Documentation Only [facility] [address] [place] [phone] Dave Ramos MD 01/22/2025 Travel 01/21/2025 9:45 AM CDT Clinical Support [facility] [address] [place] [phone] Dave Ramos MD Discharge Disposition: Discharged to home or Selfcare 01/21/2025 Travel 01/20/2025 10:00 AM CDT Office Visit [facility] [address] [place] [phone] Dave Ramos MD Encounter for radiotherapy (Primary Dx); Glottis carcinoma (HCC) Discharge Disposition: Discharged to home or Selfcare 01/20/2025 9:45 AM CDT Clinical Support [facility] [address] [place] [phone] Dave Ramos MD Discharge Disposition: Discharged to home or Selfcare 01/20/2025 Travel 01/19/2025 Travel 01/17/2025 9:30 AM CDT Clinical Support [facility] [address] [place] [phone] Dave Ramos MD Discharge Disposition: Discharged to home or Selfcare 01/17/2025 Travel 01/16/2025 9:30 AM CDT Clinical Support [facility] [address] [place] [phone] Dave Ramos MD Discharge Disposition: Discharged to home or Selfcare 01/16/2025 Travel 01/15/2025 9:30 AM CDT Clinical Support [facility] [address] [place] [phone] Dave Ramos MD Encounter for radiotherapy (Primary Dx); Glottis carcinoma (HCC) Discharge Disposition: Discharged to home or Selfcare 01/15/2025 Documentation Only [facility] [address] [place] [phone] Dave Ramos MD 01/15/2025 Travel 01/14/2025 9:30 AM CDT Clinical Support [facility] [address] [place] [phone] Dave Ramos MD Encounter for radiotherapy (Primary Dx); Glottis carcinoma (HCC) Discharge Disposition: Discharged to home or Selfcare 01/14/2025 Travel 01/13/2025 10:00 AM CDT [facility] [address] [place] [address] Dave Ramos MD Encounter for radiotherapy (Primary Dx); Glottis carcinoma (HCC) Discharge Disposition: Discharged to home or Selfcare 01/13/2025 9:30 AM CDT Clinical Support [facility] [address] [place] [phone] Dave Ramos MD Encounter for radiotherapy (Primary Dx); Glottis carcinoma (HCC) Discharge Disposition: Discharged to home or Selfcare 01/13/2025 Travel 01/12/2025 Travel 01/11/2025 Travel 01/10/2025 Non-Scheduled Office Visit [facility] [address] [place] [address] Dave Ramos MD Glottis carcinoma (HCC) (Primary Dx) 01/02/2025 10:15 AM CDT Ancillary Procedure [facility] [address] [place] [phone] Dave Ramos MD Encounter for radiotherapy (Primary Dx); Glottis carcinoma (HCC) Discharge Disposition: Discharged to home or Selfcare 12/31/2024 2:24 PM CDT - 12/31/2024 11:59 PM CDT Hospital Encounter [facility] [address] [place] [phone] Dave Ramos MD Discharge Disposition: Discharged to home or Selfcare 12/31/2024 Travel 12/25/2024 9:30 AM CDT Initial Consult [facility] [address] [place] [phone] Dave Ramos MD Glottis carcinoma (HCC) (Primary Dx); 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); History of nonmelanoma skin cancer Discharge Disposition: Discharged to home or Selfcare 12/25/2024 [facility]phone [facility] [address] [place] [phone] Dave Ramos MD 12/25/2024 Travel 12/17/2024 3:18 PM CDT - 12/17/2024 11:59 PM CDT [facility] [address] [place] [phone] Provider, Not On File Discharge Disposition: Discharged to home or Selfcare 12/17/2024 3:17 PM CDT Hospital [facility] [address] [place] [address] Provider, Not On File Discharge Disposition: Discharged to home or Selfcare 12/17/2024 3:16 PM CDT Hospital En[facility] [address] [place] [address] Provider, Not On File Discharge Disposition: Discharged to home or Selfcare from Last 3 Months Family History Medical History Relation Name Comments Cancer Brother Unknown Heart Disease Father Breast Cancer Maternal Aunt Diabetes Maternal Grandmother Colon Cancer Mother Passed from col on cancer age 74 years. Breast Cancer Sister Relation Name Status Comments Brother Father Maternal Aunt Alive Maternal Grandmother Mother Sister Alive Social History Tobacco Use Types Packs/Day [...] Sign Reading Time Taken Comments Blood Pressure 132/81 01/27/2025 9:54 AM CDT Pulse 69 01/27/2025 9:54 AM CDT Temperature 36.8 C (98.2 F) 01/27/2025 9:54 AM CDT Respiratory Rate 16 01/27/2025 9:54 AM CDT Oxygen Saturation 96% 01/27/2025 9:54 AM CDT Inhaled Oxygen Concentration - - Weight 116.9 kg (257 lb 11.2 oz) 01/27/2025 9:54 AM CDT Height 162.6 cm (5' 4) 01/20/2025 10:1 5 AM CDT Body Mass Index 44.23 01/20/2025 10:15 AM CDT Plan of Treatment Upcoming Encounters Date Type Department Care Team (Late st Contact Info) Description 01/31/2025 9:45 AM CDT Clinical Support [facility] [address] [place] [phone] Dave Ramos MD [address] [place] [address] 02/03/2025 9:45 AM CDT Clinical Support [facility] [address] [place] [phone] Dave Ramos MD [address] [place] [address] 02/03/2025 10:00 AM CDT Office Visit [facility] [address] [place] [phone] Dave Ramos MD [address] [place] [address] Shaw Maynard MD [address] [place] [address] 02/04/2025 9:45 AM CDT Clinical Support [facility] [address] [place] [phone] Dave Ramos MD [address] [place] [address] 02/05/2025 9:45 AM CDT Clinical Support [facility] [address] [place] [phone] Dave Ramos MD [address] [place] [address] 02/06/2025 9:45 AM CDT Clinical Support [facility] [address] [place] [phone] Dave Ramos MD [address] [place] [address] 02/07/2025 9:45 AM CDT Clinical Support [facility] [address] [place] [phone] Dave Ramos MD [address] [place] [address] 02/10/2025 9:45 AM CDT Clinical Support [facility] [address] [place] [phone] Dave Ramos MD [address] [place] [address] 02/10/2025 10:00 AM CDT Office Visit [facility] [address] [place] [phone] Dave Ramos MD [address] [place] [address] 02/11/2025 9:45 AM CDT Clinical Support [facility] [address] [place] [phone] Dave Ramos MD [address] [place] [address] 02/12/2025 9:45 AM CDT Clinical Support [facility] [address] [place] [phone] Dave Ramos MD [address] [place] [address] 02/13/2025 9:45 AM CDT Clinical Support [facility] [address] [place] [phone] Dave Ramos MD [address] [place] [address] 02/17/2025 9:45 AM CDT Clinical Support [facility] [address] [place] [phone] Dave Ramos MD [address] [place] [address] 02/17/2025 10:00 AM CDT Office Visit [facility] [address] [place] [phone] Dave Ramos MD [address] [place] [address] Shaw Maynard MD [address] [place] [address] 02/18/2025 9:45 AM CDT Clinical Support [facility] [address] [place] [phone] Dave Ramos MD [address] [place] [address] 02/19/2025 9:45 AM CDT Clinical Support [facility] [address] [place] [phone] Dave Ramos MD [address] [place] [address] 02/20/2025 9:45 AM CDT Clinical Support [facility] [address] [place] [phone] Dave Ramos MD [address] [place] [address] Health Maintenance Due Date Last Done Comments DEXA Bone Density 1950 Hepatitis C Virus (HCV) Screening 1950 Mammogram 1950 TdaP Immunization 1950 Cologuard 1997 Colonoscopy 1997 Colorectal Cancer Screening 1997 Immunochemical Fecal Occult Blood 1997 Zoster Immunization (2 of 2) 06/27/2019 05/02/2019, 09/05/2012 Pneumococcal Immunization (50+ years) (3 of 3 - PPSV23, PCV20 or PCV21) 09/22/2019 01/13/2015, 09/22/2014 SARS-COV-2 Immunization (8 - Moderna risk season) 2024 04/25/2024, 06/20/2023, 01/18/2023, Additional history exists Lung Cancer Screening 05/31/2025 05/31/2024 , 05/31/2024, 05/12/2023, Additional history exists Respiratory Syncytial Virus (RSV) Immunization (Adult) Completed 07/03/2023 Influenza Immunization Completed , 06/27/2023, 06/09/2022, Additional history exists Hepatitis B Immunization Aged Out No longer eligible based on patient's age to complete this topic Human Papillomavirus (HPV) Immunization Aged Out No longer eligible based on patient's age to complete this topic Meningococcal Immunization (ACWY) Aged Out No longer eligible based on patient's age to complete this topic Rotavirus Immunization Aged Out No lo nger eligible based on patient's age to complete this topic Procedures Procedure Name Priority Date/Time Associated Diagnosis Comments RAD ONC ARIA SESSION SUMMARY Routine 01/30/2025 9:54 AM CDT RAD ONC ARIA SESSION SUMMARY Routine 01/29/2025 9:56 AM CDT RAD ONC ARIA SESSION SUMMARY Routine 01/28/2025 9:49 AM CDT RAD ONC ARIA SESSION SUMMARY Routine 01/27/2025 9:44 AM CDT RAD ONC ARIA SESSION SUMMARY Routine 01/24/2025 9:42 AM CDT RAD ONC ARIA SESSION SUMMARY Routine 01/23/2025 9:50 AM CDT RAD ONC ARIA SESSION SUMMARY Routine 01/22/2025 9:50 AM CDT RAD ONC ARIA SESSION SUMMARY Routine 01/21/2025 9:48 AM CDT RAD ONC ARIA SESSION SUMMARY Routine 01/20/2025 9:57 AM CDT RAD ONC ARIA SESSION SUMMARY Routine 01/17/2025 9:32 AM CDT RAD ONC ARIA SESSION SUMMARY Routine 01/16/2025 9:58 AM CDT RAD ONC ARIA SESSION SUMMARY Routine 01/15/2025 9:39 AM CDT Encounter for radiotherapy Glottis carcinoma (HCC) RAD ONC ARIA SESSION SUMMARY Routine 01/14/2025 9:35 AM CDT Encounter for radiotherapy Glottis carcinoma (HCC) RAD ONC ARIA SESSION SUMMARY Routine 01/13/2025 9:42 AM CDT Encounter for radiotherapy CT SOFT TISSUE NECK W CONTRAST Routine 12/31/2024 4:08 PM CDT Glottis carcinoma (HCC) POCT CREATININE Routine 12/31/2024 3:[address] REFERENCE IMAGES FOR IMAGE IMPORT Routine 12/17/2024 3:[address] REFERENCE IMAGES FOR IMAGE IMPORT Routine 12/17/2024 3:17 PM CDT MR REFERENCE IMAGES FOR IMAGE IMPORT Routine 12/17/2024 3:16 PM CDT from Last 3 Months Results * RAD ONC ARIA SESSION SUMMARY [...] Provider RADIATION ONCOLOGY ORDERABLES F inal Result Performing Organization Address [facility] Co de Phone Number ARIA RO MODEL [address] [place] [address] * RAD ONC ARIA SESSION SUMMARY (01/29/2025 9:56 AM CDT) Course ID C1 ARIA RO MODEL Course Intent Curative ARIA RO MODEL Course Start Date 12/25/2024 1:04 PM ARIA RO MODEL Session Number 13 ARIA RO MODEL Course End Date 01/13/2025 9:35 AM ARIA RO MODEL Course Last Treatment Date 01/29/2025 9:55 AM ARIA RO MODEL Course Elapsed Days 16 ARIA RO MODEL Reference Point ID Glottis_PRP ARIA RO MODEL Reference Point Dosage Given to Date 29.25 Gy ARIA RO MODEL Reference Point Session Dosage Given 2.25 Gy ARIA RO MODEL Plan ID Glottis_Revi s ARIA RO MODEL Plan Name Plan_Glottis _PTV ARIA RO MODEL Energy 6X ARIA RO MODEL Plan Fractions Treated to Date 11 ARIA RO MODEL Plan Total Fractions Prescribed 26 ARIA RO MODEL Plan Prescribed Dose Per Fraction 2.25 Gy ARIA RO MODEL Plan Total Prescribed Dose 5,850 cGy ARIA RO MODEL Plan Primary Reference Point Glottis_PRP ARIA RO MODEL 01/29/2025 9:56 AM CDT us Unknown Provider RADIATION ONCOLOGY ORDERABLES F inal Result Performing Organization Address [facility] Co de Phone Number ARIA RO MODEL [address] [place] [address] * RAD ONC ARIA SESSION SUMMARY (01/28/2025 9:49 AM CDT) Course ID C1 ARIA RO MODEL Course Intent Curative ARIA RO MODEL Course Start Date 12/25/2024 1:04 PM ARIA RO MODEL Session Number 12 ARIA RO MODEL Course End Date 01/13/2025 9:35 AM ARIA RO MODEL Course Last Treatment Date 01/28/2025 9:49 AM ARIA RO MODEL Course Elapsed Days 15 ARIA RO MODEL Reference Point ID Glottis_PRP ARIA RO MODEL Reference Point Dosage Given to Date 27 Gy ARIA RO MODEL Reference Point Session Dosage Given 2.25 Gy ARIA RO MODEL Plan ID Glottis_Revi s ARIA RO MODEL Plan Name Plan_Glottis _PTV ARIA RO MODEL Energy 6X ARIA RO MODEL Plan Fractions Treated to Date 10 ARIA RO MODEL Plan Total Fractions Prescribed 26 ARIA RO MODEL Plan Prescribed Dose Per Fraction 2.25 Gy ARIA RO MODEL Plan Total Prescribed Dose 5,850 cGy ARIA RO MODEL Plan Primary Reference Point Glottis_PRP ARIA RO MODEL 01/28/2025 9:49 AM CDT us Unknown Provider RADIATION ONCOLOGY ORDERABLES F inal Result Performing Organization Address [facility] Co de Phone Number ARIA RO MODEL [address] [place] [address] * RAD ONC ARIA SESSION SUMMARY (01/27/2025 9:44 AM CDT) Course ID C1 ARIA RO MODEL Course Intent Curative ARIA RO MODEL Course Start Date 12/25/2024 1:04 PM ARIA RO MODEL Session Number 11 ARIA RO MODEL Course End Date 01/13/2025 9:35 AM ARIA RO MODEL Course Last Treatment Date 01/27/2025 9:45 AM ARIA RO MODEL Course Elapsed Days 14 ARIA RO MODEL Reference Point ID Glottis_PRP ARIA RO MODEL Reference Point Dosage Given to Date 24.75 Gy ARIA RO MODEL Reference Point Session Dosage Given 2.25 Gy ARIA RO MODEL Plan ID Glottis_Revi s ARIA RO MODEL Plan Name Plan_Glottis _PTV ARIA RO MODEL Energy 6X ARIA RO MODEL Plan Fractions Treated to Date 9 ARIA RO MODEL Plan Total Fractions Prescribed 26 ARIA RO MODEL Plan Prescribed Dose Per Fraction 2.25 Gy ARIA RO MODEL Plan Total Prescribed Dose 5,850 cGy ARIA RO MODEL Plan Primary Reference Point Glottis_PRP ARIA RO MODEL 01/27/2025 9:44 AM CDT us Unknown Provider RADIATION ONCOLOGY ORDERABLES F inal Result ARIA RO MODEL [address] [place] [address] * RAD ONC ARIA SESSION SUMMARY (01/24/2025 9:42 AM CDT) Course ID C1 ARIA RO MODEL Course Intent Curative ARIA RO MODEL Course Start Date 12/25/2024 1:04 PM ARIA RO MODEL Session Number 10 ARIA RO MODEL Course End Date 01/13/2025 9:35 AM ARIA RO MODEL Course Last Treatment Date 01/24/2025 9:46 AM ARIA RO MODEL Course Elapsed Days 11 ARIA RO MODEL Reference Point ID Glottis_PRP ARIA RO MODEL Reference Point Dosage Given to Date 22.5 Gy ARIA RO MODEL Reference Point Session Dosage Given 2.25 Gy ARIA RO MODEL Plan ID Glottis_Revi s ARIA RO MODEL Plan Name Plan_Glottis _PTV ARIA RO MODEL Energy 6X ARIA RO MODEL Plan Fractions Treated to Date 8 ARIA RO MODEL Plan Total Fractions Prescribed 26 ARIA RO MODEL Plan Prescribed Dose Per Fraction 2.25 Gy ARIA RO MODEL Plan Total Prescribed Dose 5,850 cGy ARIA RO MODEL Plan Primary Reference Point Glottis_PRP ARIA RO MODEL 01/24/2025 9:42 AM CDT us Unknown Provider RADIATION ONCOLOGY ORDERABLES F inal Result Performing Organization Address City/State/[facility] Co de Phone Number ARIA RO MODEL [address] [place] [address] * RAD ONC ARIA SESSION SUMMARY (01/23/2025 9:50 AM CDT) Course ID C1 ARIA RO MODEL Course Intent Curative ARIA RO MODEL Course Start Date 12/25/2024 1:04 PM ARIA RO MODEL Session Number 9 ARIA RO MODEL Course End Date 01/13/2025 9:35 AM ARIA RO MODEL Course Last Treatment Date 01/23/2025 9:54 AM ARIA RO MODEL Course Elapsed Days 10 ARIA RO MODEL Reference Point ID Glottis_PRP ARIA RO MODEL Reference Point Dosage Given to Date 20.25 Gy ARIA RO MODEL Reference Point Session Dosage Given 2.25 Gy ARIA RO MODEL Plan ID Glottis_Revi s ARIA RO MODEL Plan Name Plan_Glottis _PTV ARIA RO MODEL Energy 6X ARIA RO MODEL Plan Fractions Treated to Date 7 ARIA RO MODEL Plan Total Fractions Prescribed 26 ARIA RO MODEL Plan Prescribed Dose Per Fraction 2.25 Gy ARIA RO MODEL Plan Total Prescribed Dose 5,850 cGy ARIA RO MODEL Plan Primary Reference Point Glottis_PRP ARIA RO MODEL 01/23/2025 9:50 AM CDT us Unknown Provider RADIATION ONCOLOGY ORDERABLES F inal Result ARIA RO MODEL [address] [place] [address] * RAD ONC ARIA SESSION SUMMARY (01/22/2025 9:50 AM CDT) Course ID C1 ARIA RO MODEL Course Intent Curative ARIA RO MODEL Course Start Date 12/25/2024 1:04 PM ARIA RO MODEL Session Number 8 ARIA RO MODEL Course End Date 01/13/2025 9:35 AM ARIA RO MODEL Course Last Treatment Date 01/22/2025 9:54 AM ARIA RO MODEL Course Elapsed Days 9 ARIA RO MODEL Reference Point ID Glottis_PRP ARIA RO MODEL Reference Point Dosage Given to Date 18 Gy ARIA RO MODEL Reference Point Session Dosage Given 2.25 Gy ARIA RO MODEL Plan ID Glottis_Revi s ARIA RO MODEL Plan Name Plan_Glottis _PTV ARIA RO MODEL Energy 6X ARIA RO MODEL Plan Fractions Treated to Date 6 ARIA RO MODEL Plan Total Fractions Prescribed 26 ARIA RO MODEL Plan Prescribed Dose Per Fraction 2.25 Gy ARIA RO MODEL Plan Total Prescribed Dose 5,850 cGy ARIA RO MODEL Plan Primary Reference Point Glottis_PRP ARIA RO MODEL 01/22/2025 9:50 AM CDT us Unknown Provider RADIATION ONCOLOGY ORDERABLES F inal Result Performing Organization Address City/[facility]/ZIP Co de Phone Number ARIA RO MODEL [address] [place] [address] * RAD ONC ARIA SESSION SUMMARY (01/21/2025 9:48 AM CDT) Course ID C1 ARIA RO MODEL Course Intent Curative ARIA RO MODEL Course Start Date 12/25/2024 1:04 PM ARIA RO MODEL Session Number 7 ARIA RO MODEL Course End Date 01/13/2025 9:35 AM ARIA RO MODEL Course Last Treatment Date 01/21/2025 9:52 AM ARIA RO MODEL Course Elapsed Days 8 ARIA RO MODEL Reference Point ID Glottis_PRP ARIA RO MODEL Reference Point Dosage Given to Date 15.75 Gy ARIA RO MODEL Reference Point Session Dosage Given 2.25 Gy ARIA RO MODEL Plan ID Glottis_Revi s ARIA RO MODEL Plan Name Plan_Glottis _PTV ARIA RO MODEL Energy 6X ARIA RO MODEL Plan Fractions Treated to Date 5 ARIA RO MODEL Plan Total Fractions Prescribed 26 ARIA RO MODEL Plan Prescribed Dose Per Fraction 2.25 Gy ARIA RO MODEL Plan Total Prescribed Dose 5,850 cGy ARIA RO MODEL Plan Primary Reference Point Glottis_PRP ARIA RO MODEL 01/21/2025 9:48 AM CDT us Unknown Provider RADIATION ONCOLOGY ORDERABLES F inal Result Performing Organization Address City/State/[facility] Co de Phone Number ARIA RO MODEL [address] [place] [address] * RAD ONC ARIA SESSION SUMMARY (01/20/2025 9:57 AM CDT) Course ID C1 ARIA RO MODEL Course Intent Curative ARIA RO MODEL Course Start Date 12/25/2024 1:04 PM ARIA RO MODEL Session Number 6 ARIA RO MODEL Course End Date 01/13/2025 9:35 AM ARIA RO MODEL Course Last Treatment Date 01/20/2025 10:01 AM ARIA RO MODEL Course Elapsed Days 7 ARIA RO MODEL Reference Point ID Glottis_PRP ARIA RO MODEL Reference Point Dosage Given to Date 13.5 Gy ARIA RO MODEL Reference Point Session Dosage Given 2.25 Gy ARIA RO MODEL Plan ID Glottis_Revi s ARIA RO MODEL Plan Name Plan_Glottis _PTV ARIA RO MODEL Energy 6X ARIA RO MODEL Plan Fractions Treated to Date 4 ARIA RO MODEL Plan Total Fractions Prescribed 26 ARIA RO MODEL Plan Prescribed Dose Per Fraction 2.25 Gy ARIA RO MODEL Plan Total Prescribed Dose 5,850 cGy ARIA RO MODEL Plan Primary Reference Point Glottis_PRP ARIA RO MODEL 01/20/2025 9:57 AM CDT us Unknown Provider RADIATION ONCOLOGY ORDERABLES F inal Result Performing Organization Address [facility] Co de Phone Number ARIA RO MODEL [address] [place] [address] * RAD ONC ARIA SESSION SUMMARY (01/17/2025 9:32 AM CDT) Course ID C1 ARIA RO MODEL Course Intent Curative ARIA RO MODEL Course Start Date 12/25/2024 1:04 PM ARIA RO MODEL Session Number 5 ARIA RO MODEL Course End Date 01/13/2025 9:35 AM ARIA RO MODEL Course Last Treatment Date 01/17/2025 9:36 AM ARIA RO MODEL Course Elapsed Days 4 ARIA RO MODEL Reference Point ID Glottis_PRP ARIA RO MODEL Reference Point Dosage Given to Date 11.25 Gy ARIA RO MODEL Reference Point Session Dosage Given 2.25 Gy ARIA RO MODEL Plan ID Glottis_Revi s ARIA RO MODEL Plan Name Plan_Glottis _PTV ARIA RO MODEL Energy 6X ARIA RO MODEL Plan Fractions Treated to Date 3 ARIA RO MODEL Plan Total Fractions Prescribed 26 ARIA RO MODEL Plan Prescribed Dose Per Fraction 2.25 Gy ARIA RO MODEL Plan Total Prescribed Dose 5,850 cGy ARIA RO MODEL Plan Primary Reference Point Glottis_PRP ARIA RO MODEL 01/17/2025 9:32 AM CDT us Unknown Provider RADIATION ONCOLOGY ORDERABLES F inal Result Performing Organization Address City/[facility]/ZIP Co de Phone Number ARIA RO MODEL [address] [place] [address] * RAD ONC ARIA SESSION SUMMARY (01/16/2025 9:58 AM CDT) Course ID C1 ARIA RO MODEL Course Intent Curative ARIA RO MODEL Course Start Date 12/25/2024 1:04 PM ARIA RO MODEL Session Number 4 ARIA RO MODEL Course End Date 01/13/2025 9:35 AM ARIA RO MODEL Course Last Treatment Date 01/16/2025 10:02 AM ARIA RO MODEL Course Elapsed Days 3 ARIA RO MODEL Reference Point ID Glottis_PRP ARIA RO MODEL Reference Point Dosage Given to Date 9 Gy ARIA RO MODEL Reference Point Session Dosage Given 2.25 Gy ARIA RO MODEL Plan ID Glottis_Revi s ARIA RO MODEL Plan Name Plan_Glottis _PTV ARIA RO MODEL Energy 6X ARIA RO MODEL Plan Fractions Treated to Date 2 ARIA RO MODEL Plan Total Fractions Prescribed 26 ARIA RO MODEL Plan Prescribed Dose Per Fraction 2.25 Gy ARIA RO MODEL Plan Total Prescribed Dose 5,850 cGy ARIA RO MODEL Plan Primary Reference Point Glottis_PRP ARIA RO MODEL 01/16/2025 9:58 AM CDT us Unknown Provider RADIATION ONCOLOGY ORDERABLES F inal Result Performing Organization Address City/State/[facility] Co de Phone Number ARIA RO MODEL [address] [place] [address] * RAD ONC ARIA SESSION SUMMARY (01/15/2025 9:39 AM CDT) Course ID C1 ARIA RO MODEL Course Intent Curative ARIA RO MODEL Course Start Date 12/25/2024 1:04 PM ARIA RO MODEL Session Number 3 ARIA RO MODEL Course End Date 01/13/2025 9:35 AM ARIA RO MODEL Course Last Treatment Date 01/15/2025 9:43 AM ARIA RO MODEL Course Elapsed Days 2 ARIA RO MODEL Reference Point ID Glottis_PRP ARIA RO MODEL Reference Point Dosage Given to Date 6.75 Gy ARIA RO MODEL Reference Point Session Dosage Given 2.25 Gy ARIA RO MODEL Plan ID Glottis_Revi s ARIA RO MODEL Plan Name Plan_Glottis _PTV ARIA RO MODEL Energy 6X ARIA RO MODEL Plan Fractions Treated to Date 1 ARIA RO MODEL Plan Total Fractions Prescribed 26 ARIA RO MODEL Plan Prescribed Dose Per Fraction 2.25 Gy ARIA RO MODEL Plan Total Prescribed Dose 5,850 cGy ARIA RO MODEL Plan Primary Reference Point Glottis_PRP ARIA RO MODEL 01/15/2025 9:39 AM CDT us Unknown Provider RADIATION ONCOLOGY ORDERABLES F inal Result Performing Organization Address [facility] de Phone Number ARIA RO MODEL [address] [place] [address] * RAD ONC ARIA SESSION SUMMARY (01/14/2025 9:35 AM CDT) Course ID C1 ARIA RO MODEL Course Intent Curative ARIA RO MODEL Course Start Date 12/25/2024 1:04 PM ARIA RO MODEL Session Number 2 ARIA RO MODEL Course End Date 01/13/2025 9:35 AM ARIA RO MODEL Course Last Treatment Date 01/14/2025 9:39 AM ARIA RO MODEL Course Elapsed Days 1 ARIA RO MODEL Reference Point ID Glottis_PRP ARIA RO MODEL Reference Point Dosage Given to Date 4.5 Gy ARIA RO MODEL Reference Point Session Dosage Given 2.25 Gy ARIA RO MODEL Plan ID Glottis_6300 ARIA RO MODEL Plan Name Glottis_6300 ARIA RO MODEL Energy 6X ARIA RO MODEL Plan Fractions Treated to Date 2 ARIA RO MODEL Plan Total Fractions Prescribed 28 ARIA RO MODEL Plan Prescribed Dose Per Fraction 2.25 Gy ARIA RO MODEL Plan Total Prescribed Dose 6,300 cGy ARIA RO MODEL Plan Primary Reference Point Glottis_PRP ARIA RO MODEL 01/14/2025 9:35 AM CDT us Unknown Provider RADIATION ONCOLOGY ORDERABLES F inal Result Performing Organization Address [facility] Co de Phone Number ARIA RO MODEL [address] [place] [address] * RAD ONC ARIA SESSION SUMMARY (01/13/2025 9:42 AM CDT) Course ID C1 ARIA RO MODEL Course Intent Curative ARIA RO MODEL Course Start Date 12/25/2024 1:04 PM ARIA RO MODEL Session Number 1 ARIA RO MODEL Course End Date 01/13/2025 9:35 AM ARIA RO MODEL Course Last Treatment Date 01/13/2025 9:40 AM ARIA RO MODEL Course Elapsed Days 0 ARIA RO MODEL Reference Point ID Glottis_PRP ARIA RO MODEL Reference Point Dosage Given to Date 2.25 Gy ARIA RO MODEL Reference Point Session Dosage Given 2.25 Gy ARIA RO MODEL Plan ID Glottis_6300 ARIA RO MODEL Plan Name Glottis_6300 ARIA RO MODEL Energy 6X ARIA RO MODEL Plan Fractions Treated to Date 1 ARIA RO MODEL Plan Total Fractions Prescribed 28 ARIA RO MODEL Plan Prescribed Dose Per Fraction 2.25 Gy ARIA RO MODEL Plan Total Prescribed Dose 6,300 cGy ARIA RO MODEL Plan Primary Reference Point Glottis_PRP ARIA RO MODEL 01/13/2025 9:42 AM CDT us Unknown Provider RADIATION ONCOLOGY ORDERABLES F inal Result ARIA RO MODEL [address] [place] [address] * CT SOFT TISSUE NECK W CONTRAST (12/31/2024 4:08 PM CDT) Anatomical Region Laterality Modality Spine N/A Computed Tomogra phy 01/01/2025 11:0 8 PM CDT Impressions 01/01/2025 11:11 PM CDT IMPRESSION: No lymph node enlargement or other evidence of disease progression identified. Narrative 01/01/2025 11:11 PM CDT EXAM DESCRIPTION: CT SOFT TISSUE NECK W CONTRAST REASON FOR STUDY: F/u glottis ca x 10 months TECHNIQUE: Post IV contrast scanning from skull base through lung apices. Reconstructed MPR images reviewed. All images stored on PACS. Automated exposure control was used as a dose optimization technique for this examination. CONTRAST TYPE/DOSE: 100mL of IOPAMIDOL 76 % IV SOLN injected via Intravenous COMPARISON: 08/09/2024 FINDINGS: AERODIGESTIVE TRACT: No mass, inflammation, or other asymmetry. THORACIC INLET//MEDIASTINUM: Thyroid gland unremarkable. Upper mediastinum appears normal. NECK SOFT TISSUE: Salivary glands appear normal. No enlarged lymph node. LUNG APICES: Clear. SKULL BASE: Visualized paranasal sinuses, middle ear cavities, and mastoid air cells are clear. Included intracranial contents, orbits, and globes unremarkable. OTHER OSSEOUS: Moderate disc disease and facet arthropathy. Visualized ribs, clavicles, and scapula appear normal. THIS IS AN ELECTRONICALLY VERIFIED FINAL REPORT 01/01/2025 11:08 PM - Electronically signed by Du Mon M.D. AR: GARRETT Report ID: [id number] Reading Location: [id number] Procedure Note Du Mon MD - 01/01/2025 EXAM DESCRIPTION: CT SOFT TISSUE NECK W CONTRAST REASON FOR STUDY: F/u glottis ca x 10 months TECHNIQUE: Post IV contrast scanning from skull base through lung apices. Reconstructed MPR images reviewed. All images stored on PACS. Automated exposure control was used as a dose optimization technique for this examination. CONTRAST TYPE/DOSE: 100mL of IOPAMIDOL 76 % IV SOLN injected via Intravenous COMPARISON: 08/09/2024 FINDINGS: AERODIGESTIVE TRACT: No mass, inflammation, or other asymmetry. THORACIC INLET//MEDIASTINUM: Thyroid gland unremarkable. Upper mediastinum appears normal. NECK SOFT TISSUE: Salivary glands appear normal. No enlarged lymph node. LUNG APICES: Clear. SKULL BASE: Visualized paranasal sinuses, middle ear cavities, and mastoid air cells are clear. Included intracranial contents, orbits, and globes unremarkable. OTHER OSSEOUS: Moderate disc disease and facet arthropathy. Visualized ribs, clavicles, and scapula appear normal. THIS IS AN ELECTRONICALLY VERIFIED FINAL REPORT 01/01/2025 11:08 PM - Electronically signed by Du Mon M.D. AR: GARRETT Report ID: [id number] Reading Location: [id number] IMPRESSION: No lymph node enlargement or other evidence of disease progression identified. Dave Ramos MD IMG CT ORDERABLES Final Result * POCT Creatinine (12/31/2024 3:47 PM CDT) CREATININE - POCT 0.9 0.6 - 1.3 mg/dL 12/31/2024 3:49 PM CDT [facility] Blood 12/31/2024 3:47 PM CDT 12/31/2024 3:49 PM CDT us None Provider POINT OF CARE TESTING Final Resu lt [facility] [address] [place] [address] * CT REFERENCE IMAGES FOR IMAGE IMPORT (12/17/2024 3:18 PM CDT) Only the most recent of2 resultswithin the time period is included. us Not On File Provider IMG CT ORDERABLES Final Res ult * MR REFERENCE IMAGES FOR IMAGE IMPORT (12/17/2024 3:16 PM CDT) us Not On File Provider IMG MR ORDERABLES Final Res ult from Last 3 Months Insurance MEDICARE [facility] Care Teams Slab Off Mill Tender Relationship Specialty Start Date End Date Bobby Minor MD [address] [place] [address] PCP - General Internal Medicine 12/25/24 Elieser Rick MD [facility] [place] [address] Consulting Physician Otolaryngology 12/24/24 Dave Ramos MD [address] [place] [address] Consulting Physician Radiation Oncology 12/24/24 Juan Ramon Ferris MD [address] [place] [address] Consulting Physician Otolaryngology 12/25/24
--- OUTSIDE RECORDS SUMMARY | 2025-01-31 07:26 | XMS_ITS | Clinical Summary ---
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 MEDICARE [facility] [employer] BLUE ACCESS ID FOR[facility]LY [facility] MEDICARE Care Teams Billing Department Supervisor Relationship Specialty Start Date End Date Bobby Minor MD [address] [place] [address] PCP - General Internal Medicine 12/25/20 Bobby Minor MD [address] [place] [address] Referring Physician Internal Medicine 05/31/24
--- OUTSIDE RECORDS SUMMARY | 2025-01-31 07:26 | XMS_ITS | Encounter Summary ---
Author Organization [facility] Address [address] [facility] [place] [address] Phone Care Team Providers Care Associate Professor Of History Name Role Phone Elieser Rick MD Unavailable [phone] Dave Ramos MD Unavailable [phone] Bobby Minor MD Primary Care Provider [phone] Juan Ramon Ferris MD Unavailable [phone] Encounter Details Date Type Department Care Team (Late st Contact Info) Description 01/22/2025 Documentation Only [facility] Oncology Services [address] [place] [address] Dave Ramos MD [address] [place] [address] Social History Tobacco Use Types [...] this encounter Miscellaneous Notes * Interdisciplinary - Vero Araiza, RD - 01/22/2025 9:57 AM CDT 01/20/2025-weekly kk=659# 4oz; No issues with appetite & swallowing; drinking 'lots of water'. documented in this encounter Plan of Treatment Upcoming Encounters Date Type Department Care Team (Late st Contact Info) Description 01/31/2025 9:45 AM CDT Clinical Support [facility] Oncology Services [address] [place] [phone] Dave Ramos MD [address] [place] [address] 02/03/2025 9:45 AM CDT Clinical Support [facility] Oncology Services [address] [place] [phone] Dave Ramos MD [address] [place] [address] 02/03/2025 10:00 AM CDT Office Visit [facility] Oncology Services [address] [place] [phone] Dave Ramos MD [address] [place] [address] Shaw Maynard MD [address] [place] [address] 02/04/2025 9:45 AM CDT Clinical Support [facility] Oncology Services [address] [place] [phone] Dave Ramos MD [address] [place] [address] 02/05/2025 9:45 AM CDT Clinical Support [facility] Oncology Services [address] [place] [phone] Dave Ramos MD [address] [place] [address] 02/06/2025 9:45 AM CDT Clinical Support [facility] Oncology Services [address] [place] [phone] Dave Ramos MD [address] [place] [address] 02/07/2025 9:45 AM CDT Clinical Support [facility] Oncology Services [address] [place] [phone] Dave Ramos MD [address] [place] [address] 02/10/2025 9:45 AM CDT Clinical Support [facility] Oncology Services [address] [place] [phone] Dave Ramos MD [address] [place] [address] 02/10/2025 10:00 AM CDT Office Visit [facility] Oncology Services [address] [place] [phone] Dave Ramos MD [address] [place] [address] 02/11/2025 9:45 AM CDT Clinical Support [facility] Oncology Services [address] [place] [phone] Dave Ramos MD [address] [place] [address] 02/12/2025 9:45 AM CDT Clinical Support [facility] Oncology Services [address] [place] [phone] Dave Ramos MD [address] [place] [address] 02/13/2025 9:45 AM CDT Clinical Support [facility] Oncology Services [address] [place] [phone] Dave Ramos MD [address] [place] [address] 02/17/2025 9:45 AM CDT Clinical Support [facility] Oncology Services [address] [place] [phone] Dave Ramos MD [address] [place] [address] 02/17/2025 10:00 AM CDT Office Visit [facility] Oncology Services [address] [place] [phone] Dave Ramos MD [address] [place] [address] Shaw Maynard MD [address] [place] [address] 02/18/2025 9:45 AM CDT Clinical Support [facility] Oncology Services [address] [place] [phone] Dave Ramos MD [address] [place] [address] 02/19/2025 9:45 AM CDT Clinical Support [facility] Oncology Services [address] [place] [phone] Dave Ramos MD [address] [place] [address] 02/20/2025 9:45 AM CDT Clinical Support [facility] Oncology Services [address] [place] [phone] Dave Ramos MD [address] [place] [address] documented as of this encounter Visit Diagnoses Not on filedocumented in this encounter Care Teams Associate Professor Of History Relationship Specialty Start Date End Date Bobby Minor MD [address] [place] [address] PCP - General Internal Medicine 12/25/24 Elieser Rick MD [address] [place] [address] Consulting Physician Otolaryngology 12/24/24 Dave Ramos MD [address] [place] [address] Consulting Physician Radiation Oncology 12/24/24 Juan Ramon Ferris MD [facility] [place] [address] Consulting Physician Otolaryngology 12/25/24 documented as of this encounter
--- OUTSIDE RECORDS SUMMARY | 2025-01-31 07:27 | XMS_ITS | Clinical Summary ---
Author Organization [facility] Tammivince Lama Address [address] [place] [address] Care Team Providers Care Clinical Care Manager Name Role Phone Bobby Minor MD Primary [...] Encounters Date Type Department Care Team Description 01/28/2025 External Device Data STL ABSTRACTION Provider, Abstract 01/07/2025 External Device Data ST[facility] ABSTRACTION Provider, Abstract 01/02/2025 External Device Data ST[facility] ABSTRACTION Provider, Abstract 01/01/2025 External Device Data STL ABSTRACTION Provider, Abstract 12/31/2024 External Device Data STL ABSTRACTION Provider, Abstract [...] 3:20 PM CDT Height 165.1 cm (5' 5) 03/26/2024 3:20 PM CDT Body Mass Index 40.1 03/26/2024 3:20 PM CDT Plan of Treatment Health Maintenance Due [...] 2024 10/24/2020, 09/26/2020 BREAST CANCER SCREENING 05/14/2025 05/14/20, 05/14/2024, 04/28/2023, Additional history exists OSTEOPOROSIS SCREENING 12/18/2025 12/18/2020 COLORECTAL SCREENING 03/10/2032 03/10/2022 Colorectal Cancer Screening 03/10/2032 Insurance MEDICARE PART A AND B [facility] Care Teams Clinical Care Manager Relationship Specialty Start Date End Date Bobby Minor MD [address] [place] [address] PCP - General Internal Medicine 03/26/24
--- OUTSIDE RECORDS SUMMARY | 2025-01-31 07:27 | XMS_ITS | Patient Health Record ---
Author Organization [facility] Address [address] [place] [address] Support Name Relationship Address Phone Carol Perez Guarantor Unknown Unavailable Reason For Referral No Information Plan Of Treatment No Information Insurance Providers Payer Name Payer Address Payer Phone Subscriber Number Group Number Insured Name Patient Relationship to Insured Coverage Start Date Coverage End Date MEDICARE PART B [address] [address] [place] [address] [id number] Carol Perez Self - patient is the insured [facility] [address] [place] [address] [phone] [id number] Carol Perez Self - patient is the insured
[2025-01-31 07:39] LABS: Add Urine Microscopic? YES; Appearance Urine Clear (Clear); Basophils Absolute Auto 0.02 K/mm3 (0.00-0.10); Basophils Percent Auto 0.3 % (0.0-1.0); Bilirubin Urine Negative (Negative); Blood Urine Trace-intact (Negative); Color Urine Light Yellow (Yellow); Eosinophils Absolute Auto 0.12 K/mm3 (0.02-0.50); Eosinophils Percent Auto 1.9 % (1.0-6.0); Glucose Urine UA Negative (Negative); Hematocrit 45.4 % (35.0-42.0); Hemoglobin 14.5 g/dL (11.7-13.8); Immature Granulocyte Absolute 0.02 K/mm3 (0.00-0.00); Immature Granulocyte Percent A 0.3 % (0.0-0.0); Ketones Urine Negative (Negative); Leukocyte Esterase Ur Negative LEU/UL (Negative); Lymphocytes Absolute Auto 1.47 K/mm3 (1.10-4.50); Lymphocytes Percent Auto 23.2 % (18.0-42.0); Mean Corpuscular HGB Conc 31.9 g/dL (32-36); Mean Corpuscular Hemoglobin 28.7 pg (27.0-31.0); Mean Corpuscular Volume 89.7 fL (78.0-102.0); Mean Platelet Volume 9.2 fl (9.2-11.8); Monocytes Absolute Auto 0.35 K/mm3 (0.10-0.90); Monocytes Percent Auto 5.5 % (2.0-11.0); Neutrophils Absolute Auto 4.36 K/mm3 (1.70-7.20); Neutrophils Percent Auto 68.8 % (50.0-70.0); Nitrate Urine Negative (Negative); Platelet Count Result 312 K/mm3 (150-420); Protein Urine Trace (Negative); Red Blood Count 5.06 M/mm3 (4.20-5.40); Red Cell Distribution Width 12.2 % (11.6-14.4); Specific Grav Ur 1.025 (1.010-1.020); Urobilinogen Urine 0.2 mg/dL (0.2-1.0); White Blood Count 6.3 K/mm3 (4.8-10.8)
[2025-01-31 07:56] LABS: Bacteria Urine Trace /hpf; Hyaline Casts Urine 0-2 /lpf; RBC Urine 0-2 /hpf (0-2); Renal Epithelial Cells Urine Few /hpf; Squamous Epithelial Cell Urine Few /hpf (Few); WBC Urine 0-3 /hpf (0-3)
[2025-01-31 08:04] LABS: Hemoglobin A1C 6.3 % (<5.7)
[2025-01-31 08:31] LABS: Alanine Aminotransferase 39 U/L (6-35); Albumin Level 4.8 g/dL (3.5-5.1); Alkaline Phosphatase 61 U/L (38-126); Anion Gap 8 mmol/L (4-12); Aspartate Amino Transferase 37 U/L (14-36); Bilirubin,Total 0.6 mg/dL (0.2-1.3); Blood Urea Nitrogen 14 mg/dL (7-17); Calcium 9.5 mg/dL (8.4-10.2); Carbon Dioxide 32 mmol/L (22-30); Chloride 100 mmol/L (98-107); Cholesterol 238 mg/dL (0-200); Estimated Glomerular Filt Rate > 60; Glucose 138 mg/dL (65-110); HDL Direct 45 mg/dL; LDL Cholesterol Calculated 150 mg/dL (<130); Osmolality Calculated 292 mOsm/kg (285-295); Potassium 4.4 mmol/L (3.4-5.0); Sodium 140 mmol/L (137-145); Total Protein 7.6 g/dL (6.3-8.2); Triglycerides 213 mg/dL (<150)
[2025-01-31 09:01] LABS: Free T3 3.71 pg/mL (2.18-3.98)
[2025-01-31 09:02] LABS: Thyroid Stimulating Hormone 0.385 uIU/mL (0.465-4.680)
== END 2025-01-31 07:22 | disposition home or self-care (01) ==
LOC: CHSLAB 07:24
PROVIDERS: PCP Internal Medicine; Visit Provider Internal Medicine
DX: E11.9 Type 2 diabetes mellitus without complications (principal); E03.4 Atrophy of thyroid (acquired); N39.0 Urinary tract infection, site not specified; E78.2 Mixed hyperlipidemia
CPT/HCPCS: 36415; 80053; 80061; 81001; 83036; 84439; 84443; 84481; 85025

== ENCOUNTER 2025-04-24 09:07 | Outpatient (CLI) | payer MEDICARE, BC, SELFPAY ==
--- OUTSIDE RECORDS SUMMARY | 2025-04-24 09:49 | XMS_ITS | Clinical Summary ---
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
--- OUTSIDE RECORDS SUMMARY | 2025-04-24 09:49 | XMS_ITS | Patient Health Record ---
Author Organization [facility] Address [address] [place] [address] Support Name Relationship Address Phone Carol Perez Guarantor Unknown Unavailable Reason For Referral No Information Plan Of Treatment No Information Insurance Providers Payer Name Payer Address Payer Phone Subscriber Number Group Number Insured Name Patient Relationship to Insured Coverage Start Date Coverage End Date MEDICARE PART [place] [address] [address] [place] [address] [id number] Carol Perez Self - patient is the insured [facility] [address] [place] [address] [phone] [id number] Carol Perez Self - patient is the insured
--- OUTSIDE RECORDS SUMMARY | 2025-04-24 09:49 | XMS_ITS | Clinical Summary ---
Author Organization [facility] Address [address] [place] [address] Phone Care Team Providers Care Vice President And Portfolio Manager Name Role Phone Elieser Rick MD Unavailable Dave Ramos MD Unavailable [phone] Bobby Minor MD Primary Care Provider [phone] Juan Ramon Ferris MD Unavailable [phone] Allergies Active Allergy Reactions Criticality Noted Date [...] SOLN 480 mL 1 01/28/20 25 Active naloxone HCl (Narcan) 4 MG/0.1ML LiquidIndications:G lottis carcinoma (HCC),Radiation esophagitis 1 [place] by Nasal route as needed for Opioid Reversal. Administer in one nostril for symptoms of overdose (severe sleepiness, breathing problems, not responsive). Call 911. May repeat 1 spray in alternate nostril in 2-3 minutes if needed. 2 Each 02/04/20 25 Active fentaNYL (DURAGESIC) 25 MCG/HR PATCH 72 HRIndications:Chron ic Pain,Pain due to radiation esophagitis 1 Patch by Transdermal route every 72 hours. Upon removal, safely discard used patch by immediately folding sticky sides together and flushing patch down the toilet. Indications: Chronic Pain, Pain due to radiation esophagitis 10 Patch 02/18/20 Active Additional Information Patient not taking.Reported on 03/07/2025 ondansetron (ZOFRAN-ODT) 4 MG TABLET DISPERSIBLEIndicati ons:Radiation-Induc ed Nausea and Vomiting Take 1 Tablet by mouth every 8 hours as needed for Nausea - 1st line. Indications: Nausea and Vomiting caused by Radiation Treatment 60 Tablet 03/07/20 Active HYDROcodone-Acetami nophen 7.5-325 MG/15ML SolutionIndications :Glottis carcinoma (HCC),Radiation esophagitis,Cancer related pain Take 15 mL by mouth every 6 hours as needed for Moderate or more severe pain or Cough. 540 mL 03/07/20 25 Active dexamethasone (DECADRON) 1 MG TabletIndications:R adiation-induced laryngeal edema Take 4 tabs PO x 3 days; then 3 tabs PO x 3 days, then 2 tabs PO x 3 days, then 1 tab PO x 3 days, then discontinue medication. Indications: Radiation-induce d laryngeal edema 40 Tablet 03/17/20 Active Active Problems Problem Noted Date Diagnosed Date Cancer related pain 03/07/2025 Laryngeal edema 03/07/2025 Nausea and vomiting 03/07/2025 History of therapeutic radiation 02/26/2025 Overview (02/26/2025): Glottic radiotherapy, 63 Rasmussen in 28 fractions, from 01/13/2025 thru 02/21/2025. 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 At both the initial and most recent direct laryngoscopy with biopsy the tumor was confined to the anterior half of the right true vocal cord and vocal cord mobility was normal bilaterally. She began small field glottic radiotherapy 01/13/2025 and completed 02/21/2025 receiving 63 Rasmussen in 28 fractions. History of nonmelanoma skin cancer 12/25/2024 Overview (12/25/2024): Basal cell carcinomas of the face and squamous cell carcinoma of the back. Encounters Date Type Department Care Team Description 03/26/2025 Documentation Only [facility] [address] [place] [address] 03/17/2025 Telephone [facility] [address] [place] [address] Dave Ramos MD 03/07/2025 9:30 AM CDT Office Visit [facility] [address] [place] [phone] Dave Ramos MD Butler, David Ferrell, MD Cancer related pain (Primary Dx); Glottis carcinoma (HCC); Radiation esophagitis; Laryngeal edema; Nausea and vomiting, unspecified vomiting type Discharge Disposition: Discharged to home or Selfcare 03/07/2025 Travel 02/25/2025 9:30 AM CDT Clinical Support [facility] [address] [place] [phone] Dave Ramos MD Radiation esophagitis (Primary Dx); Adverse effect of radiation, subsequent encounter Discharge Disposition: Discharged to home or Selfcare 02/25/2025 Travel 02/21/2025 9:45 AM CDT Clinical Support [facility] [address] [place] [phone] Dave Ramos MD Encounter for radiotherapy (Primary Dx); Glottis carcinoma (HCC); Radiation esophagitis; Adverse effect of radiation, initial encounter Discharge Disposition: Discharged to home or Selfcare 02/21/2025 Documentation Only [facility] [address] [place] [phone] Shaw Maynard MD 02/21/2025 Travel 02/20/2025 9:45 AM CDT Clinical Support [facility] [address] [place] [phone] Dave Ramos MD Discharge Disposition: Discharged to home or Selfcare 02/20/2025 Travel 02/19/2025 9:45 AM CDT Clinical Support [facility] [address] [place] [phone] Dave Ramos MD Discharge Disposition: Discharged to home or Selfcare 02/19/2025 Travel 02/18/2025 9:45 AM CDT Clinical Support [facility] [address] [place] [phone] Dave Ramos MD Discharge Disposition: Discharged to home or Selfcare 02/18/2025 8:30 AM CDT Clinical Support [facility] [address] [place] [phone] Dave Ramos MD Radiation esophagitis (Primary Dx); Adverse effect of radiation, subsequent encounter Discharge Disposition: Discharged to home or Selfcare 02/18/2025 Travel 02/17/2025 10:00 AM CDT Office Visit [facility] [address] [place] [phone] Dave Ramos MD Butler, David Ferrell, MD Cancer related pain (Primary Dx); Encounter for radiotherapy; Glottis carcinoma (HCC); Radiation esophagitis Discharge Disposition: Discharged to home or Selfcare 02/17/2025 9:45 AM CDT Clinical Support [facility] [address] [place] [phone] Dave Ramos MD Discharge Disposition: Discharged to home or Selfcare 02/17/2025 Telephone [facility] [address] [place] [phone] Shaw Maynard MD 02/17/2025 Travel 02/13/2025 9:45 AM CDT Clinical Support [facility] [address] [place] [phone] Dave Ramos MD Discharge Disposition: Discharged to home or Selfcare 02/13/2025 Travel 02/12/2025 10:30 AM CDT Clinical Support [facility] [address] [place] [phone] Piephoff, Dave Dalton, MD Glottis carcinoma (HCC) (Primary Dx); Radiation esophagitis Discharge Disposition: Discharged to home or Selfcare 02/12/2025 9:45 AM CDT Clinical Support [facility] [address] [place] [phone] Dave Ramos MD Discharge Disposition: Discharged to home or Selfcare 02/12/2025 Travel 02/11/2025 9:45 AM CDT Clinical Support [facility] [address] [place] [phone] Dave Ramos MD Discharge Disposition: Discharged to home or Selfcare 02/11/2025 Travel 02/10/2025 10:00 AM CDT Office Visit [facility] [address] [place] [phone] Dave Ramos MD Encounter for radiotherapy (Primary Dx); Glottis carcinoma (HCC); Radiation esophagitis; Adverse effect of radiation, subsequent encounter Discharge Disposition: Discharged to home or Selfcare 02/10/2025 9:45 AM CDT Clinical Support [facility] [address] [place] [phone] Dave Ramos MD Discharge Disposition: Discharged to home or Selfcare 02/10/2025 Travel 02/07/2025 9:45 AM CDT Clinical Support [facility] [address] [place] [phone] Dave Ramos MD Discharge Disposition: Discharged to home or Selfcare 02/07/2025 Travel 02/06/2025 9:45 AM CDT Clinical Support [facility] [address] [place] [phone] Dave Ramos MD Encounter for radiotherapy (Primary Dx); Glottis carcinoma (HCC); Radiation esophagitis; Adverse effect of radiation, subsequent encounter Discharge Disposition: Discharged to home or Selfcare 02/06/2025 Travel 02/05/2025 9:45 AM CDT Clinical Support [facility] [address] [place] [phone] Dave Ramos MD Discharge Disposition: Discharged to home or Selfcare 02/05/2025 Documentation Only [facility] [address] [place] [phone] Teodora Vero C, RD 02/05/2025 Telephone [facility] [address] [place] [phone] Karly Wolf, RTT 02/05/2025 Travel 02/04/2025 10:00 AM CDT Clinical Support [facility] [address] [place] [phone] Shaw Maynard MD Radiation esophagitis (Primary Dx); Adverse effect of radiation, initial encounter; History of nonmelanoma skin cancer Discharge Disposition: Discharged to home or Selfcare 02/04/2025 9:45 AM CDT Clinical Support [facility] [address] [place] [phone] Dave Ramos MD Encounter for radiotherapy (Primary Dx); Glottis carcinoma (HCC); Radiation esophagitis; Adverse effect of radiation, subsequent encounter Discharge Disposition: Discharged to home or Selfcare 02/04/2025 Travel 02/03/2025 10:00 AM CDT Office Visit [facility] [address] [place] [phone] Dave Ramos MD Butler, David Ferrell, MD Radiation esophagitis (Primary Dx); Encounter for radiotherapy; Glottis carcinoma (HCC) Discharge Disposition: Discharged to home or Selfcare 02/03/2025 9:45 AM CDT Clinical Support [facility] [address] [place] [phone] Dave Ramos MD Discharge Disposition: Discharged to home or Selfcare 02/03/2025 Travel 01/31/2025 9:45 AM CDT Clinical Support [facility] [address] [place] [phone] Dave Ramos MD Discharge Disposition: Discharged to home or Selfcare 01/31/2025 Travel 01/30/2025 9:45 AM CDT Clinical Support [facility] [address] [place] [phone] Dave Ramos MD Discharge Disposition: Discharged to home or Selfcare 01/30/2025 Travel 01/29/2025 9:45 AM CDT Clinical Support [facility] [address] [place] [phone] Dave Ramos MD Discharge Disposition: Discharged to home or Selfcare 01/29/2025 Travel 01/28/2025 9:45 AM CDT Clinical Support [facility] [address] [place] [phone] Dave Ramos MD Discharge Disposition: Discharged to home or Selfcare 01/28/2025 Travel 01/27/2025 10:00 AM CDT Office Visit [facility] [address] [place] [phone] Dave Ramos MD Encounter for radiotherapy (Primary Dx); Glottis carcinoma (HCC); Radiation esophagitis; Adverse effect of radiation, initial encounter Discharge Disposition: Discharged to home or Selfcare 01/27/2025 9:45 AM CDT Clinical Support [facility] [address] [place] [phone] Dave Ramos MD Discharge Disposition: Discharged to home or Selfcare 01/27/2025 Travel 01/24/2025 9:45 AM CDT Clinical Support [facility] [address] [place] [phone] Dave Ramos MD Discharge Disposition: Discharged to home or Selfcare 01/24/2025 Travel 01/23/2025 9:45 AM CDT Clinical Support [facility] [address] [place] [phone] Dave Ramos MD Discharge Disposition: Discharged to home or Selfcare 01/23/2025 Travel 01/22/2025 9:45 AM CDT Clinical Support [facility] [address] [place] [phone] Dave Ramos MD Discharge Disposition: Discharged to home or Selfcare 01/22/2025 Documentation Only [facility] [address] [place] [phone] Dave Ramos MD 01/22/2025 Travel from Last 3 Months Family History Medical [...] 1 08/14/1965 - 2010 Smokeless Tobacco: Never Tobacco Cessation:Counseling Given: Not Answered Comments:She started smoking when she was 18 [...] Sign Reading Time Taken Comments Blood Pressure 125/81 03/07/2025 9:42 AM CDT Pulse 65 03/07/2025 9:42 AM CDT Temperature 36.6 C (97.8 F) 03/07/2025 9:42 AM CDT Respiratory Rate 18 03/07/2025 9:42 AM CDT Oxygen Saturation 99% 03/07/2025 9:42 AM CDT Inhaled Oxygen Concentration - - Weight 113 kg (249 lb 1.6 oz) 03/07/2025 9:42 AM CDT Height 160 cm (5' 3) 03/07/2025 9:42 AM CDT Body Mass Index 44.13 03/07/2025 9:42 AM CDT Plan of Treatment Upcoming Encounters Date Type Department Care Team (Late st Contact Info) Description 06/09/2025 9:30 AM CDT Office Visit [facility] [address] [place] [phone] Dave Ramos MD [address] [place] [address] Discharge Disposition: Discharged to home or Selfcare Health Maintenance Due Date Last Done Comments DEXA Bone Density 1950 Hepatitis C Virus (HCV) Screening 1950 Mammogram 1950 TdaP Immunization 1950 Cologuard 1997 Colonoscopy 1997 Colorectal Cancer Screening 1997 Immunochemical Fecal Occult Blood 1997 Zoster Immunization (2 of 2) 06/27/2019 05/02/2019, 09/05/2012 Pneumococcal Immunization (50+ years) (3 of 3 - PCV20 or PCV21) 09/22/2019 01/13/2015, 09/22/2014 Influenza Immunization (#1) 04/14/202505/14, 06/27/2023, 06/09/2022, Additional history exists SARS-COV-2 Immunization (8 - Moderna risk ) 04/14/2025 04/25/2024, 06/20/2023, 01/18/2023, Additional history exists Lung Cancer Screening 05/31/2025 05/31/2024 , 05/31/2024, 05/12/2023, Additional history exists Respiratory Syncytial Virus (RSV) Immunization (Adult) Completed 07/03/2023 Hepatitis B Immunization Aged Out No longer [...] Date/Time Associated Diagnosis Comments RAD ONC ARIA COURSE SUMMARY Routine 02/25/2025 9:17 AM CDT RAD ONC ARIA SESSION SUMMARY Routine 02/21/2025 9:30 AM CDT Encounter for radiotherapy Glottis carcinoma (HCC) Radiation esophagitis Adverse effect of radiation, initial encounter RAD ONC ARIA SESSION SUMMARY Routine 02/20/2025 9:46 AM CDT RAD ONC ARIA SESSION SUMMARY Routine 02/19/2025 9:46 AM CDT RAD ONC ARIA SESSION SUMMARY Routine 02/18/2025 10:08 AM CDT RAD ONC ARIA SESSION SUMMARY Routine 02/17/2025 9:45 AM CDT RAD ONC ARIA SESSION SUMMARY Routine 02/13/2025 9:58 AM CDT RAD ONC ARIA SESSION SUMMARY Routine 02/12/2025 9:48 AM CDT RAD ONC ARIA SESSION SUMMARY Routine 02/11/2025 9:58 AM CDT RAD ONC ARIA SESSION SUMMARY Routine 02/10/2025 9:37 AM CDT RAD ONC ARIA SESSION SUMMARY Routine 02/07/2025 9:44 AM CDT RAD ONC ARIA SESSION SUMMARY Routine 02/06/2025 10:10 AM CDT Encounter for radiotherapy Glottis carcinoma (HCC) Radiation esophagitis Adverse effect of radiation, subsequent encounter RAD ONC ARIA SESSION SUMMARY Routine 02/04/2025 9:43 AM CDT Encounter for radiotherapy Glottis carcinoma (HCC) Radiation esophagitis Adverse effect of radiation, subsequent encounter RAD ONC ARIA SESSION SUMMARY Routine 02/03/2025 9:48 AM CDT RAD ONC ARIA SESSION SUMMARY Routine 01/31/2025 9:43 AM CDT RAD ONC ARIA SESSION SUMMARY Routine 01/30/2025 [...] SESSION SUMMARY Routine 01/22/2025 9:50 AM CDT from Last 3 Months Results * RAD ONC ARIA COURSE SUMMARY (02/25/2025 9:17 AM CDT) Course ID C1 ARIA RO MODEL Course Intent Curative ARIA RO MODEL Course Start Date 12/25/2024 1:04 PM ARIA RO MODEL Course End Date 02/25/2025 9:16 AM 01/13/2025 9:35 AM ARIA RO MODEL Course Last Treatment Date 02/21/2025 9:34 AM ARIA RO MODEL Course Elapsed Days 39 ARIA RO MODEL Reference Point ID Glottis_PRP ARIA RO MODEL Reference Point Dosage Given to Date 63 Gy ARIA RO MODEL Plan ID Glottis_6300 ARIA RO MODEL Plan Name Glottis_6300 ARIA RO MODEL Energy 6X ARIA RO MODEL Plan Fractions Treated to Date 2 ARIA RO MODEL Plan Total Fractions Prescribed 2 ARIA RO MODEL Plan Prescribed Dose Per Fraction 2.25 Gy ARIA RO MODEL Plan Total Prescribed Dose 6,300 cGy ARIA RO MODEL Plan Primary Reference Point Glottis_PRP ARIA RO MODEL Plan ID Glottis_Revi s ARIA RO MODEL Plan Name Glottis_Revi s ARIA RO MODEL Energy 6X ARIA RO MODEL Plan Fractions Treated to Date 26 ARIA RO MODEL Plan Total Fractions Prescribed 26 ARIA RO MODEL Plan Prescribed Dose Per Fraction 2.25 Gy ARIA RO MODEL Plan Total Prescribed Dose 5,850 cGy ARIA RO MODEL Plan Primary Reference Point Glottis_PRP ARIA RO MODEL 02/25/2025 9:17 AM CDT us Unknown Provider RADIATION ONCOLOGY ORDERABLES F inal Result Performing Organization Address City/State/[facility] Co de Phone Number ARIA RO MODEL [address] [place] [address] * RAD ONC ARIA SESSION SUMMARY (02/21/2025 9:30 AM CDT) Course ID C1 ARIA RO MODEL Course Intent Curative ARIA RO MODEL Course Start Date 12/25/2024 1:04 PM ARIA RO MODEL Session Number 28 ARIA RO MODEL Course End Date 01/13/2025 9:35 AM ARIA RO MODEL Course Last Treatment Date 02/21/2025 9:34 AM ARIA RO MODEL Course Elapsed Days 39 ARIA RO MODEL Reference Point ID Glottis_PRP ARIA RO MODEL Reference Point Dosage Given to Date 63 Gy ARIA RO MODEL Reference Point Session Dosage Given 2.25 Gy ARIA RO MODEL Plan ID Glottis_Revi s ARIA RO MODEL Plan Name Plan_Glottis _PTV ARIA RO MODEL Energy 6X ARIA RO MODEL Plan Fractions Treated to Date 26 ARIA RO MODEL Plan Total Fractions Prescribed 26 ARIA RO MODEL Plan Prescribed Dose Per Fraction 2.25 Gy ARIA RO MODEL Plan Total Prescribed Dose 5,850 cGy ARIA RO MODEL Plan Primary Reference Point Glottis_PRP ARIA RO MODEL 02/21/2025 9:30 AM CDT us Unknown Provider RADIATION ONCOLOGY ORDERABLES F inal Result Performing Organization Address [facility] Co de Phone Number ARIA RO MODEL [address] [place] [address] * RAD ONC ARIA SESSION SUMMARY (02/20/2025 9:46 AM CDT) Course ID C1 ARIA RO MODEL Course Intent Curative ARIA RO MODEL Course Start Date 12/25/2024 1:04 PM ARIA RO MODEL Session Number 27 ARIA RO MODEL Course End Date 01/13/2025 9:35 AM ARIA RO MODEL Course Last Treatment Date 02/20/2025 9:49 AM ARIA RO MODEL Course Elapsed Days 38 ARIA RO MODEL Reference Point ID Glottis_PRP ARIA RO MODEL Reference Point Dosage Given to Date 60.75 Gy ARIA RO MODEL Reference Point Session Dosage Given 2.25 Gy ARIA RO MODEL Plan ID Glottis_Revi s ARIA RO MODEL Plan Name Plan_Glottis _PTV ARIA RO MODEL Energy 6X ARIA RO MODEL Plan Fractions Treated to Date 25 ARIA RO MODEL Plan Total Fractions Prescribed 26 ARIA RO MODEL Plan Prescribed Dose Per Fraction 2.25 Gy ARIA RO MODEL Plan Total Prescribed Dose 5,850 cGy ARIA RO MODEL Plan Primary Reference Point Glottis_PRP ARIA RO MODEL 02/20/2025 9:46 AM CDT us Unknown Provider RADIATION ONCOLOGY ORDERABLES F inal Result Performing Organization Address City/[facility] Co de Phone Number ARIA RO MODEL [address] [place] [address] * RAD ONC ARIA SESSION SUMMARY (02/19/2025 9:46 AM CDT) Course ID C1 ARIA RO MODEL Course Intent Curative ARIA RO MODEL Course Start Date 12/25/2024 1:04 PM ARIA RO MODEL Session Number 26 ARIA RO MODEL Course End Date 01/13/2025 9:35 AM ARIA RO MODEL Course Last Treatment Date 02/19/2025 9:50 AM ARIA RO MODEL Course Elapsed Days 37 ARIA RO MODEL Reference Point ID Glottis_PRP ARIA RO MODEL Reference Point Dosage Given to Date 58.5 Gy ARIA RO MODEL Reference Point Session Dosage Given 2.25 Gy ARIA RO MODEL Plan ID Glottis_Revi s ARIA RO MODEL Plan Name Plan_Glottis _PTV ARIA RO MODEL Energy 6X ARIA RO MODEL Plan Fractions Treated to Date 24 ARIA RO MODEL Plan Total Fractions Prescribed 26 ARIA RO MODEL Plan Prescribed Dose Per Fraction 2.25 Gy ARIA RO MODEL Plan Total Prescribed Dose 5,850 cGy ARIA RO MODEL Plan Primary Reference Point Glottis_PRP ARIA RO MODEL 02/19/2025 9:46 AM CDT us Unknown Provider RADIATION ONCOLOGY ORDERABLES F inal Result ARIA RO MODEL [address] [place] [address] * RAD ONC ARIA SESSION SUMMARY (02/18/2025 10:08 AM CDT) Course ID C1 ARIA RO MODEL Course Intent Curative ARIA RO MODEL Course Start Date 12/25/2024 1:04 PM ARIA RO MODEL Session Number 25 ARIA RO MODEL Course End Date 01/13/2025 9:35 AM ARIA RO MODEL Course Last Treatment Date 02/18/2025 10:12 AM ARIA RO MODEL Course Elapsed Days 36 ARIA RO MODEL Reference Point ID Glottis_PRP ARIA RO MODEL Reference Point Dosage Given to Date 56.25 Gy ARIA RO MODEL Reference Point Session Dosage Given 2.25 Gy ARIA RO MODEL Plan ID Glottis_Revi s ARIA RO MODEL Plan Name Plan_Glottis _PTV ARIA RO MODEL Energy 6X ARIA RO MODEL Plan Fractions Treated to Date 23 ARIA RO MODEL Plan Total Fractions Prescribed 26 ARIA RO MODEL Plan Prescribed Dose Per Fraction 2.25 Gy ARIA RO MODEL Plan Total Prescribed Dose 5,850 cGy ARIA RO MODEL Plan Primary Reference Point Glottis_PRP ARIA RO MODEL 02/18/2025 10:0 8 AM CDT us Unknown Provider RADIATION ONCOLOGY ORDERABLES F inal Result Performing Organization Address [facility] Co de Phone Number ARIA RO MODEL [address] [place] [address] * RAD ONC ARIA SESSION SUMMARY (02/17/2025 9:45 AM CDT) Course ID C1 ARIA RO MODEL Course Intent Curative ARIA RO MODEL Course Start Date 12/25/2024 1:04 PM ARIA RO MODEL Session Number 24 ARIA RO MODEL Course End Date 01/13/2025 9:35 AM ARIA RO MODEL Course Last Treatment Date 02/17/2025 9:49 AM ARIA RO MODEL Course Elapsed Days 35 ARIA RO MODEL Reference Point ID Glottis_PRP ARIA RO MODEL Reference Point Dosage Given to Date 54 Gy ARIA RO MODEL Reference Point Session Dosage Given 2.25 Gy ARIA RO MODEL Plan ID Glottis_Revi s ARIA RO MODEL Plan Name Plan_Glottis _PTV ARIA RO MODEL Energy 6X ARIA RO MODEL Plan Fractions Treated to Date 22 ARIA RO MODEL Plan Total Fractions Prescribed 26 ARIA RO MODEL Plan Prescribed Dose Per Fraction 2.25 Gy ARIA RO MODEL Plan Total Prescribed Dose 5,850 cGy ARIA RO MODEL Plan Primary Reference Point Glottis_PRP ARIA RO MODEL 02/17/2025 9:45 AM CDT us Unknown Provider RADIATION ONCOLOGY ORDERABLES F inal Result Performing Organization Address [facility] Co de Phone Number ARIA RO MODEL [address] [place] [address] * RAD ONC ARIA SESSION SUMMARY (02/13/2025 9:58 AM CDT) Course ID C1 ARIA RO MODEL Course Intent Curative ARIA RO MODEL Course Start Date 12/25/2024 1:04 PM ARIA RO MODEL Session Number 23 ARIA RO MODEL Course End Date 01/13/2025 9:35 AM ARIA RO MODEL Course Last Treatment Date 02/13/2025 9:58 AM ARIA RO MODEL Course Elapsed Days 31 ARIA RO MODEL Reference Point ID Glottis_PRP ARIA RO MODEL Reference Point Dosage Given to Date 51.75 Gy ARIA RO MODEL Reference Point Session Dosage Given 2.25 Gy ARIA RO MODEL Plan ID Glottis_Revi s ARIA RO MODEL Plan Name Plan_Glottis _PTV ARIA RO MODEL Energy 6X ARIA RO MODEL Plan Fractions Treated to Date 21 ARIA RO MODEL Plan Total Fractions Prescribed 26 ARIA RO MODEL Plan Prescribed Dose Per Fraction 2.25 Gy ARIA RO MODEL Plan Total Prescribed Dose 5,850 cGy ARIA RO MODEL Plan Primary Reference Point Glottis_PRP ARIA RO MODEL 02/13/2025 9:58 AM CDT us Unknown Provider RADIATION ONCOLOGY ORDERABLES F inal Result Performing Organization Address City/State/[facility] Co de Phone Number ARIA RO MODEL [address] [place] [address] * RAD ONC ARIA SESSION SUMMARY (02/12/2025 9:48 AM CDT) Course ID C1 ARIA RO MODEL Course Intent Curative ARIA RO MODEL Course Start Date 12/25/2024 1:04 PM ARIA RO MODEL Session Number 22 ARIA RO MODEL Course End Date 01/13/2025 9:35 AM ARIA RO MODEL Course Last Treatment Date 02/12/2025 9:52 AM ARIA RO MODEL Course Elapsed Days 30 ARIA RO MODEL Reference Point ID Glottis_PRP ARIA RO MODEL Reference Point Dosage Given to Date 49.5 Gy ARIA RO MODEL Reference Point Session Dosage Given 2.25 Gy ARIA RO MODEL Plan ID Glottis_Revi s ARIA RO MODEL Plan Name Plan_Glottis _PTV ARIA RO MODEL Energy 6X ARIA RO MODEL Plan Fractions Treated to Date 20 ARIA RO MODEL Plan Total Fractions Prescribed 26 ARIA RO MODEL Plan Prescribed Dose Per Fraction 2.25 Gy ARIA RO MODEL Plan Total Prescribed Dose 5,850 cGy ARIA RO MODEL Plan Primary Reference Point Glottis_PRP ARIA RO MODEL 02/12/2025 9:48 AM CDT us Unknown Provider RADIATION ONCOLOGY ORDERABLES F inal Result Performing Organization Address [facility] Co de Phone Number ARIA RO MODEL [address] [place] [address] * RAD ONC ARIA SESSION SUMMARY (02/11/2025 9:58 AM CDT) Course ID C1 ARIA RO MODEL Course Intent Curative ARIA RO MODEL Course Start Date 12/25/2024 1:04 PM ARIA RO MODEL Session Number 21 ARIA RO MODEL Course End Date 01/13/2025 9:35 AM ARIA RO MODEL Course Last Treatment Date 02/11/2025 10:01 AM ARIA RO MODEL Course Elapsed Days 29 ARIA RO MODEL Reference Point ID Glottis_PRP ARIA RO MODEL Reference Point Dosage Given to Date 47.25 Gy ARIA RO MODEL Reference Point Session Dosage Given 2.25 Gy ARIA RO MODEL Plan ID Glottis_Revi s ARIA RO MODEL Plan Name Plan_Glottis _PTV ARIA RO MODEL Energy 6X ARIA RO MODEL Plan Fractions Treated to Date 19 ARIA RO MODEL Plan Total Fractions Prescribed 26 ARIA RO MODEL Plan Prescribed Dose Per Fraction 2.25 Gy ARIA RO MODEL Plan Total Prescribed Dose 5,850 cGy ARIA RO MODEL Plan Primary Reference Point Glottis_PRP ARIA RO MODEL 02/11/2025 9:58 AM CDT us Unknown Provider RADIATION ONCOLOGY ORDERABLES F inal Result Performing Organization Address [facility] Co de Phone Number ARIA RO MODEL [address] [place] [address] * RAD ONC ARIA SESSION SUMMARY (02/10/2025 9:37 AM CDT) Course ID C1 ARIA RO MODEL Course Intent Curative ARIA RO MODEL Course Start Date 12/25/2024 1:04 PM ARIA RO MODEL Session Number 20 ARIA RO MODEL Course End Date 01/13/2025 9:35 AM ARIA RO MODEL Course Last Treatment Date 02/10/2025 9:41 AM ARIA RO MODEL Course Elapsed Days 28 ARIA RO MODEL Reference Point ID Glottis_PRP ARIA RO MODEL Reference Point Dosage Given to Date 45 Gy ARIA RO MODEL Reference Point Session Dosage Given 2.25 Gy ARIA RO MODEL Plan ID Glottis_Revi s ARIA RO MODEL Plan Name Plan_Glottis _PTV ARIA RO MODEL Energy 6X ARIA RO MODEL Plan Fractions Treated to Date 18 ARIA RO MODEL Plan Total Fractions Prescribed 26 ARIA RO MODEL Plan Prescribed Dose Per Fraction 2.25 Gy ARIA RO MODEL Plan Total Prescribed Dose 5,850 cGy ARIA RO MODEL Plan Primary Reference Point Glottis_PRP ARIA RO MODEL 02/10/2025 9:37 AM CDT us Unknown Provider RADIATION ONCOLOGY ORDERABLES F inal Result Performing Organization Address [facility] Co de Phone Number ARIA RO MODEL [address] [place] [address] * RAD ONC ARIA SESSION SUMMARY (02/07/2025 9:44 AM CDT) Course ID C1 ARIA RO MODEL Course Intent Curative ARIA RO MODEL Course Start Date 12/25/2024 1:04 PM ARIA RO MODEL Session Number 19 ARIA RO MODEL Course End Date 01/13/2025 9:35 AM ARIA RO MODEL Course Last Treatment Date 02/07/2025 9:47 AM ARIA RO MODEL Course Elapsed Days 25 ARIA RO MODEL Reference Point ID Glottis_PRP ARIA RO MODEL Reference Point Dosage Given to Date 42.75 Gy ARIA RO MODEL Reference Point Session Dosage Given 2.25 Gy ARIA RO MODEL Plan ID Glottis_Revi s ARIA RO MODEL Plan Name Plan_Glottis _PTV ARIA RO MODEL Energy 6X ARIA RO MODEL Plan Fractions Treated to Date 17 ARIA RO MODEL Plan Total Fractions Prescribed 26 ARIA RO MODEL Plan Prescribed Dose Per Fraction 2.25 Gy ARIA RO MODEL Plan Total Prescribed Dose 5,850 cGy ARIA RO MODEL Plan Primary Reference Point Glottis_PRP ARIA RO MODEL 02/07/2025 9:44 AM CDT us Unknown Provider RADIATION ONCOLOGY ORDERABLES F inal Result ARIA RO MODEL [address] [place] [address] * RAD ONC ARIA SESSION SUMMARY (02/06/2025 10:10 AM CDT) Course ID C1 ARIA RO MODEL Course Intent Curative ARIA RO MODEL Course Start Date 12/25/2024 1:04 PM ARIA RO MODEL Session Number 18 ARIA RO MODEL Course End Date 01/13/2025 9:35 AM ARIA RO MODEL Course Last Treatment Date 02/06/2025 10:14 AM ARIA RO MODEL Course Elapsed Days 24 ARIA RO MODEL Reference Point ID Glottis_PRP ARIA RO MODEL Reference Point Dosage Given to Date 40.5 Gy ARIA RO MODEL Reference Point Session Dosage Given 2.25 Gy ARIA RO MODEL Plan ID Glottis_Revi s ARIA RO MODEL Plan Name Plan_Glottis _PTV ARIA RO MODEL Energy 6X ARIA RO MODEL Plan Fractions Treated to Date 16 ARIA RO MODEL Plan Total Fractions Prescribed 26 ARIA RO MODEL Plan Prescribed Dose Per Fraction 2.25 Gy ARIA RO MODEL Plan Total Prescribed Dose 5,850 cGy ARIA RO MODEL Plan Primary Reference Point Glottis_PRP ARIA RO MODEL 02/06/2025 10:1 0 AM CDT us Unknown Provider RADIATION ONCOLOGY ORDERABLES F inal Result Performing Organization Address City/State/[facility] Co de Phone Number ARIA RO MODEL [address] [place] [address] * RAD ONC ARIA SESSION SUMMARY (02/04/2025 9:43 AM CDT) Course ID C1 ARIA RO MODEL Course Intent Curative ARIA RO MODEL Course Start Date 12/25/2024 1:04 PM ARIA RO MODEL Session Number 17 ARIA RO MODEL Course End Date 01/13/2025 9:35 AM ARIA RO MODEL Course Last Treatment Date 02/04/2025 9:45 AM ARIA RO MODEL Course Elapsed Days 22 ARIA RO MODEL Reference Point ID Glottis_PRP ARIA RO MODEL Reference Point Dosage Given to Date 38.25 Gy ARIA RO MODEL Reference Point Session Dosage Given 2.25 Gy ARIA RO MODEL Plan ID Glottis_Revi s ARIA RO MODEL Plan Name Plan_Glottis _PTV ARIA RO MODEL Energy 6X ARIA RO MODEL Plan Fractions Treated to Date 15 ARIA RO MODEL Plan Total Fractions Prescribed 26 ARIA RO MODEL Plan Prescribed Dose Per Fraction 2.25 Gy ARIA RO MODEL Plan Total Prescribed Dose 5,850 cGy ARIA RO MODEL Plan Primary Reference Point Glottis_PRP ARIA RO MODEL 02/04/2025 9:43 AM CDT us Unknown Provider RADIATION ONCOLOGY ORDERABLES F inal Result Performing Organization Address City/[facility]/ZIP Co de Phone Number ARIA RO MODEL [address] [place] [address] * RAD ONC ARIA SESSION SUMMARY (02/03/2025 9:48 AM CDT) Course ID C1 ARIA RO MODEL Course Intent Curative ARIA RO MODEL Course Start Date 12/25/2024 1:04 PM ARIA RO MODEL Session Number 16 ARIA RO MODEL Course End Date 01/13/2025 9:35 AM ARIA RO MODEL Course Last Treatment Date 02/03/2025 9:52 AM ARIA RO MODEL Course Elapsed Days 21 ARIA RO MODEL Reference Point ID Glottis_PRP ARIA RO MODEL Reference Point Dosage Given to Date 36 Gy ARIA RO MODEL Reference Point Session Dosage Given 2.25 Gy ARIA RO MODEL Plan ID Glottis_Revi s ARIA RO MODEL Plan Name Plan_Glottis _PTV ARIA RO MODEL Energy 6X ARIA RO MODEL Plan Fractions Treated to Date 14 ARIA RO MODEL Plan Total Fractions Prescribed 26 ARIA RO MODEL Plan Prescribed Dose Per Fraction 2.25 Gy ARIA RO MODEL Plan Total Prescribed Dose 5,850 cGy ARIA RO MODEL Plan Primary Reference Point Glottis_PRP ARIA RO MODEL 02/03/2025 9:48 AM CDT us Unknown Provider RADIATION ONCOLOGY ORDERABLES F inal Result Performing Organization Address City/[facility]/ZIP Co de Phone Number ARIA RO MODEL [address] [place] [address] * RAD ONC ARIA SESSION SUMMARY (01/31/2025 9:43 AM CDT) Course ID C1 ARIA RO MODEL Course Intent Curative ARIA RO MODEL Course Start Date 12/25/2024 1:04 PM ARIA RO MODEL Session Number 15 ARIA RO MODEL Course End Date 01/13/2025 9:35 AM ARIA RO MODEL Course Last Treatment Date 01/31/2025 9:48 AM ARIA RO MODEL Course Elapsed Days 18 ARIA RO MODEL Reference Point ID Glottis_PRP ARIA RO MODEL Reference Point Dosage Given to Date 33.75 Gy ARIA RO MODEL Reference Point Session Dosage Given 2.25 Gy ARIA RO MODEL Plan ID Glottis_Revi s ARIA RO MODEL Plan Name Plan_Glottis _PTV ARIA RO MODEL Energy 6X ARIA RO MODEL Plan Fractions Treated to Date 13 ARIA RO MODEL Plan Total Fractions Prescribed 26 ARIA RO MODEL Plan Prescribed Dose Per Fraction 2.25 Gy ARIA RO MODEL Plan Total Prescribed Dose 5,850 cGy ARIA RO MODEL Plan Primary Reference Point Glottis_PRP ARIA RO MODEL 01/31/2025 9:43 AM CDT us Unknown Provider RADIATION ONCOLOGY ORDERABLES F inal Result Performing Organization Address City/State/[facility] Co de Phone Number ARIA RO MODEL [address] [place] [address] * RAD ONC ARIA SESSION SUMMARY (01/30/2025 [...] ORDERABLES F inal Result Performing Organization Address [facility] Co de Phone Number ARIA RO MODEL [address] [place] [address] * RAD ONC ARIA SESSION SUMMARY (01/29/2025 [...] ORDERABLES F inal Result Performing Organization Address [facility] Co de Phone Number ARIA RO MODEL [address] [place] [address] * RAD ONC ARIA SESSION SUMMARY (01/28/2025 [...] ORDERABLES F inal Result Performing Organization Address City/State/[facility] Co de Phone Number ARIA RO MODEL [address] [place] [address] * RAD ONC ARIA SESSION SUMMARY (01/27/2025 [...] ORDERABLES F inal Result Performing Organization Address [facility] Co de Phone Number ARIA RO MODEL [address] [place] [address] * RAD ONC ARIA SESSION SUMMARY (01/24/2025 [...] ORDERABLES F inal Result Performing Organization Address [facility] Co de Phone Number ARIA RO MODEL [address] [place] [address] * RAD ONC ARIA SESSION SUMMARY (01/23/2025 [...] ORDERABLES F inal Result Performing Organization Address [facility] Co de Phone Number ARIA RO MODEL [address] [place] [address] * RAD ONC ARIA SESSION SUMMARY (01/22/2025 [...] ORDERABLES F inal Result Performing Organization Address City/[facility] Co de Phone Number KJ ROCK MODEL [address] [place] [address] from Last 3 Months Insurance MEDICARE [facility] Care Teams Vice President And Portfolio Manager Relationship Specialty Start Date End Date Bobby Minor MD [address] [place] [address] PCP - General Internal Medicine 12/25/24 Elieser Rick MD [address] [place] [address] Consulting Physician Otolaryngology 12/24/24 Dave Ramos MD [address] [place] [address] Consulting Physician Radiation Oncology 12/24/24 Juan Ramon Ferris MD [address] [place] [address] Consulting Physician Otolaryngology 12/25/24
--- OUTSIDE RECORDS SUMMARY | 2025-04-24 09:49 | XMS_ITS ---
Author Organization [facility] Address [address] [place] [address] Phone Care Team Providers Care Soil Analyst Name Role Phone Elieser Rick MD Unavailable [phone] aDve Ramos MD Unavailable [phone] Bobby Minor MD Primary Care Provider [phone] Juan Ramon Ferris MD Unavailable [phone] Active Problems Problem Noted Date Diagnosed Date [...] information found. Current Radiation Episodes * 3D BAT BOY/GIRL: Bilateral GlottisOverview* First Treatment Date Latest Treatment Date Treatment Site Technique Goal Episode Provider 01/13/2025 02/21/2025 Bilateral Glottis 3D BAT BOY/GIRL Curative * Linked Problems Treatment Courses* Course C1 01/13/2025 - 02/21/2025 Treatment Period Fraction Dose Fractions Total Dose Plans Planned Glottis_6300 01/13/2025 - 02/21/2025 225 cGy 2 / 2 6,300 cGy Glottis_Revis 01/15/2025 - 02/21/2025 225 cGy 5,850 cGy Reference Points Delivered Glottis_PRP 01/13/2025 - 02/21/2025 6,300 cGy
--- OUTSIDE RECORDS SUMMARY | 2025-04-24 09:49 | XMS_ITS | Clinical Summary ---
Author Organization [facility] Ting vasquez Ray Address [address] [place] [address] Care Team Providers Care Scissors Grinder Name Role Phone Bobby Minor MD Primary [...] Encounters Date Type Department Care Team Description 03/06/2025 Telephone [facility] Oncology and Hematology - [place] [address] Ari Acosta MD cancelled appt 02/26/2025 External Device Data STL ABSTRACTION Provider, Abstract 02/25/2025 External Device Data STL ABSTRACTION Provider, Abstract 02/04/2025 External Device Data STL ABSTRACTION Provider, Abstract 01/28/2025 External Device Data STL ABSTRACTION Provider, [...] Flex Sig/CT Colonography Q 5 years 1997 RSV VACCINE (60+ or ) (1 - Risk 60-74 years 1-dose series) 2012 ZOSTER VACCINE (3 of 3) 06/27/2019 05/02/2019, 09/05 PNEUMOCOCCAL VACCINE 50+ YEA RS (3 of 3 - PCV20 or PCV21) 01/14/2020 01/13/2015, 09/22/2014 INFLUENZA VACCINE (#1) 2025 8, 04/07/2017, 05/01/2013 COVID-19 Vaccine ( - 2024-2 6 season) 2025 10/24/2020, 09/26/2020 BREAST CANCER SCREENING 05/14/2025 05/14/20, 05/14/2024, 04/28/2023, Additional history exists OSTEOPOROSIS SCREENING 12/18/2025 12/18/2020 COLORECTAL SCREENING 03/10/2032 03/10/2022 Colorectal Cancer Screening 03/10/2032 Insurance MEDICARE PART [facility] Care Teams Scissors Grinder Relationship Specialty Start Date End Date Bobby Minor MD [address] [place] [address] PCP - General Internal Medicine 03/26/24
--- OUTSIDE RECORDS SUMMARY | 2025-04-24 09:49 | XMS_ITS | Encounter Summary ---
Author Organization [facility] Address [address] [facility] [place] [address] Phone Care Team Providers Care Bridge Welder Name Role Phone Elieser Rick MD Unavailable [phone] Dave Ramos MD Unavailable [phone] Bobby Minor MD Primary Care Provider [phone] Juan Ramon Ferris MD Unavailable [phone] Encounter Details Date Type Department Care Team (Late st Contact Info) Description 02/05/2025 Telephone [facility] Oncology Services [address] [place] [address] Karly Wolf, RTT [place] Social History Tobacco Use Types Packs/Day Years [...] as of this encounter Miscellaneous Notes * Telephone Encounter - Karly Wolf RTT - 02/05/2025 9:46 AM CDT Treatment machine down this am. Patient radiation treatment was cancelled and patient was ask to return tomorrow at scheduled time. Dr. Ramos aware. documented in this encounter Plan of Treatment Upcoming Encounters Date Type Department Care Team (Late st Contact Info) Description 06/09/2025 9:30 AM CDT [facility] [address] [place] [address] Dave Ramos MD [address] [place] [address] Discharge Disposition: Discharged to home or Selfcare documented as of this encounter Visit Diagnoses Not on filedocumented in this encounter Care Teams Bridge Welder Relationship Specialty Start Date End Date Bobby Minor MD [address] [place] [address] PCP - General Internal Medicine 12/25/24 Elieser Rick MD [address] [place] [address] Consulting Physician Otolaryngology 12/24/24 Dave Ramos MD [address] [place] [address] Consulting Physician Radiation Oncology 12/24/24 Juan Ramon Ferrsi MD [address] [place] [address] Consulting Physician Otolaryngology 12/25/24 documented as of this encounter
[2025-04-24 10:38] LABS: Alanine Aminotransferase 26 U/L (6-35); Albumin Level 4.6 g/dL (3.5-5.1); Alkaline Phosphatase 51 U/L (38-126); Anion Gap 12 mmol/L (4-12); Aspartate Amino Transferase 28 U/L (14-36); Bilirubin,Total 0.6 mg/dL (0.2-1.3); Blood Urea Nitrogen 21 mg/dL (7-17); Calcium 10.1 mg/dL (8.4-10.2); Carbon Dioxide 31 mmol/L (22-30); Chloride 99 mmol/L (98-107); Estimated Glomerular Filt Rate 56; Glucose 111 mg/dL (65-110); Osmolality Calculated 298 mOsm/kg (285-295); Potassium 4.3 mmol/L (3.4-5.0); Sodium 142 mmol/L (137-145); Total Protein 7.2 g/dL (6.3-8.2)
[2025-04-24 10:53] LABS: Free T3 3.51 pg/mL (2.18-3.98)
[2025-04-24 10:54] LABS: Free T4 Free Thyroxine 1.23 ng/dL (0.78-2.19)
[2025-04-24 11:08] LABS: Thyroid Stimulating Hormone 1.190 uIU/mL (0.465-4.680)
== END 2025-04-24 09:08 | disposition home or self-care (01) ==
PROVIDERS: PCP Internal Medicine; Visit Provider Internal Medicine
DX: E03.4 Atrophy of thyroid (acquired) (principal); R74.01 Elevation of levels of liver transaminase levels
CPT/HCPCS: 36415; 80053; 84439; 84443; 84481

== ENCOUNTER 2025-06-25 08:11 | Outpatient (CLI) | payer MEDICARE, BC, SELFPAY ==
--- NOTE | ~2025-06-25 | MM_ITS ---
EXAMINATION: MM screening [facility] BI w kristi HISTORY: Screening TECHNIQUE: Craniocaudal and mediolateral oblique 3-D tomosynthesis images were obtained and synthetic 2-D images were generated. CAD analysis was submitted and interpreted. COMPARISON: Comparison to multiple prior studies sequentially, with oldest reviewed study dated 12/18/2020. BREAST PARENCHYMAL COMPOSITION: Not dense: There are scattered areas of fibroglandular density. FINDINGS: There is no evidence of suspicious mass, calcification, or architectural distortion to suggest malignancy in either breast. There has been no suspicious interval change. IMPRESSION: 1. No mammographic evidence of malignancy. 2. Recommend routine screening mammography in one year. BI-RADS Category 1: Negative Reviewed, dictated and finalized at location B. SOLUTION ARCHITECT
--- OUTSIDE RECORDS SUMMARY | 2025-06-25 08:17 | XMS_ITS | Encounter Summary ---
Author Organization [facility] Address [address] [place] [address] Phone Care Team Providers Care Equipment Sterilizer Name Role Phone Elieser Rick MD Unavailable [phone] Dave Ramos MD Unavailable [phone] Bobby Minor MD Primary Care Provider [phone] Juan Ramon Ferris MD Unavailable [phone] Encounter Details Date Type Department Care Team (Late st Contact Info) Description 02/05/[address] [facility] Oncology Services [address] [place] [address] Karly Wolf, RTT [place] Social History Tobacco Use Types Packs/Day Years [...] Care Team (Late st Contact Info) Description 12/04/2025 10:00 AM CDT Office Visit [facility] Oncology Services [address] [place] [address] Dave Ramos MD [address] [place] [address] Discharge Disposition: Discharged to home or Selfcare documented as of this encounter Visit Diagnoses Not on filedocumented in this encounter Care Teams Equipment Sterilizer Relationship Specialty Start Date End Date Bobby Minor MD [address] [place] [address] PCP - General Internal Medicine 12/25/24 Elieser Rick MD [address] [place] [address] Consulting Physician Otolaryngology 12/24/24 Dave Ramos MD [address] [place] [address] Consulting Physician Radiation Oncology 12/24/24 Juan Ramon Ferris MD [facility] [place] [address] Consulting Physician Otolaryngology 12/25/24 documented as of this encounter
--- OUTSIDE RECORDS SUMMARY | 2025-06-25 08:17 | XMS_ITS ---
Author Organization [facility] Address [address] [place] [address] Phone Care Team Providers Care Visual Merchandiser Name Role Phone Elieser Rick MD Unavailable [phone] Dave Ramos MD Unavailable [phone] Bobby Minor MD Primary Care Provider [phone] Juan Ramon Ferris MD Unavailable [phone] Active Problems Problem Noted Date Diagnosed Date Pulmonary nodules 06/09/2025 History of therapeutic radiation 02/26/2025 Overview (02/26/2025): Glottic radiotherapy, [address] in 28 fractions, from 01/13/2025 thru 02/21/2025. 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 Current Radiation Episodes * 3D RECREATION OFFICER: Bilateral GlottisOverview* First Treatment Date Latest Treatment Date Treatment Site Technique Goal Episode Provider 01/13/2025 02/21/2025 Bilateral Glottis 3D RECREATION OFFICER Curative * Linked Problems Treatment Courses* Course C1 01/13/2025 - 02/21/2025 Treatment Period Fraction Dose Fractions Total Dose Plans Planned Glottis_6300 01/13/2025 - 02/21/2025 225 cGy 2 / 2 6,300 cGy Glottis_Revis 01/15/2025 - 02/21/2025 225 cGy 26 / 26 5,850 cGy Reference Points Delivered Glottis_PRP 01/13/2025 - 02/21/2025 6,300 cGy Resolved Problems Problem Noted Date Diagnosed Date Resolved Date Cancer related pain 03/07/2025 06/09/20 25 Laryngeal edema 03/07/2025 06/09/2025 Nausea and vomiting 03/07/2025 06/09/20 25 Radiation esophagitis 02/04/20252024 Overview (02/26/2025): Acute radiation laryngitis/pharyngitis/esophagitis. Adverse effect of radiation 02/04/2025 06/09/2025
--- OUTSIDE RECORDS SUMMARY | 2025-06-25 08:17 | XMS_ITS | Patient Health Record ---
Author Organization [facility] Address [address] [facility] [facility] [place] [address] Support Name Relationship Address Phone Carol Perez Guarantor Unknown Unavailable Reason For Referral No Information Plan Of Treatment No Information Insurance Providers Payer Name Payer Address Payer Phone Subscriber Number Group Number Insured Name Patient Relationship to Insured Coverage Start Date Coverage End Date MEDICARE PART [place] [address] [address] [place] [address] [id number] Carol Perez Self - patient is the insured [facility] [address] [place] [address] [id number] Carol Perez Self - patient is the insured
--- OUTSIDE RECORDS SUMMARY | 2025-06-25 08:17 | XMS_ITS | Clinical Summary ---
Author Organization [facility] Tammivince Lama Address [address] [place] [address] Care Team Providers Care Joinery Setter Out Name Role Phone Bobby Minor MD Primary [...] Encounters Date Type Department Care Team Description 06/04/2025 External Device Data STL ABSTRACTION Provider, Abstract 06/03/2025 External Device Data STL ABSTRACTION Provider, Abstract 05/06/2025 External Device Data STL ABSTRACTION Provider, Abstract 04/29/2025 External Device Data STL ABSTRACTION Provider, Abstract [...] Flex Sig/CT Colonography Q 5 years 1997 ZOSTER VACCINE (3 of 3) 06/27/2019 05/02/2019, 09/05 PNEUMOCOCCAL VACCINE 50+ YEA RS (3 of 3 - PCV20 or PCV21) 01/14/2020 01/13/2015, 09/22/2014 INFLUENZA VACCINE (#1) 2025 8, 04/07/2017, 05/01/2013 COVID-19 Vaccine (3 - 2024-2 6 season) 2025 10/24/2020, 09/26/2020 BREAST CANCER SCREENING 05/14/2025 05/14/20 24, 05/14/2024, 04/28/2023, Additional history exists OSTEOPOROSIS SCREENING 12/18/2025 12/18/2020 RSV VACCINE (60+ or ) (1 - 1-dose 75+ series) 2027 COLORECTAL SCREENING 03/10/2032 03/10/2022 Colorectal Cancer Screening 03/10/2032 Insurance [facility] [employer] Care Teams Joinery Setter Out Relationship Specialty Start Date End Date Bobby Minor MD [address] [place] [address] PCP - General Internal Medicine 03/26/24
--- OUTSIDE RECORDS SUMMARY | 2025-06-25 08:17 | XMS_ITS | Clinical Summary ---
Author Organization [facility] Address [address] [place] [address] Phone Care Team Providers Care Bindery Helper Name Role Phone Elieser Rick MD Unavailable [phone] Dave Ramos MD Unavailable [phone] Bobby Minor MD Primary Care Provider [phone] Juan Ramon Ferris MD Unavailable [phone] Allergies Active Allergy Reactions Criticality Noted Date [...] 2% MT SOLN 480 mL 1 01/28/20 Active Additional Information Patient not taking.Reported on 06/09/2025 naloxone HCl (Narcan) 4 MG/0.1ML LiquidIndications:G lottis carcinoma,Radiation esophagitis 1 [place]bilt by Nasal route as needed for Opioid Reversal. Administer in one nostril for symptoms of overdose (severe sleepiness, breathing problems, not responsive). Call 911. May repeat 1 spray in alternate nostril in 2-3 minutes if needed. 2 Each 02/04/20 Active Additional Information Patient not taking.Reported on 06/09/2025 fentaNYL (DURAGESIC) 25 MCG/HR PATCH 72 HRIndications:Chron ic Pain,Pain due to radiation esophagitis 1 Patch by Transdermal route every 72 hours. Upon removal, safely discard used patch by immediately folding sticky sides together and flushing patch down the toilet. Indications: Chronic Pain, Pain due to radiation esophagitis 10 Patch 02/18/20 Active Additional Information Patient not taking.Reported on 06/09/2025 ondansetron (ZOFRAN-ODT) 4 MG TABLET DISPERSIBLEIndicati ons:Radiation-Induc ed Nausea and Vomiting Take 1 Tablet by mouth every 8 hours as needed for Nausea - 1st line. Indications: Nausea and Vomiting caused by Radiation Treatment 60 Tablet 03/07/20 Active Additional Information Patient not taking.Reported on 06/09/2025 HYDROcodone-Acetami nophen 7.5-325 MG/15ML SolutionIndications :Glottis carcinoma,Radiation esophagitis,Cancer related pain Take 15 mL by mouth every 6 hours as needed for Moderate or more severe pain or Cough. 540 mL 03/07/20 Active Additional Information Patient not taking.Reported on 06/09/2025 dexamethasone (DECADRON) 1 MG TabletIndications:R adiation-induced laryngeal edema Take 4 tabs PO x 3 days; then 3 tabs PO x 3 days, then 2 tabs PO x 3 days, then 1 tab PO x 3 days, then discontinue medication. Indications: Radiation-induce d laryngeal edema 40 Tablet 03/17/20 25 Active Additional Information Patient not taking.Reported on 06/09/2025 Active Problems Problem Noted Date Diagnosed Date [...] and squamous cell carcinoma of the back. Resolved Problems Problem Noted Date Diagnosed Date Resolved Date Cancer related pain 03/07/2025 06/09/20 25 Laryngeal edema 03/07/2025 06/09/2025 Nausea and vomiting 03/07/2025 06/09/20 25 Radiation esophagitis 02/04/20252024 Overview (02/26/2025): Acute radiation laryngitis/pharyngitis/esophagitis. Adverse effect of radiation 02/04/2025 06/09/2025 Encounters Date Type Department Care Team Description 06/09/2025 11:30 AM CDT [facility] [address] [place] [address] Dave Ramos MD Glottis carcinoma (Primary Dx); History of therapeutic radiation; Pulmonary nodules; History of nonmelanoma skin cancer Discharge Disposition: Discharged to home or Selfcare 06/09/2025 Travel 06/07/2025 Travel 03/26/2025 [facility] [address] [place] [address] from Last 3 Months Family History Medical [...] Sign Reading Time Taken Comments Blood Pressure 144/81 06/09/2025 11:31 AM CDT Pulse 67 06/09/2025 11:31 AM CDT Temperature 36.8 C (98.2 F) 06/09/2025 11:31 AM CDT Respiratory Rate 16 06/09/2025 11:3 1 AM CDT Oxygen Saturation 98% 06/09/2025 11: 31 AM CDT Inhaled Oxygen Concentration - - Weight 114.7 kg (252 lb 12.8 oz) 2024 11:31 AM CDT Height 165.1 cm (5' 5) 06/09/2025 11:3 1 AM CDT Body Mass Index 42.07 06/09/2025 11:31 AM CDT Plan of Treatment Upcoming Encounters Date Type Department Care Team (Late st Contact Info) Description 12/04/2025 10:00 AM CDT [facility] [address] [place] [address] Dave Ramos MD [address] [place] [address] Discharge Disposition: Discharged to home or Selfcare Health Maintenance Due Date Last Done Comments DEXA Bone Density 1950 Hepatitis C Virus (HCV) Screening 1950 Mammogram 1950 TdaP Immunization 1950 Cologuard 1997 Colonoscopy 1997 Colorectal Cancer Screening 1997 Immunochemical Fecal Occult Blood 1997 Medicare Initial AWV [id number] 05/14/2018 Zoster Immunization (2 of 2) 06/27/2019 05/02/2019, 09/05/2012 Pneumococcal Immunization (50+ years) (3 of 3 - PCV20 or PCV21) 09/22/2019 01/13/2015, 09/22/2014 SARS-COV-2 Immunization (9 - Moderna risk 2024- season) 2025 05/30/2025, 04/25/2024, 06/20/2023, Additional history exists Respiratory Syncytial Virus (RSV) Immunization (Adult) Completed 07/03/2023 Influenza Immunization Completed , 05/24/2024, 06/27/2023, Additional history exists Lung Cancer Screening Discontinued 05/30/2025 , 05/30/2025, 05/31/2024, Additional history exists Hepatitis B Immunization Aged [...] Procedure Name Priority Date/Time Associated Diagnosis Comments ENT PROCEDURE 04/01/2025 12:00 AM CDT from Last 3 Months Results * ENT PROCEDURE (04/01/2025 12:00 AM CDT) 04/01/2025 us Provider Scan GEN ORDERS Final Result SCAN from Last 3 Months Insurance MEDICARE [facility] Care Teams Bindery Helper Relationship Specialty Start Date End Date Bobby Minor MD [address] [place] [address] PCP - General Internal Medicine 12/25/24 Elieser Rick MD [facility] [place] [address] Consulting Physician Otolaryngology 12/24/24 Dave Ramos MD [address] [place] [address] Consulting Physician Radiation Oncology 12/24/24 Juan Ramon Ferris MD [address] [place], [place] [id number] Consulting Physician Otolaryngology 12/25/24
--- OUTSIDE RECORDS SUMMARY | 2025-06-25 08:17 | XMS_ITS | Clinical Summary ---
Author Organization [facility] Address [address] [place] [address] Care Team Providers Care Fugitive Detective Name Role Phone Bobby Minor MD Primary Care Provider [phone] Bobby Minor MD Unavailable [phone] Allergies Active Allergy Reactions Criticality Noted Date [...] 07/21/2010 Closed fracture of orbital floor 07/21/2010 Encounters Date Type Department Care Team Description 05/30/2025 10:00 AM CDT Telemedicine [facility] [address] [facility] [address] [place] [id number] Irene Gardner NP Pulmonary nodule (Primary Dx) 05/30/2025 9:46 AM CDT - 05/30/2025 11:59 PM CDT Hospital Encounter [facility] [place] [address] [facility] [address] [place] [address] Pulmonary nodule Discharge Disposition: Discharge to home or self care 05/30/2025 Orders Only [facility] [address] [facility] [address] [place] [id number] Prabhjot Keenan MD Pulmonary nodule (Primary Dx) 05/30/2025 [facility] [address] [facility] [address] [place] [phone] Prabhjot Keenan MD Pulmonary nodule (Primary Dx) from Last 3 Months Immunizations Immunization Administration Dates Next Due Influenza, [...] on file Legal Sex Female 3:22 AM [employer]OKE [employer] Gender Identity Not on file Sexual Orientation [...] Influenza Vaccine (#1) 2025 8, 04/07/2017, 05/01/2013 Procedures Procedure Name Priority Date/Time Associated Diagnosis Comments CT CHEST WO CONTRAST Schedule Routine, Read Routine (OP Routine) 05/30/2025 9:53 AM CDT Pulmonary nodule from Last 3 Months Results * CT chest without contrast (05/30/2025 9:53 AM CDT) Anatomical Region Laterality Modality Body N/A Computed Tomogra phy 05/30/2025 10:0 7 AM CDT Impressions 05/30/2025 10:07 AM CDT 1. Unchanged right lower lobe pulmonary nodule from 2023 along the right diaphragm and could be a pleural lymph node, not definitely present on more remote exams. Recommend follow-up in 6-12 months. 2. Other multiple pulmonary nodules are unchanged from 2020. Electronically signed by: Kadie Roth MD Narrative 05/30/2025 10:07 AM CDT EXAMINATION: Computed tomography of the chest without intravenous contrast HISTORY: Follow-up pulmonary nodule TECHNIQUE: Transaxial computed tomographic images of the chest were obtained without intravenous contrast according to the standard protocol. COMPARISON: 05/31/2024, 05/12/2023, 12/01/2021, 04/14/2021 FINDINGS: No axillary, supraclavicular, mediastinal, or hilar lymphadenopathy. Calcified mediastinal and hilar lymph nodes from old granulomatous disease. Normal heart size. No pericardial effusion. Multivessel coronary arterial calcifications. Unchanged right lower lobe nodule measuring 8 mm, series 2 image 111 and series 4 image 85, along the right diaphragm. This was previously not seen in 2022 and could have been obscured by respiratory motion, and is not seen on more remote priors. Other multiple bilateral pulmonary nodules are unchanged from 202, largest in the left lower lobe measuring 8 mm, series 3 image 115. A 4 mm right lower lobe nodule at series 3 image 114. Other small pulmonary nodules are seen throughout both lungs and are unchanged. No new or enlarging pulmonary nodule. Scattered debris within the lower lobe bronchi. The imaged upper abdomen shows hepatic steatosis with focal fatty sparing near the periportal region. There is old granulomatous disease in the spleen and nodular thickening of the left adrenal gland, unchanged. Otherwise the upper abdomen is unremarkable. Atrophic or absent thyroid. No suspicious osseous lesion. Procedure Note Kadie Roth MD - 05/30/2025 EXAMINATION: Computed tomography of the chest without intravenous contrast HISTORY: Follow-up pulmonary nodule TECHNIQUE: Transaxial computed tomographic images of the chest were obtained without intravenous contrast according to the standard protocol. COMPARISON: 05/31/2024, 05/12/2023, 12/01/2021, 04/14/2021 FINDINGS: No axillary, supraclavicular, mediastinal, or hilar lymphadenopathy. Calcified mediastinal and hilar lymph nodes from old granulomatous disease. Normal heart size. No pericardial effusion. Multivessel coronary arterial calcifications. Unchanged right lower lobe nodule measuring 8 mm, series 2 image 111 and series 4 image 85, along the right diaphragm. This was previously not seen in 2022 and could have been obscured by respiratory motion, and is not seen on more remote priors. Other multiple bilateral pulmonary nodules are unchanged from 2020, largest in the left lower lobe measuring 8 mm, series 3 image 115. A 4 mm right lower lobe nodule at series 3 image 114. Other small pulmonary nodules are seen throughout both lungs and are unchanged. No new or enlarging pulmonary nodule. Scattered debris within the lower lobe bronchi. The imaged upper abdomen shows hepatic steatosis with focal fatty sparing near the periportal region. There is old granulomatous disease in the spleen and nodular thickening of the left adrenal gland, unchanged. Otherwise the upper abdomen is unremarkable. Atrophic or absent thyroid. No suspicious osseous lesion. IMPRESSION: 1. Unchanged right lower lobe pulmonary nodule from 2023 along the right diaphragm and could be a pleural lymph node, not definitely present on more remote exams. Recommend follow-up in 6-12 months. 2. Other multiple pulmonary nodules are unchanged from 2020. Electronically signed by: Kadie Roth MD Prabhjot Keenan MD IMG CT PROCEDURES Final R esult from Last 3 Months Insurance MEDICARE [facility] FEDERAL MEDICARE [facility] [place]AL BL[place] MEDICARE Care Teams Fugitive Detective Relationship Specialty Start Date End Date Bobby Minor MD [address] [place] [address] PCP - General Internal Medicine 12/25/20 Bobby Minor MD [address] [place] [address] Referring Physician Internal Medicine 05/31/24
== END 2025-06-25 08:12 | disposition home or self-care (01) ==
PROVIDERS: PCP Internal Medicine; Visit Provider Internal Medicine
DX: Z12.31 Encounter for screening mammogram for malignant neoplasm of breast (principal)
CPT/HCPCS: 77063; 77067